=== PATIENT | female | born 1980 | race Caucasian/White ===

== ENCOUNTER 2020-09-19 14:49 | Outpatient (REF) | payer OTHER, SELFPAY ==
[2020-09-19 15:39] LABS: MANUAL DIFF FLAG NO
[2020-09-19 15:46] LABS: Basophils Percent Auto 0.5 % (0-2); Eosinophils Absolute Auto 0.3 X10*3/uL (0.0-0.4); Hematocrit 39.1 % (37-47); Hemoglobin 12.8 g/dl (12.0-16.0); Imm Gran Abs Auto 0.03 X10*3/uL (0.00-0.03); Imm Gran Pct Auto 0.3 % (0.0-0.4); Lymphocytes Absolute Auto 2.5 X10*3/uL (1.2-4.9); Lymphocytes Percent Auto 29.2 % (20-40); Mean Corpuscular HGB Conc 32.7 g/dl (31.0-35.0); Mean Corpuscular Hemoglobin 29.7 pg (27.0-33.0); Mean Corpuscular Volume 90.7 fL (80-98); Mean Platelet Volume 11.3 fL (9.4-12.3); Monocytes Absolute Auto 0.6 X10*3/uL (0.1-1.2); Monocytes Percent Auto 7.2 % (2-11); Neutrophils Absolute Auto 5.2 X10*3/uL (2.0-8.3); Neutrophils Percent Auto 59.8 % (45-73); Platelet Count 346 X10*3/uL (160-400); Red Blood Count 4.31 X10*6/uL (4.20-5.50); Red Cell Distribution Width 13.4 % (11.0-16.0); White Blood Count 8.6 X10*3/uL (4.8-10.8)
[2020-09-19 16:07] LABS: Anion Gap 10 (12-20); Blood Urea Nitrogen 7 mg/dL (9-16); Calcium 8.9 mg/dL (8.4-10.2); Carbon Dioxide 25 mmol/L (22-29); Chloride 106 mmol/L (96-108); Estimated Glomerular Filt Rate > 60; Glucose Fasting 80 mg/dL (60-99); Potassium 4.8 mmol/l (3.3-5.1); Sodium 136 mmol/L (135-145)
[2020-09-19 16:33] LABS: Erythrocyte Sedimentation Rate 10 MM/HR (0-20)
== END 2020-09-19 14:50 | disposition home or self-care (01) ==
LOC: HO.LAB 14:49
PROVIDERS: Visit Provider Nurse Practitioner Family
DX: M25.512 Pain in left shoulder (principal)
CPT/HCPCS: 36415; 80048; 85025; 85652

== ENCOUNTER → 2021-03-13 14:16 | Outpatient (BNVA) | payer OTHER, SELFPAY | PROVIDERS: PCP Internal Medicine; Visit Provider Urology | DX: N39.0 Urinary tract infection, site not specified (principal) | CPT/HCPCS: 51798; 99202 ==

== ENCOUNTER 2021-05-07 14:16 | Outpatient (REF) | payer OTHER, SELFPAY ==
--- NOTE | ~2021-05-07 | US_ITS ---
EXAMINATION: US VENOUS ULTRASOUND WITH DOPPLER LOWER EXTREMITY, LEFT CLINICAL INFORMATION: Pain left lower leg. COMPARISON: None TECHNIQUE: Ultrasound of the deep veins is performed from the hip to the calf with compression sonography and color and pulse Doppler assessment. Spectral analysis with color-flow imaging is performed. FINDINGS: There is normal venous compression and respiratory variation and augmented flow. The visualized common femoral vein, superficial femoral vein, profunda femoral vein, popliteal vein, and the trifurcation region shows no evidence of deep venous thrombosis. There is no significant popliteal fossa cyst. There is a small lymph nodes seen in the groin measuring 2.1 x 0.9 x 0.9 cm. If the patient's symptoms persist, followup ultrasound in 5 days 7 days might be of value to exclude proximal propagation from a non-visualized calf vein. US/US venous duplex LE IMPRESSION: No DVT demonstrated in the left lower extremity.
== END 2021-05-07 14:17 | disposition home or self-care (01) ==
LOC: HO.HMGCX 14:16
PROVIDERS: PCP Internal Medicine; Visit Provider Nurse Practitioner Family
DX: M79.662 Pain in left lower leg (principal); M25.569 Pain in unspecified knee
CPT/HCPCS: 93971

== ENCOUNTER 2021-07-13 00:27 | Emergency (ER) | payer OTHER, SELFPAY ==
--- NOTE | ~2021-07-13 | XR_ITS ---
EXAMINATION: XR ANKLE, LEFT CLINICAL INFORMATION: Ankle injury COMPARISON: 06/24/2018 TECHNIQUE: AP, lateral, and mortise views of the left ankle. FINDINGS: No fracture or dislocation. The ankle mortise is congruent. No ankle joint effusion. The soft tissues are unremarkable. XR/XR ankle LT min 3V IMPRESSION: No acute osseous abnormality.
[2021-07-13 00:36] VITALS: BP 104/69; PULSE 116; RESP 16; TEMP 36.2; O2SAT 94; BMI 32.8
[2021-07-13] MEDS: Acetaminophen 325 MG TABLET 975 MG PO (05:20)
[2021-07-13] MEDS: Ibuprofen 400 MG TABLET PO (05:20)
--- NOTE | 2021-07-13 05:20 | ED_ITS ---
HPI - Extremity Injury (Lower) General Chief Complaint: Extremity Injury, Lower Stated Complaint: foot inj Time Seen by Provider: 07/13/21 05:10 Source: patient Mode of arrival: ambulatory History of Present Illness HPI Narrative: 40-year-old female states that she was walking down a small hill yesterday and twisted her left ankle with subsequent swelling and pain but was able to continue to bear weight but wanted to have the ankle further evaluated. She states that she has twisted this ankle many times in the past. She denies any numbness or tingling into the foot and otherwise has no acute complaints. Related Data Previous Rx's Medication Instructions Recorded nitrofurantoin macrocrystal 50 mg 50 mg PO BEDTIME 90 Days #90 cap 01/24/21 capsule ascorbic acid (vitamin C) 1,000 mg 1 g PO DAILY 90 Days #90 tab 03/13/21 tablet sulfamethoxazole 400 1 tab PO BEDTIME 90 Days #90 tab 03/13/21 mg-trimethoprim 80 mg tablet (Bactrim) cyclobenzaprine 5 mg tablet 5 mg PO TID PRN #15 tab 05/07/21 Allergies Allergy/AdvReac Type Severity Reaction Status Date / Time No Known Allergies Allergy Verified 01/24/21 13:24 Review of Systems Review of Systems: Pertinent positives and negatives as stated in HPI 10 point review of systems is otherwise negative. [facility] Past Medical History Source: nursing notes reviewed Medical History Recurrent UTI UTI (urinary tract infection) Surgical History History of umbilical hernia repair Family History Family History Father No problems noted. Mother No problems noted. Social History Social History Alcohol intake: never Advance Directives: No Advance Directives Information Provided: No Patient : No Physical Exam Vital Signs: Vital Signs: Last Vital Signs Temp 97.1 F 07/13/21 00:36 Pulse 116 H 07/13/21 00:36 Resp 16 07/13/21 00:36 BP 104/69 07/13/21 00:36 Pulse Ox 94 07/13/21 00:36 Body Mass Index 32.8 VITAL SIGNS: Reviewed. GENERAL: Well developed, well nourished, in no acute distress. HEAD: Normocephalic/atraumatic EYES: PERRLA, EOMI LUNGS: Normal breath sounds. No adventitious sounds or accessory muscle use. SpO2<94> CARDIOVASCULAR: Regular rate and rhythm without noted murmurs ABDOMEN: Soft, non-tender, non-distended with bowel sounds. LEFT ANKLE: Mild swelling noted at the lateral malleolus without erythema or induration and strong, palpable DP/PT with sensation intact. NEUROLOGIC: Alert and oriented x 4. Course Course Course Narrative: 40-year-old female with history and clinical presentation consistent with ankle sprain and on review of all x-rays there is no evidence to suggest fracture or dislocation. Patient was provided with combination analgesics and an Jose Angel wrap was placed on her left ankle and she was discharged home in stable condition. Discharge Plan Discharge Clinical Impression: Left ankle sprain Patient Disposition: Home, Self-Care Instructions: Ankle Sprain (ED), R.I.C.E. Treatment (ED) Additional Instructions: 1. Recommend [id number] Tylenol/ibuprofen as needed for pain control. Also apply ice to unexposed skin for 10-15 minutes, 3 to 4 times a day as needed. 2. Please follow-up with your primary care provider in the next 2-3 days for re- evaluation. Return to the ER for acute worsening of symptoms. Prescriptions: No Action cyclobenzaprine 5 mg tablet 5 mg PO TID PRN (Reason: muscle spasm) Qty: 15 RF: 0 nitrofurantoin macrocrystal 50 mg capsule 50 mg PO BEDTIME 90 Days Qty: 90 RF: 1 sulfamethoxazole-trimethoprim [Bactrim] 400-80 mg tablet 1 tab PO BEDTIME 90 Days Qty: 90 RF: 0 ascorbic acid (vitamin C) 1,000 mg tablet 1 g PO DAILY 90 Days Qty: 90 RF: 1 Referrals: Catherine Cuenca MD [Primary Care Provider] - 2 days
== END 2021-07-13 05:50 | disposition home or self-care (01) ==
PROVIDERS: Emergency Provider Student in an Organized Health Care Education/Training Program; PCP Internal Medicine
DX: S93.402A Sprain of unspecified ligament of left ankle, initial encounter (principal); X50.1XXA Overexertion from prolonged static or awkward postures, initial encounter; Y93.01 Activity, walking, marching and hiking; Y92.828 Other wilderness area as the place of occurrence of the external cause; Y99.9 Unspecified external cause status
CPT/HCPCS: 73610; 99283

== ENCOUNTER 2021-07-30 10:15 | Outpatient (REF) | payer OTHER, SELFPAY ==
--- NOTE | ~2021-07-30 | XR_ITS ---
EXAMINATION: XR FOOT, LEFT CLINICAL INFORMATION: Pain in left foot. COMPARISON: XR left ankle 07/13/2021. XR left foot 07/13/2016. TECHNIQUE: AP, lateral, and oblique views of the left foot. FINDINGS: The bones and soft tissues are normal. No fracture. Alignment is anatomic. Joint spaces are maintained. XR/XR foot LT 2V IMPRESSION: Normal left foot.
[2021-07-30 10:58] LABS: MANUAL DIFF FLAG NO
[2021-07-30 11:05] LABS: Basophils Percent Auto 0.5 % (0-2); Eosinophils Absolute Auto 0.3 X10*3/uL (0.0-0.4); Hematocrit 39.7 % (37-47); Hemoglobin 13.4 g/dl (12.0-16.0); Imm Gran Abs Auto 0.02 X10*3/uL (0.00-0.03); Imm Gran Pct Auto 0.3 % (0.0-0.4); Lymphocytes Absolute Auto 2.2 X10*3/uL (1.2-4.9); Lymphocytes Percent Auto 29.3 % (20-40); Mean Corpuscular HGB Conc 33.8 g/dl (31.0-35.0); Mean Corpuscular Hemoglobin 30.7 pg (27.0-33.0); Mean Corpuscular Volume 90.8 fL (80-98); Mean Platelet Volume 11.3 fL (9.4-12.3); Monocytes Absolute Auto 0.6 X10*3/uL (0.1-1.2); Monocytes Percent Auto 7.7 % (2-11); Neutrophils Absolute Auto 4.4 X10*3/uL (2.0-8.3); Neutrophils Percent Auto 58.2 % (45-73); Platelet Count 313 X10*3/uL (160-400); Red Blood Count 4.37 X10*6/uL (4.20-5.50); Red Cell Distribution Width 12.8 % (11.0-16.0); White Blood Count 7.5 X10*3/uL (4.8-10.8)
[2021-07-30 11:09] LABS: Glucose Urine UA NEG (NEG); Leukocyte Esterase Urine NEG (NEG); Nitrite Urine NEG (NEG); Urine Blood NEG (NEG); Urine Ketones NEG (NEG); Urine Protein NEG (NEG-TRACE)
[2021-07-30 11:10] LABS: Appearance Urine CLEAR; Color Urine YELLOW
[2021-07-30 11:23] LABS: RBC Urine 0-2 /HPF (0); Squamous Epithelial Cell Urine 1+ /LPF; WBC Urine 0-2 /HPF (0-4)
[2021-07-30 11:25] LABS: Alanine Aminotransferase 28 U/L (0-31); Albumin Level 4.4 g/dL (3.5-5.0); Alkaline Phosphatase 62 U/L (39-117); Anion Gap 10 (12-20); Aspartate Amino Transferase 30 U/L (5-31); Bilirubin Total 0.7 mg/dL (0.0-1.0); Blood Urea Nitrogen 7 mg/dL (9-16); Calcium 9.2 mg/dL (8.4-10.2); Carbon Dioxide 23 mmol/L (22-29); Chloride 107 mmol/L (96-108); Estimated Glomerular Filt Rate > 60; Glucose Fasting 87 mg/dL (60-99); Potassium 4.4 mmol/L (3.3-5.1); Sodium 136 mmol/L (135-145); Total Protein 7.5 g/dL (6.5-8.0)
== END 2021-07-30 10:16 | disposition home or self-care (01) ==
LOC: HO.LAB 10:15
PROVIDERS: Absent Provider Nurse Practitioner Family; PCP Internal Medicine; Visit Provider Nurse Practitioner Family
DX: M79.672 Pain in left foot (principal); N39.0 Urinary tract infection, site not specified
CPT/HCPCS: 36415; 73620; 80053; 81001; 85025

== ENCOUNTER 2021-12-19 11:33 | Outpatient (REF) | payer OTHER, SELFPAY ==
--- NOTE | ~2021-12-19 | XR_ITS ---
EXAMINATION: XR LUMBAR SPINE CLINICAL INFORMATION: Reason for Exam M54.9 - Dorsalgia, unspecified COMPARISON: None TECHNIQUE: Frontal lateral and coned-down L5-S1 frontal lateral FINDINGS: Five [id number] lumbar vertebrae were identified maintaining normal height and alignments. Mild narrowing of intervertebral disc spaces suggest underlying degenerative disc disease. Radiolucency projecting over the vertebral body of L4 did not persist on coned-down L5-S1 probably bowel gas.. Paravertebral soft tissues are unremarkable. There are radiolucencies, most likely superimposed bowel gas.. No radiographic evidence of osteolytic or osteoblastic lesions. XR/XR lumbar spine 2-3V IMPRESSION: Mild narrowing of disc spaces suggest mild degenerative disc disease. No fracture. Bone alignments remain satisfactory.
== END 2021-12-19 11:34 | disposition home or self-care (01) ==
LOC: HO.XRAY 11:33
PROVIDERS: PCP Internal Medicine; Visit Provider Internal Medicine
DX: M54.9 Dorsalgia, unspecified (principal)
CPT/HCPCS: 72100

== ENCOUNTER 2021-12-20 09:01 | Outpatient (REF) | payer OTHER, SELFPAY ==
[2021-12-20 09:53] LABS: MANUAL DIFF FLAG NO
[2021-12-20 10:35] LABS: Basophils Absolute Auto 0.1 X10*3/uL (0.0-0.2); Basophils Percent Auto 0.8 % (0-2); Eosinophils Absolute Auto 0.3 X10*3/uL (0.0-0.4); Eosinophils Percent Auto 4.4 % (0-4); Hematocrit 41.3 % (37.0-47.0); Hemoglobin 13.7 g/dl (12.0-16.0); Imm Gran Abs Auto 0.02 X10*3/uL (0.00-0.03); Imm Gran Pct Auto 0.3 % (0.0-0.4); Lymphocytes Absolute Auto 2.3 X10*3/uL (1.2-4.9); Mean Corpuscular HGB Conc 33.2 g/dl (31.0-35.0); Mean Corpuscular Hemoglobin 30.5 pg (27.0-33.0); Mean Platelet Volume 10.8 fL (9.4-12.3); Monocytes Absolute Auto 0.6 X10*3/uL (0.1-1.2); Monocytes Percent Auto 7.6 % (2-11); Neutrophils Absolute Auto 4.3 x10*3/uL (2.0-8.3); Neutrophils Percent Auto 56.9 % (45-73); Platelet Count 343 X10*3/uL (160-400); Red Blood Count 4.49 X10*6/uL (4.20-5.50); Red Cell Distribution Width 13.3 % (11.0-16.0); White Blood Count 7.5 X10*3/uL (4.8-10.8)
[2021-12-20 12:21] LABS: Alanine Aminotransferase 51 U/L (0-31); Albumin Level 4.5 g/dL (3.5-5.0); Alkaline Phosphatase 66 U/L (39-117); Anion Gap 12 (12-20); Aspartate Amino Transferase 52 U/L (5-31); Bilirubin Total 0.7 mg/dL (0.0-1.0); Blood Urea Nitrogen 6 mg/dL (9-16); Calcium 9.4 mg/dL (8.4-10.2); Carbon Dioxide 25 mmol/L (22-29); Chloride 108 mmol/L (96-108); Cholesterol 212 mg/dL; Estimated Glomerular Filt Rate > 60; Glucose Fasting 95 mg/dL (60-99); HDL Cholesterol 59 mg/dL; LDL Cholesterol Calculated 134 mg/dl; Potassium 4.5 mmol/L (3.3-5.1); Sodium 140 mmol/L (135-145); Total Protein 7.5 g/dL (6.5-8.0); Triglycerides 95 mg/dL
[2021-12-20 12:25] LABS: Thyroid Stimulating Hormone 0.66 uIU/mL (0.32-4.0)
[2021-12-28 13:07] LABS: Vitamin D 25-OH, D2 <4 ng/mL; Vitamin D 25-OH, D3 <4 ng/mL; Vitamin D 25-OH, Total <4 ng/mL (30-100)
== END 2021-12-20 09:02 | disposition home or self-care (01) ==
LOC: HO.LAB 09:01
PROVIDERS: PCP Internal Medicine; Visit Provider Internal Medicine
DX: Z00.00 Encounter for general adult medical examination without abnormal findings (principal); E78.5 Hyperlipidemia, unspecified; E55.9 Vitamin D deficiency, unspecified; E66.9 Obesity, unspecified; Z68.33 Body mass index [BMI] 33.0-33.9, adult; D64.9 Anemia, unspecified
CPT/HCPCS: 36415; 80053; 80061; 82306; 84443; 85025

== ENCOUNTER → 2022-02-27 13:53 | Outpatient (BNVA) | payer OTHER, SELFPAY | PROVIDERS: PCP Internal Medicine | DX: Z13.89 Encounter for screening for other disorder (principal) ==

== ENCOUNTER 2022-06-26 11:00 | Outpatient (RCR) | payer OTHER, SELFPAY ==
--- NOTE | 2022-06-17 11:46 | MHC.PT.EP ---
[facility] [place] Office [place] Office [place] Office [address] Evette Gonzalez [address] [phone] F: [phone] F: [phone] F: [phone] F: [phone] Physical Therapy Plan of Care Date of Evaluation: Date of Surgery: Diagnosis: low back pain (RC) Assessment: pt is a 41 y/o female presenting to physical therapy w/ referral for low back pain. Her signs and symptoms are consistent w/ lumbar radiculopathy. Impairments include pain, decreased range of motion, decreased strength, impaired functional mobility, gait impairments and impaired postural awareness. pt is a good candidate for skilled PT due to age, potential remediation of impairments, typical disease/condition progression and prognosis, comorbidities, and motivation. pt would benefit from tailored strengthening and stretching exercise program, functional training, postural re-training, neuromuscular re-education, gait training, modalities as needed for pain, equipment safety demonstration. Frequency and Duration: The patient will be seen 2x/wk for 4 wks Short Term Goals: pt will be I w/ HEP to promote self-management of condition. pt will demo proper sitting posture w/ lumbar roll to promote neutral spine. [employer] Goals: pt will report a statistically significant improvement in self-reported outcome measure, Shira, to promote return to PLOF. pt will demo proper lifting mechanics from floor to chest level w/o verbal cueing to promote neutral spine w/ groceries. Treatment Plan: Modalities to reduce pain, spasms and effusion. Manual therapy to restore motion and function. Therapeutic exercise to improve strength and flexibility. Neuromuscular re-education for posture and balance. Therapeutic activities to return to functional activities of daily living. Electronically signed by: Shagufta Garcia PT, DPT Please sign and return to therapist. Thank you for your referral.
--- NOTE | 2022-07-09 08:25 | MHC.PT.DC ---
[facility] [place] Office [place] Office [place] Office [address] Evette Gonzalez [address] [phone] F: [phone] F: [phone] F: [phone] F: [phone] Physical Therapy Discharge Report Diagnosis: low back pain (RC) Date of Surgery: Date of Evaluation: 06/17/22 Date of Discharge: 07/09/22 Treatments to Date: 2 Cancellations to Date: 1 No Shows to Date: 4 Discharge Status: Visit Non-compliance Discharge Summary: Pt HAS A THOROUGH HEP , ?HER COMPLIANCE W HEP- SHE IS D/C AT CURRENT DUE TO POOR ATTENDANCE W SCHED APPTS, AND, SHE HAS THEREFORE NOT MET HER PT GOALS. Electronically signed by: Zenia Greenberg,PT Please sign and return to therapist. Thank you for your referral.
== END 2022-07-09 08:21 | disposition home or self-care (01) ==
LOC: HO.PT 11:00
PROVIDERS: PCP Nurse Practitioner Family; Visit Provider Nurse Practitioner Family
DX: M54.50 Low back pain, unspecified (principal)
CPT/HCPCS: 97110; 97112; 97161

== ENCOUNTER 2022-09-16 12:05 | Outpatient (REF) | payer OTHER, SELFPAY ==
--- NOTE | ~2022-09-16 | US_ITS ---
EXAMINATION: US VENOUS ULTRASOUND WITH DOPPLER LOWER EXTREMITY, LEFT CLINICAL INFORMATION: Left lower extremity pain. COMPARISON: None TECHNIQUE: Ultrasound of the deep veins is performed from the hip to the calf with compression sonography and color and pulse Doppler assessment. Spectral analysis with color-flow imaging is performed. FINDINGS: There is normal venous compression and respiratory variation and augmented flow. The visualized common femoral vein, superficial femoral vein, profunda femoral vein, popliteal vein, and the trifurcation region shows no evidence of deep venous thrombosis. There is no significant popliteal fossa cyst. Normal morphologic left inguinal lymph nodes. If the patient's symptoms persist, followup ultrasound in 5 days 7 days might be of value to exclude proximal propagation from a non-visualized calf vein. US/US venous duplex LE LT IMPRESSION: No DVT demonstrated in the left lower extremity.
[2022-09-16 14:08] LABS: Alanine Aminotransferase 30 U/L (0-31); Albumin Level 4.4 g/dL (3.5-5.0); Alkaline Phosphatase 68 U/L (39-117); Anion Gap 14 (12-20); Aspartate Amino Transferase 33 U/L (5-31); Bilirubin Total 0.8 mg/dL (0.0-1.0); Blood Urea Nitrogen 6 mg/dL (9-16); Calcium 9.3 mg/dL (8.4-10.2); Carbon Dioxide 25 mmol/L (22-29); Chloride 103 mmol/L (96-108); Estimated Glomerular Filt Rate > 60; Glucose Random 81 mg/dL (60-115); Potassium 4.6 mmol/L (3.3-5.1); Sodium 137 mmol/L (135-145); Total Protein 7.5 g/dL (6.5-8.0)
[2022-09-16 14:31] LABS: Vitamin D 25-OH Total 11.1 ng/mL (>30)
== END 2022-09-16 12:06 | disposition home or self-care (01) ==
LOC: HO.US 12:05
PROVIDERS: PCP Internal Medicine; Visit Provider Internal Medicine
DX: M79.605 Pain in left leg (principal); E55.9 Vitamin D deficiency, unspecified
CPT/HCPCS: 36415; 80053; 82306; 93971

== ENCOUNTER → 2022-11-05 10:20 | Outpatient (BNVA) | payer OTHER, SELFPAY | PROVIDERS: PCP Internal Medicine; Visit Provider Anesthesiology | DX: M47.816 Spondylosis without myelopathy or radiculopathy, lumbar region (principal); G89.4 Chronic pain syndrome; M17.11 Unilateral primary osteoarthritis, right knee | CPT/HCPCS: 99202 ==

== ENCOUNTER 2023-01-26 10:51 | Outpatient (REF) | payer OTHER, SELFPAY ==
--- NOTE | ~2023-01-26 | XR_ITS ---
EXAMINATION: XR KNEE, RIGHT CLINICAL INFORMATION: Pain. COMPARISON: None TECHNIQUE: AP and lateral views of the right knee. FINDINGS: Bony alignment and mineralization are normal. The lateral, medial and patellofemoral joint space compartments are well-maintained. There is mild peripheral osteophyte formation of the medial joint space compartment. No fracture, dislocation or significant joint effusion is seen. There is no foreign body. XR/XR knee RT 2V IMPRESSION: 1. There is very mild osteoarthritic change of the medial joint space compartment of the right knee. 2. No fracture, dislocation or joint effusion is seen.
[2023-01-26 13:09] LABS: Alanine Aminotransferase 34 U/L (0-31); Albumin Level 4.2 g/dL (3.5-5.0); Alkaline Phosphatase 66 U/L (39-117); Anion Gap 13 (12-20); Aspartate Amino Transferase 24 U/L (5-31); Bilirubin Total 0.9 mg/dL (0.0-1.0); Blood Urea Nitrogen 9 mg/dL (9-16); Calcium 8.9 mg/dL (8.4-10.2); Carbon Dioxide 24 mmol/L (22-29); Chloride 105 mmol/L (96-108); Cholesterol 187 mg/dL; Estimated Glomerular Filt Rate > 60; Glucose Fasting 91 mg/dL (60-99); HDL Cholesterol 52 mg/dL; LDL Cholesterol Calculated 112 mg/dl; Potassium 3.9 mmol/L (3.3-5.1); Sodium 138 mmol/L (135-145); Total Protein 7.2 g/dL (6.5-8.0); Triglycerides 118 mg/dL
[2023-01-26 13:23] LABS: Folate 6.6 ng/mL (> or = 4.0); Thyroid Stimulating Hormone 1.03 uIU/mL (0.32-4.0); Vitamin B12 187 pg/mL (200-900); Vitamin D 25-OH Total 12.6 ng/mL (>30)
== END 2023-01-26 10:52 | disposition home or self-care (01) ==
LOC: HO.XRAY 10:51
PROVIDERS: PCP Internal Medicine; Visit Provider Internal Medicine
DX: Z00.00 Encounter for general adult medical examination without abnormal findings (principal); E78.5 Hyperlipidemia, unspecified; E55.9 Vitamin D deficiency, unspecified; E66.9 Obesity, unspecified; Z68.33 Body mass index [BMI] 33.0-33.9, adult; E53.8 Deficiency of other specified B group vitamins; M25.561 Pain in right knee
CPT/HCPCS: 36415; 73560; 80053; 80061; 82306; 82607; 82746; 84443

== ENCOUNTER 2023-02-23 14:28 | Outpatient (REF) | payer OTHER, SELFPAY | END 2023-02-23 14:29 | disposition home or self-care (01) | LOC: HO.HOSX 14:28 | PROVIDERS: Visit Provider Physician Assistant | DX: Z13.89 Encounter for screening for other disorder (principal) ==

== ENCOUNTER 2023-02-25 10:52 | Outpatient (REF) | payer OTHER, SELFPAY ==
--- NOTE | ~2023-02-25 | XR_ITS ---
EXAMINATION: XR CHEST CLINICAL INFORMATION: Wheezing COMPARISON: None available. TECHNIQUE: 2 views of the chest were obtained. FINDINGS: No significant abnormality is noted involving the heart, lungs, mediastinum, bony thorax or soft tissues. XR/XR chest 2V IMPRESSION: Unremarkable examination.
== END 2023-02-25 10:53 | disposition home or self-care (01) ==
LOC: HO.HMGCX 10:52
PROVIDERS: Visit Provider Nurse Practitioner Family
DX: R05.9 Cough, unspecified (principal); R06.2 Wheezing
CPT/HCPCS: 71046

== ENCOUNTER 2023-03-09 23:22 | Emergency (ER) | payer OTHER, SELFPAY ==
[2023-03-09 23:50] VITALS: BP 141/82; PULSE 120; RESP 18; TEMP 36.3; O2SAT 97; BMI 28.3
--- NOTE | 2023-03-09 23:55 | PC.NURSE ---
pt changed into hospital attire, placed Iv line, pt applying Ice pack to her face, face is red and burning per pt. Provider is aware, Will continue to monitor.
--- NOTE | 2023-03-10 00:04 | ED_ITS ---
HPI - Allergic Reaction General Chief complaint: Eye Problems Stated complaint: Eyes burning Time Seen by Provider: 03/09/23 23:56 Source: patient Mode of arrival: ambulatory Limitations: no limitations History of Present Illness HPI narrative: Patient has seasonal allergies was at friend's house having wine suddenly noticed rash of the face with eyes were does not know what allergen causing the reaction. No shortness of breath nose tongue swelling or difficulty in breathing no stridor Related Data Previous Rx's Medication Instructions Recorded ascorbic acid (vitamin C) 1,000 mg 1,000 mg PO DAILY 90 days #90 tabs 06/26/22 tablet omeprazole 20 mg capsule,delayed 20 mg PO DAILY 90 days #90 caps 10/14/22 release azithromycin 250 mg tablet See Rx Instructions PO .COMPLEX #6 01/20/23 tabs fluticasone propionate 50 1 spray intranasal DAILY #9.9 mL 01/20/23 mcg/actuation nasal spray,suspension (Flonase Allergy Relief) cyanocobalamin (vitamin B-12) 1,000 mcg IM Q4W 30 days #2 mL 01/27/23 1,000 mcg/mL injection solution ergocalciferol (vitamin D2) 1,250 1,250 mcg PO QWEEK 90 days #13 caps 01/27/23 mcg (50,000 unit) capsule syringe with needle, safety 3 mL #1 ea 01/27/23 25 gauge x 1 (Easy Touch SheathLock Syringe with Needle) cetirizine 10 mg tablet (All Day 10 mg PO DAILY PRN allergy 02/12/23 Allergy (cetirizine)) symptoms 90 days #90 tabs amoxicillin 500 mg-potassium 1 tab PO BID 7 days #14 tabs 02/25/23 clavulanate 125 mg tablet prednisone 50 mg tablet 50 mg PO DAILY 5 days #5 tabs 02/25/23 albuterol sulfate 90 mcg/actuation 1 inh inhalation QID PRN shortness 03/09/23 aerosol inhaler (Ventolin HFA) of breath or wheezing #8.5 grams diphenhydramine HCl 25 mg capsule 50 mg PO TID PRN allergic reaction 03/10/23 (Benadryl) #30 caps prednisone 20 mg tablet 40 mg PO DAILY #10 tabs 03/10/23 Allergies Allergy/AdvReac Type Severity Reaction Status Date / Time No Known Allergies Allergy Verified 02/25/23 10:21 Review of Systems Review of Systems: Yes all other systems are reviewed and are negative [facility] Past Medical History Medical History Class 1 obesity with body mass index (BMI) of 33.0 to 33.9 in adult Hypovitaminosis D Physical exam Recurrent UTI UTI (urinary tract infection) Surgical History History of umbilical hernia repair Family History Family History Father No problems noted. Mother No problems noted. Social History Social History Housing: Apartment Alcohol intake: current Alcohol intake frequency: holidays/special occasions only Alcohol type: wine Patient Tobacco Use Status: Former Tobacco user (18 years ago) Quit Date: 18 years ago e-Cigarette/Vaping Use: Never Used Second Hand Smoke Exposure: No Advance Directives: No Advance Directives Information Provided: No service: No Current occupational status: unemployed Cognitive needs: No Hearing needs: No Vision needs: No Physical Exam ED Vital Signs: Vital Signs - 24 hr 03/09/23 23:50 Temperature 97.4 F Pulse Rate 120 H Respiratory Rate 18 Blood Pressure 141/82 H Pulse Oximetry 97 Oxygen Delivery Method Room Air BMI result Body Mass Index 28.3 Appearance: Alert. Oriented X3. No acute distress. Eyes: PERRLA, No Nystagmus conjunctiva N ENT: Pharynx normal. Oral Mucosa moist erythematous rash over the face lips and tongue normal uvula normal Neck: Normal inspection. Neck supple. CVS: Normal heart rate and rhythm. Pulses normal. Respiratory: No respiratory distress. Equal air entry bilateral, no wheezing/rales/rhonchi Abdomen: Soft and nontender. Skin: Skin warm and dry. Normal skin color. Normal skin turgor erythematous rash on the face no other rash Extremities: No lower extremity edema. No calf tenderness Neuro: Oriented X 3. Medications Administered Discontinued Medications Generic Name Dose Route Start Last Admin Trade Name Freq PRN Reason Stop Dose Admin Diphenhydramine HCl 25 mg 03/10/23 00:21 03/10/23 00:29 Diphenhydramine Hcl 50 Mg/Ml Vial IVPUSH 03/10/23 00:22 25 mg ONCE ONE Administration Methylprednisolone Sodium Succinate 125 mg 03/10/23 00:21 03/10/23 00:28 Methylprednisolone Sod Succ 125 Mg/2 Ml Vial IVPUSH 03/10/23 00:22 125 mg ONCE ONE Administration Medical Decision Making Medical Decision Making [facility] Narrative: Patient with allergic reaction IV Benadryl and Solu-Medrol will discharge patient home prescription for prednisone and Benadryl advised to follow up with PCP for allergy testing Lab Data Labs: Lab Results 03/10/23 03/10/23 Range/Units 00:57 00:57 Urine Color Yellow Urine Appearance Clear Urine pH 6.0 (5.0-9.0) Ur Specific [place] <= 1.005 (1.005-1.025) Urine Protein Negative (Neg-Trace) mg/dL Urine Glucose (UA) Negative (Negative) mg/dL Urine Ketones Trace (Negative) mg/dL Urine Blood Negative (Negative) Urine Nitrite Negative (Negative) Ur Leukocyte Esterase Negative (Negative) Urine RBC 0-2 (0-2) /HPF Urine WBC 0-5 (0-5) /HPF Ur Squamous Epith Cells 0-2 (0-2) /HPF Other Crystals Present Urine Bacteria None Seen (None Seen) Hyaline Casts 0-2 (0-2) /LPF Urine Opiates Screen Not Detected (Not Detect) Urine Fentanyl Screen Not Detected (Not Detect) Ur Barbiturates Screen Not Detected (Not Detect) Ur Phencyclidine Scrn Not Detected (Not Detect) Ur Amphetamines Screen Not Detected (Not Detect) U Benzodiazepines Scrn Not Detected (Not Detect) Urine Cocaine Screen Not Detected (Not Detect) U Marijuana (THC) Screen Not Detected (Not Detect) Discharge Plan Discharge Clinical Impression: Allergic reaction Patient Disposition: Home, Self-Care Instructions: General Allergic Reaction (ED) Additional Instructions: You have allergic reaction to unknown agent Benadryl 1-2 tablets every 6 hours Prednisone as prescribed Follow with PCP if not better Prescriptions: New prednisone 20 mg tablet 40 mg PO DAILY Qty: 10 0RF diphenhydramine HCl [Benadryl] 25 mg capsule 50 mg PO TID PRN (Reason: allergic reaction) Qty: 30 0RF No Action ascorbic acid (vitamin C) 1,000 mg tablet 1,000 mg PO DAILY 90 Days Qty: 90 1RF omeprazole 20 mg capsule,delayed release(DR/EC) 20 mg PO DAILY 90 Days Qty: 90 1RF cyanocobalamin (vitamin B-12) 1,000 mcg/mL solution 1,000 mcg IM Q4W 30 Days Qty: 2 2RF ergocalciferol (vitamin D2) 1,250 mcg (50,000 unit) capsule 1,250 mcg PO QWEEK 90 Days Qty: 13 1RF (DME) Easy Touch SheathLock Syrg-Ndl 3 mL 25 gauge x 1 syringe See Rx Instructions .Route Qty: 1 3RF Rx Instructions: For b12 deficency cetirizine [All Day Allergy (cetirizine)] 10 mg tablet 10 mg PO DAILY PRN (Reason: allergy symptoms) 90 Days Qty: 90 0RF albuterol sulfate [Ventolin HFA] 90 mcg/actuation HFA aerosol inhaler 1 inh inhalation QID PRN (Reason: shortness of breath or wheezing) Qty: 8.5 1RF prednisone 50 mg tablet 50 mg PO DAILY 5 Days Qty: 5 0RF amoxicillin-pot clavulanate 500-125 mg tablet 1 tab PO BID 7 Days Qty: 14 0RF azithromycin 250 mg tablet See Rx Instructions PO .COMPLEX Qty: 6 0RF Rx Instructions: take 500 mg today (day 1), then 250 mg for 4 days (days 2-5) PO fluticasone propionate [Flonase Allergy Relief] 50 mcg/actuation spray,suspension 1 spray intranasal DAILY Qty: 9.9 1RF Rx Instructions: administer into each nostril
[2023-03-10] MEDS: methylPREDNISolone Sod Succ 125 MG/2 ML VIAL IVPUSH (00:28)
[2023-03-10] MEDS: diphenhydrAMINE HCL 50 MG/ML VIAL 25 MG IVPUSH (00:29)
--- NOTE | 2023-03-10 00:33 | PC.NURSE ---
medicated per Mar, Will continue to monitor.
--- NOTE | 2023-03-10 00:55 | PC.NURSE ---
pt able to ambulate to the bathroom with a steady gait. Will continue to monitor.
[2023-03-10 01:11] LABS: Appearance Urine Clear; Color Urine Yellow; Glucose Urine UA Negative (Negative); Leukocyte Esterase Urine Negative (Negative); Nitrite Urine Negative (Negative); Specific Gravity - Urine <= 1.005 (1.005-1.025); Urine Blood Negative (Negative); Urine Ketones Trace mg/dL (Negative); Urine Protein Negative (Neg-Trace)
[2023-03-10 01:20] LABS: RBC Urine 0-2 /HPF (0-2)
[2023-03-10 01:21] LABS: Bacteria Urine None Seen (None Seen); Hyaline Casts Urine 0-2 /LPF (0-2); Other Crystals Urine Present; Squamous Epithelial Cell Urine 0-2 /HPF (0-2); WBC Urine 0-5 /HPF (0-5)
--- NOTE | 2023-03-10 01:23 | PC.NURSE ---
pt eye acuity completed. left eye 20/15 and right 20/20
[2023-03-10 01:27] LABS: Amphetamine Screen Urine Not Detected (Not Detect); Barbiturates, Urine Not Detected (Not Detect); Benzodiazepines Screen Urine Not Detected (Not Detect); Cannabinoid Screen Urine Not Detected (Not Detect); Cocaine Screen Urine Not Detected (Not Detect); Fentanyl, urine Not Detected (Not Detect); Opiate Screen Urine Not Detected (Not Detect); Phencyclidine Screen Urine Not Detected (Not Detect)
== END 2023-03-10 02:21 | disposition home or self-care (01) ==
PROVIDERS: Emergency Provider Internal Medicine; PCP Internal Medicine
DX: L50.0 Allergic urticaria (principal); H57.13 Ocular pain, bilateral; Z79.899 Other long term (current) drug therapy
CPT/HCPCS: 80307; 81001; 96374; 96375; 99284; J1200; J2930

== ENCOUNTER 2023-03-13 08:01 | Outpatient (REF) | payer OTHER, SELFPAY ==
--- NOTE | ~2023-03-13 | XR_ITS ---
EXAMINATION: XR KNEE AP STANDING BOTH KNEES X-RAY RIGHT KNEE CLINICAL INFORMATION: Pain. COMPARISON: None available. TECHNIQUE: Single standing AP view of both knees. Single sunrise view of the right knee. FINDINGS: No acute fractures or subluxation. Mild joint space narrowing of the medial compartments in both knees. No erosions or chondrocalcinosis. No significant soft tissue abnormality. XR/XR knee standing BI IMPRESSION: 1. No acute fractures or subluxation. 2. 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
--- NOTE | ~2023-03-13 | XR_ITS ---
EXAMINATION: XR KNEE AP STANDING BOTH KNEES X-RAY RIGHT KNEE CLINICAL INFORMATION: Pain. COMPARISON: None available. TECHNIQUE: Single standing AP view of both knees. Single sunrise view of the right knee. FINDINGS: No acute fractures or subluxation. Mild joint space narrowing of the medial compartments in both knees. No erosions or chondrocalcinosis. No significant soft tissue abnormality. XR/XR knee RT 1V IMPRESSION: 1. No acute fractures or subluxation. 2. 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
== END 2023-03-13 08:02 | disposition home or self-care (01) ==
LOC: HO.HOSX 08:01
PROVIDERS: Visit Provider Physician Assistant
DX: M17.11 Unilateral primary osteoarthritis, right knee (principal)
CPT/HCPCS: 73560; 73565; 99202

== ENCOUNTER → 2023-03-25 08:51 | Outpatient (BNVA) | payer OTHER, SELFPAY | PROVIDERS: PCP Internal Medicine; Visit Provider Nurse Practitioner Family | DX: K21.9 Gastro-esophageal reflux disease without esophagitis (principal); R05.1 Acute cough; R14.0 Abdominal distension (gaseous) | CPT/HCPCS: 99202 ==

== ENCOUNTER 2023-03-26 | Outpatient (REF) | payer OTHER, SELFPAY ==
[2023-03-31 15:28] LABS: H Pylori Breath Test Negative (Negative)
== END 2023-03-26 00:01 | disposition home or self-care (01) ==
LOC: HO.LNP
PROVIDERS: Visit Provider Nurse Practitioner Family
DX: Z11.2 Encounter for screening for other bacterial diseases (principal)
CPT/HCPCS: 83013

== ENCOUNTER → 2023-03-26 09:08 | Outpatient (BNVA) | payer OTHER, SELFPAY | PROVIDERS: PCP Internal Medicine; Visit Provider Nurse Practitioner Family | DX: Z11.0 Encounter for screening for intestinal infectious diseases (principal) | CPT/HCPCS: 99211 ==

== ENCOUNTER → 2023-05-13 11:27 | Outpatient (BNVA) | payer OTHER, SELFPAY | PROVIDERS: PCP Internal Medicine; Visit Provider Nurse Practitioner Family | DX: K21.9 Gastro-esophageal reflux disease without esophagitis (principal); R14.0 Abdominal distension (gaseous) | CPT/HCPCS: 99212 ==

== ENCOUNTER 2023-06-20 15:38 | Emergency (ER) | payer OTHER, SELFPAY ==
--- NOTE | ~2023-06-20 | XR_ITS ---
EXAMINATION: XR CHEST CLINICAL INFORMATION: Cough and chest pain COMPARISON: None available. TECHNIQUE: 2 views of the chest were obtained. FINDINGS: No significant abnormality is noted involving the heart, lungs, mediastinum, bony thorax or soft tissues. XR/XR chest 2V IMPRESSION: Unremarkable chest examination.
--- NOTE | 2023-06-20 15:41 | ECG_ITS ---
Test Reason : CHEST TIGHTNESS Blood Pressure : / mmHG Vent. Rate : 093 BPM Atrial Rate : 093 BPM P-R Int : 134 ms QRS Dur : 070 ms QT Int : 364 ms P-R-T Axes : 028 -02 -04 degrees QTc Int : 452 ms Normal sinus rhythm Possible Left atrial enlargement Nonspecific T wave abnormality Abnormal ECG When compared with ECG of 01-JAN-2013 07:45, T wave inversion now evident in Anterior leads Referred By: Generic ED Physician Electronically Signed By:Richard Bailey
--- NOTE | 2023-06-20 15:44 | ED_ITS ---
HPI - Chest Pain General Chief Complaint: Upper Respiratory Symptoms Stated Complaint: chest tightness, cold symptoms Time Seen by Provider: 06/20/23 18:29 Source: patient Mode of arrival: ambulatory Limitations: no limitations History of Present Illness HPI narrative: Patient is a 42-year-old female who presents emergency department for evaluation of chest tightness, shortness of breath, productive cough with green phlegm. Symptom onset 5 months ago. Has been followed by her primary care provider, completed a course of antibiotics 3 weeks ago, has trialed multiple allergy medication and steroids without any improvement. Last saw her PCP 2 weeks ago, reports no worsening of symptoms but she has not any relief. Reports covid-19 testing yesterday that was negative. Denies fevers. Related Data Previous Rx's Medication Instructions Recorded ascorbic acid (vitamin C) 1,000 mg 1,000 mg PO DAILY 90 days #90 tabs 06/26/22 tablet ergocalciferol (vitamin D2) 1,250 1,250 mcg PO QWEEK 90 days #13 caps 01/27/23 mcg (50,000 unit) capsule syringe with needle, safety 3 mL #1 ea 01/27/23 25 gauge x 1 (Easy Touch SheathLock Syringe with Needle) albuterol sulfate 90 mcg/actuation 1 inh inhalation QID PRN shortness 03/09/23 aerosol inhaler (Ventolin HFA) of breath or wheezing #8.5 grams cromolyn 4 % eye drops 1 drp ophthalmic (eye) QID 30 days 03/10/23 #10 mL diphenhydramine HCl 25 mg capsule 50 mg PO TID PRN allergic reaction 03/10/23 (Benadryl) #30 caps famotidine 20 mg tablet (Pepcid) 20 mg PO BEDTIME #30 tabs 03/25/23 pantoprazole 40 mg tablet,delayed 40 mg PO DAILY #90 tabs 03/25/23 release bupropion HCl 150 mg 24 hr tablet, 150 mg PO QAM 90 days #90 tabs 05/27/23 extended release cetirizine 10 mg tablet (All Day 10 mg PO DAILY PRN allergy 05/27/23 Allergy (cetirizine)) symptoms 90 days #90 tabs cyanocobalamin (vitamin B-12) 1,000 mcg IM Q4W 30 days #2 mL 06/28/23 1,000 mcg/mL injection solution azithromycin 250 mg tablet See Rx Instructions PO .COMPLEX #6 06/05/23 tabs fluticasone propionate 50 1 spray intranasal DAILY #9.9 mL 06/05/23 mcg/actuation nasal spray,suspension (Flonase Allergy Relief) amoxicillin 875 mg-potassium 1 tab PO Q12H #14 tabs 06/20/23 clavulanate 125 mg tablet fexofenadine 180 mg tablet 180 mg PO DAILY #14 tabs 06/20/23 (Allergy Relief (fexofenadine)) Allergies Allergy/AdvReac Type Severity Reaction Status Date / Time No Known Allergies Allergy Verified 06/05/23 15:59 Review of Systems Review of Systems: Constitutional : No Weight loss, No Fever, No Chills ENT/Mouth :? Positive sore throat, positive Rhinorrhea, positive sinus congestion Eyes: No Eye Pain, No Swelling Cardiovascular : pos Chest Pain, pos SOB, no Dyspnea on Exertion, No Orthopnea, No Edema, No Palpitations Respiratory : No Cough, No Sputum Gastrointestinal : No Nausea, No Vomiting, No Diarrhea, No abdominal Pain, No Hematochezia, No Melena Genitourinary : No Dysuria, No Urinary Frequency Musculoskeletal : No joint pain, No Myalgias, No Joint Swelling Skin : No Skin Lesions, No rash Neuro : No Weakness, No Numbness, No Dizziness, No Headache ? Yes all other systems are reviewed and are negative [facility] Past Medical History Attestation statement: The following information was validated with the patient. Source: old records reviewed Medical History Class 1 obesity with body mass index (BMI) of 33.0 to 33.9 in adult Hypovitaminosis D Physical exam Recurrent UTI UTI (urinary tract infection) Surgical History History of umbilical hernia repair Family History Family History Father No problems noted. Mother No problems noted. Social History Social History Housing: Apartment Alcohol intake: current Alcohol intake frequency: holidays/special occasions only Alcohol type: wine Patient Tobacco Use Status: Former Tobacco user Quit Date: 18 years ago e-Cigarette/Vaping Use: Never Used Second Hand Smoke Exposure: No Advance Directives: No Advance Directives Information Provided: No service: No Current occupational status: unemployed Cognitive needs: No Hearing needs: No Vision needs: No Physical Exam Vital Signs: Vital Signs: Last Vital Signs Temp 98.6 F 06/20/23 15:45 Pulse 104 H 06/20/23 15:45 Resp 16 06/20/23 15:45 BP 127/80 06/20/23 15:45 Pulse Ox 97 06/20/23 15:45 O2 Del Method Room Air 06/20/23 15:45 BMI result Body Mass Index 33.3 Appearance: Alert.?Oriented to person, place and time. No acute distress.?Normal affect. Eyes: Pupils equal, round and reactive to light.? ENT: Pharynx normal.??Bilateral frontal and maxillary sinus tenderness upon palpation. TM normal bilaterally. Neck: Normal inspection.? Neck supple.?? CVS: Heart sounds normal. Normal heart rate and rhythm.? Pulses normal.?? Respiratory: No respiratory distress.? Lung sounds clear to auscultation bilaterally?? Abdomen: Soft and non-tender. Normoactive bowel sounds. ?? Skin: Skin warm and dry.? Normal skin color.? Extremities: No lower extremity edema.? Neuro: Moves all extremities spontaneously. Sensation intact bilaterally. CN II- XII intact. No focal neuro deficits. Ambulates with normal steady gait. Course Course Course Narrative: This is an RME: Additional HPI, ROS, PE not included below will be deferred to primary provider. Patient is a 42-year-old female who presents emergency department for evaluation of chest tightness, shortness of breath, productive cough with green phlegm. Symptom onset 5 months ago. Has been followed by her primary care provider, completed a course of antibiotics 3 weeks ago, has trialed multiple allergy medication and steroids without any improvement. Last saw her PCP 2 weeks ago, reports no worsening of symptoms but she has not any relief. Reports covid-19 testing yesterday that was negative. Denies fevers. Plan: Labs, EKG, CXR Medical Decision Making Medical Decision Making MDM Narrative: Patient is a 42-year-old female who presents to the emergency department for recurrent sinusitis type symptoms. She is overall well-appearing, nontoxic, afebrile. Upon review of her office visits with primary care provider she has received multiple treatments since December of 2022 including treatment with azithromycin, Flonase, Zyrtec, Sudafed, prednisone, Benadryl, cetirizine, Augmentin. As of yet the only time she reports having any significant improvement was when she was taking Augmentin which was in January. Most recently 06/05/2023 she was treated with a 5 day course of azithromycin and reports no improvement in her symptoms. I had an at length discussion with patient regarding chronic sinusitis, in etiology such as bacterial, viral, and allergic rhinitis. As she has had symptomatic relief once over the past 2 months with Augmentin will trial treatment at this time with 7 day course, in addition advised that she may trial fexofenadine as this is the only other antihistamine she has not trialed. Reports not much improvement with prednisone, therefore would defer at this time. I advised patient that she will likely require further follow-up with an store sales leader as per PCP recommendation, and/or ENT specialist. At this time feel that she is stable for discharge, reviewed worrisome signs and symptoms that would warrant re-evaluation in the emergency department. All questions were answered. Differential Diagnosis Differential Diagnoses: The differential diagnosis associated with the presentation includes (Chronic sinusitis, asthma, allergic rhinitis, medication overuse reaction) Lab Data MDM Lab Attestation statement: I reviewed the patient's lab results. CBC and CMP are overall unremarkable. COVID-19 testing is negative 06/20/23 16:44 06/20/23 16:44 Labs: Lab Results 06/20/23 06/20/23 06/20/23 Range/Units 16:44 16:44 16:44 WBC 8.7 (4.8-10.8) X10*3/uL RBC 4.49 (4.20-5.50) X10*6/uL Hgb 13.4 (12.0-16.0) g/dl Hct 40.9 (37.0-47.0) % MCV 91.1 (80.0-98.0) fL MCH 29.8 (27.0-33.0) pg MCHC 32.8 (31.0-35.0) g/dl RDW 13.3 (11.0-16.0) % Plt Count 312 (160-400) X10*3/uL MPV 11.0 (9.4-12.3) fL Immature Gran % (Auto) 0.2 (0.0-0.4) % Neut % (Auto) 70.1 (45-73) % Lymph % (Auto) 13.4 L (20-40) % [place] % (Auto) 9.2 (2-11) % Eos % (Auto) 6.4 H (0-4) % Baso % (Auto) 0.7 (0-2) % Lymph # (Auto) 1.2 (1.2-4.9) X10*3/uL [place] # (Auto) 0.8 (0.1-1.2) X10*3/uL Eos # (Auto) 0.6 H (0.0-0.4) X10*3/uL Baso # (Auto) 0.1 (0.0-0.2) X10*3/uL Abs Immat Gran (auto) 0.02 (0.00-0.03) X10*3/uL Absolute Neuts (auto) 6.1 (2.0-8.3) x10*3/uL Absolute Nucleated RBC 0.000 (0.0-0.012) X10*3/uL Nucleated RBC % (auto) 0.0 (0.0-0.2) /100WBC Sodium 141 (135-145) mmol/L Potassium 3.6 (3.3-5.1) mmol/L Chloride 105 (96-108) mmol/L Carbon Dioxide 27 (22-29) mmol/L Anion Gap 13 (12-20) BUN 7 L (9-16) mg/dL Creatinine 0.68 (0.5-1.4) mg/dL Estim Creat Clear Calc 113.8 Estimated GFR > 60 Random Glucose 95 (60-115) mg/dL Calcium 9.1 (8.4-10.2) mg/dL Total Bilirubin 0.4 (0.0-1.0) mg/dL AST 28 (5-31) U/L ALT 31 (0-31) U/L Alkaline Phosphatase 70 (39-117) U/L Troponin I High Sens < 2.7 (<3.5-17.0) ng/L Total Protein 7.6 (6.5-8.0) g/dL Albumin 4.4 (3.5-5.0) g/dL COVID-19 (KYLE) (Negative) COVID-19 Clin Com 06/20/23 Range/Units 16:44 WBC (4.8-10.8) X10*3/uL RBC (4.20-5.50) X10*6/uL Hgb (12.0-16.0) g/dl Hct (37.0-47.0) % MCV (80.0-98.0) fL MCH (27.0-33.0) pg MCHC (31.0-35.0) g/dl RDW (11.0-16.0) % Plt Count (160-400) X10*3/uL MPV (9.4-12.3) fL Immature Gran % (Auto) (0.0-0.4) % Neut % (Auto) (45-73) % Lymph % (Auto) (20-40) % [place] % (Auto) (2-11) % Eos % (Auto) (0-4) % Baso % (Auto) (0-2) % Lymph # (Auto) (1.2-4.9) X10*3/uL [place] # (Auto) (0.1-1.2) X10*3/uL Eos # (Auto) (0.0-0.4) X10*3/uL Baso # (Auto) (0.0-0.2) X10*3/uL Abs Immat Gran (auto) (0.00-0.03) X10*3/uL Absolute Neuts (auto) (2.0-8.3) x10*3/uL Absolute Nucleated RBC (0.0-0.012) X10*3/uL Nucleated RBC % (auto) (0.0-0.2) /100WBC Sodium (135-145) mmol/L Potassium (3.3-5.1) mmol/L Chloride (96-108) mmol/L Carbon Dioxide (22-29) mmol/L Anion Gap (12-20) BUN (9-16) mg/dL Creatinine (0.5-1.4) mg/dL Estim Creat Clear Calc Estimated GFR Random Glucose (60-115) mg/dL Calcium (8.4-10.2) mg/dL Total Bilirubin (0.0-1.0) mg/dL AST (5-31) U/L ALT (0-31) U/L Alkaline Phosphatase (39-117) U/L Troponin I High Sens (<3.5-17.0) ng/L Total Protein (6.5-8.0) g/dL Albumin (3.5-5.0) g/dL COVID-19 (KYLE) Negative (Negative) COVID-19 Clin Com See Note Independent Interpretation I performed an independent interpretation of an: EKG and Plain X-Ray (Have personally interpreted chest x-ray and agree with radiologist impression, no acute cardiopulmonary process, no evidence of pneumonia.) Interpretation: Rate: 93 Rhythm:? Normal sinus rhythm [place]:? Normal Normal P waves.? Normal ALEJANDRA.?? Normal QRS complex.?? ST T wave :??No ST elevation, no ST depression qTC: 452 prior studies:? December 2012 The study has been interpreted contemporaneously by me. Radiology Impression Discussion of test interpretation with radiology: I have reviewed the radiologist's reading. Radiologist Impression: XR/XR chest 2V IMPRESSION: Unremarkable chest examination. External Record Review External record reviewed: Outpatient record (Primary care office visits as noted above) Prescription Management I considered prescription management with: Antibiotic Discharge Plan Discharge Clinical Impression: Chronic sinusitis Patient Disposition: Home, Self-Care Instructions: Sinusitis (ED) Additional Instructions: As discussed, I have sent a prescription for Augmentin which is an antibiotic to your pharmacy. As you have had response to this antibiotic in the past. Ad ditionally, I have sent a prescription for an alternative allergy medication that you may trial. Ultimately he will require follow-up outpatient with primary care provider and referral to store sales leader and/or ENT specialist. You may return back to the emergency department any new or worsening symptoms or concerns. Prescriptions: New amoxicillin-pot clavulanate 875-125 mg tablet 1 tab PO Q12H Qty: 14 0RF fexofenadine [Allergy Relief (fexofenadine)] 180 mg tablet 180 mg PO DAILY Qty: 14 0RF No Action ascorbic acid (vitamin C) 1,000 mg tablet 1,000 mg PO DAILY 90 Days Qty: 90 1RF ergocalciferol (vitamin D2) 1,250 mcg (50,000 unit) capsule 1,250 mcg PO QWEEK 90 Days Qty: 13 1RF (DME) Easy Touch SheathLock Syrg-Ndl 3 mL 25 gauge x 1 syringe See Rx Instructions .Route Qty: 1 3RF Rx Instructions: For b12 deficency albuterol sulfate [Ventolin HFA] 90 mcg/actuation HFA aerosol inhaler 1 inh inhalation QID PRN (Reason: shortness of breath or wheezing) Qty: 8.5 1RF diphenhydramine HCl [Benadryl] 25 mg capsule 50 mg PO TID PRN (Reason: allergic reaction) Qty: 30 0RF cetirizine [All Day Allergy (cetirizine)] 10 mg tablet 10 mg PO DAILY PRN (Reason: allergy symptoms) 90 Days Qty: 90 0RF cyanocobalamin (vitamin B-12) 1,000 mcg/mL solution 1,000 mcg IM Q4W 30 Days Qty: 2 2RF bupropion HCl 150 mg tablet extended release 24 hr 150 mg PO QAM 90 Days Qty: 90 0RF cromolyn 4 % drops 1 drp ophthalmic (eye) QID 30 Days Qty: 10 1RF fluticasone propionate [Flonase Allergy Relief] 50 mcg/actuation spray,suspension 1 spray intranasal DAILY Qty: 9.9 1RF Rx Instructions: administer into each nostril azithromycin 250 mg tablet See Rx Instructions PO .COMPLEX Qty: 6 0RF Rx Instructions: take 500 mg today (day 1), then 250 mg for 4 days (days 2-5) PO famotidine [Pepcid] 20 mg tablet 20 mg PO BEDTIME Qty: 30 3RF pantoprazole 40 mg tablet,delayed release (DR/EC) 40 mg PO DAILY Qty: 90 2RF Rx Instructions: take one tablet half an hour before breakfast Referrals: Catherine Cuenca MD [Primary Care Provider] - Interventions: ED Discharge Assessment Last Done: 06/20/23 20:11 Discharge Date/Time: 06/20/23 20:12
[2023-06-20 15:45] VITALS: BP 127/80; PULSE 104; RESP 16; TEMP 37; O2SAT 97; BMI 33.3
[2023-06-20 16:49] LABS: MANUAL DIFF FLAG NO
[2023-06-20 16:52] LABS: Basophils Absolute Auto 0.1 X10*3/uL (0.0-0.2); Basophils Percent Auto 0.7 % (0-2); Eosinophils Absolute Auto 0.6 X10*3/uL (0.0-0.4); Eosinophils Percent Auto 6.4 % (0-4); Hematocrit 40.9 % (37.0-47.0); Hemoglobin 13.4 g/dl (12.0-16.0); Imm Gran Abs Auto 0.02 X10*3/uL (0.00-0.03); Imm Gran Pct Auto 0.2 % (0.0-0.4); Lymphocytes Absolute Auto 1.2 X10*3/uL (1.2-4.9); Lymphocytes Percent Auto 13.4 % (20-40); Mean Corpuscular HGB Conc 32.8 g/dl (31.0-35.0); Mean Corpuscular Hemoglobin 29.8 pg (27.0-33.0); Mean Corpuscular Volume 91.1 fL (80.0-98.0); Monocytes Absolute Auto 0.8 X10*3/uL (0.1-1.2); Monocytes Percent Auto 9.2 % (2-11); Neutrophils Absolute Auto 6.1 x10*3/uL (2.0-8.3); Neutrophils Percent Auto 70.1 % (45-73); Platelet Count 312 X10*3/uL (160-400); Red Blood Count 4.49 X10*6/uL (4.20-5.50); Red Cell Distribution Width 13.3 % (11.0-16.0); White Blood Count 8.7 X10*3/uL (4.8-10.8)
[2023-06-20 17:05] LABS: COVID-19 Test Negative (Negative); IDNOW Serial# 08D9AD1C
[2023-06-20 17:06] LABS: Alanine Aminotransferase 31 U/L (0-31); Albumin Level 4.4 g/dL (3.5-5.0); Alkaline Phosphatase 70 U/L (39-117); Anion Gap 13 (12-20); Aspartate Amino Transferase 28 U/L (5-31); Bilirubin Total 0.4 mg/dL (0.0-1.0); Blood Urea Nitrogen 7 mg/dL (9-16); Calcium 9.1 mg/dL (8.4-10.2); Carbon Dioxide 27 mmol/L (22-29); Chloride 105 mmol/L (96-108); Creatinine Clr Calc Pharmacy 113.8; Estimated Glomerular Filt Rate > 60; Glucose Random 95 mg/dL (60-115); Potassium 3.6 mmol/L (3.3-5.1); Sodium 141 mmol/L (135-145); Total Protein 7.6 g/dL (6.5-8.0)
[2023-06-20 17:13] LABS: Troponin-I High Sensitivity < 2.7 ng/L (<3.5-17.0)
== END 2023-06-20 20:12 | disposition home or self-care (01) ==
PROVIDERS: Nurse Practitioner Family; Emergency Provider Emergency Medicine; PCP Internal Medicine
DX: J32.8 Other chronic sinusitis (principal); R07.89 Other chest pain; R06.02 Shortness of breath; Z20.822 Contact with and (suspected) exposure to COVID-19
CPT/HCPCS: 71046; 80053; 84484; 85025; 87635; 93005; 99283

== ENCOUNTER → 2023-06-20 15:41 | Outpatient (BNV) | payer OTHER, SELFPAY | PROVIDERS: Emergency Provider Emergency Medicine; PCP Internal Medicine; Visit Provider Internal Medicine Cardiovascular Disease | DX: R07.9 Chest pain, unspecified (principal) | CPT/HCPCS: 93010 ==

== ENCOUNTER 2023-06-24 10:57 | Outpatient (REF) | payer OTHER, SELFPAY ==
[2023-06-25 01:48] LABS: CT PCR NOT DETECTED (Not Detect.); NG PCR NOT DETECTED (Not Detect.)
[2023-06-25 14:53] LABS: BV Int Neg Control Negative (Negative); BV Int Pos Control Positive (Positive)
[2023-06-30 04:18] LABS: HPV mRNA E6/E7 rflx Not Detected (Not Detected)
== END 2023-06-24 10:58 | disposition home or self-care (01) ==
LOC: HO.LNP 10:57
PROVIDERS: PCP Internal Medicine; Visit Provider Advanced Practice Midwife
DX: Z01.419 Encounter for gynecological examination (general) (routine) without abnormal findings (principal); Z11.51 Encounter for screening for human papillomavirus (HPV)
CPT/HCPCS: 0353U; 87480; 87510; 87624; 87660; 88142

== ENCOUNTER 2023-06-24 10:57 | Outpatient (AMB) | payer OTHER, SELFPAY ==
[2023-06-24 11:08] VITALS: BP 118/70; BMI 33.5
--- NOTE | 2023-06-24 11:08 | MHC.OFFVIS ---
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 Required: No Accompanied by: Self / Same As Patient Allergies No Known Allergies Allergy (Verified 06/24/23 11:08) Medication List - Last Reviewed 06/24/23 by Swetha Goldberg, TRISTAN albuterol sulfate 90 mcg/actuation (Ventolin HFA) 1 inh inhalation QID PRN amoxicillin 500 mg PO BID ascorbic acid (vitamin C) 1,000 mg PO DAILY 90 days bupropion HCl 150 mg PO QAM 90 days cetirizine (All Day Allergy (cetirizine)) 10 mg PO DAILY PRN 90 days cromolyn 4% 1 drp ophthalmic (eye) QID 30 days cyanocobalamin (vitamin B-12) 1,000 mcg IM Q4W 30 days diphenhydramine HCl (Benadryl) 50 mg (2 x 25 mg) PO TID PRN ergocalciferol (vitamin D2) 1,250 mcg PO QWEEK 90 days famotidine (Pepcid) 20 mg PO BEDTIME fexofenadine (Allergy Relief (fexofenadine)) 180 mg PO DAILY fluconazole 150 mg PO Q3D 2 doses fluticasone propionate 50 mcg/actuation (Flonase Allergy Relief) 1 spray intranasal DAILY pantoprazole 40 mg PO DAILY syringe with needle, safety (Easy Touch SheathLock Syringe with Needle) For b12 deficency Is last menstrual period known: Yes Last menstrual period: 06/16/23 (heavier and clots increasing pain and heavier over last 5 yrs ) HPI New patient Annual HPI Details 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 She did have a couple of her children here she is sexually active. But her partner had a vasectomy. Her periods have been getting very heavy over the last 5 years they last about 5 days. She had a Mirena in the past and she did not like how it made her feel at all and she feels like she gained weight and blew up on it. She is so frustrated with the inability to lose weight that she gets very depressed about it and does not feel good at all. She was interested in the weight loss program but she did not think that she qualified she thought she had an appointment coming up with her primary care provider but does not have 1 till December. She has been suffering this year with recurrent sinus infections and was in the emergency room again this weekend with difficulty breathing and congestion they said she did not have bronchitis but she did still have a sinus infection and she is on her 3rd course of antibiotics in recent times she is on Augmentin a 7 day course. She has gotten yeast infections in the past and they can be pretty awful. She has no symptoms of it right now. But she would welcome prescription for Diflucan rather than cream. As she has used both for yeast infections in the past. She started probiotics as well and she just bought some kombucha yesterday but has not tried it yet.. [facility] Medical History Class 1 obesity with body mass index (BMI) of 33.0 to 33.9 in adult Hypovitaminosis D Physical exam Recurrent UTI UTI (urinary tract infection) Surgical History History of umbilical hernia repair Family History Father No problems noted. Mother No problems noted. Social History Housing: Apartment Alcohol intake: current Alcohol intake frequency: holidays/special occasions only Alcohol type: wine Patient Tobacco Use Status: Former Tobacco user Quit Date: 18 years ago e-Cigarette/Vaping Use: Never Used Second Hand Smoke Exposure: No service: No Current occupational status: unemployed Cognitive needs: No Hearing needs: No Vision needs: No Female Reproductive History Menstrual Date of last menstrual period: 06/16/23 (heavier and clots increasing pain and heavier over last 5 yrs ) Total pregnancies: 5 Number of Living Children: 5 Date of last pap smear: 06/09/14 Physical Exam Vital Signs: Last Vital Signs BP 118/70 06/24/23 11:08 BMI result Body Mass Index 33.5 Const General: healthy appearing, comfortable, no acute distress, well developed and alert Nutritional Appearance: average body habitus Orientation/consciousness: patient oriented x3 Limitations: no limitations HEENT Head: Yes normocephalic Neck Neck: Yes normal visual inspection Chest Chest palpation & inspection: normal inspection of the chest Breast/axilla inspection: normal inspection of the breasts and normal inspection of the axillae Breast/axilla palpation: normal palpation of the breasts and normal palpation of the axillae Resp Effort & Inspection: normal respiratory effort GI Inspection: Yes normal to inspection, No Abdominal wall edema and No distended Palpation (GI): Soft to palpation and nontender General: Yes bladder normal to palpation External Female Exam: normal external appearance and normal appearance of the urethra Speculum Exam - Vagina: normal appearance of the vagina, normal palpation and normal vaginal discharge Speculum Exam - Cervix: normal appearance of the cervix, normal palpation and nontender Bimanual exam- vagina & uterus: normal bimanual exam, normal palpation, uterine size normal, bladder normal to palpation, consistency normal, normal palpation, uterine mobility normal, uterine shape normal, No Cervical tenderness present, non-tender and no cervical motion tenderness Bimanual Exam- Adnexa, other: normal adnexae, no masses, normal and No adnexal tenderness Neuro General: patient oriented x3 Assessment & Plan Assessment & Plan (1) Class 1 obesity with body mass index (BMI) of 33.0 to 33.9 in adult: Code(s): E66.9 - Obesity, unspecified; Z68.33 - Body mass index [BMI] 33.0-33.9, adult (2) Screening for cervical cancer: Code(s): Z12.4 - Encounter for screening for malignant neoplasm of cervix (3) Sinusitis: Comment: 06/24/2023 currently on 3rd course of antibiotics, on Augmentin for 7 days; will Rx Diflucan as well discussed probiotics. Code(s): J32.9 - Chronic sinusitis, unspecified Plan -----Discussed in this visit the following: healthy balanced diet, regular and consistent exercise, getting recommended health screens, doing the best she can for her particular health concerns, kegel exercises, pap smear screening and followup recommendations, mammography screening and SBE, normal changes in cycles in her life stage--- . I reviewed her heavy menses at some length and discussed some of the options which could include a Mirena which she was somewhat reluctant to consider but which she might consider and I gave her a brochure about it. She has had it in the past but blamed some of her weight gain on it. Discussed the possible option of progestin only control pills but there be no guarantee that they would work but they might be worth a try and if they did help than that would be fine but if she did not like how they made her feel she could just stop them as well. Alternatives would include considering ablation surgery with all of its risks but usually people need to try a Mirena 1st for it even to be considered. She will think about her options. She does get depressed about her weight but she does have a therapist and she has had the same therapist for 7 years and she has finds it very very helpful and she talks to her every week. She would like me to place the weight management referral which I did and I gave her the brochure for that as well she is not sure she would qualify for surgery but I also said that they have a weight management program that is not surgical. Additionally she believes that she has a mammogram ordered and I told her that if I did not see the order in the system I would place it because she is 42. We will see her in 1 year unless she decides for Mirena or to come sooner Discussed the many challenges with weight loss in some detail as well. Orders: Orders Bacterial Vaginosis Panel Today Z01.419 - Encounter for gynecological examination (general) (routine) without abnormal findings CT NG by PCR Today Z01.419 - Encounter for gynecological examination (general) (routine) without abnormal findings Pap Smear Today Z01.419 - Encounter for gynecological examination (general) (routine) without abnormal findings Referrals Medical Weight Management Referral E66.9 - Obesity, unspecified, J32.9 - Chronic sinusitis, unspecified, Z12.4 - Encounter for screening for malignant neoplasm of cervix, Z68.33 - Body mass index [BMI] 33.0-33.9, adult Medications: New fluconazole may repeat second dose 72 hrs after first dose if symptoms persist 150 mg PO Q3D 2 doses 2 tabs 0RF Coding Level of Care Code New Pt Prev Care 40-64y(53168) Diagnoses Class 1 obesity with body mass index (BMI) of 33.0 to 33.9 in adult E66.9; Z68.33 Screening for cervical cancer Z12.4 Sinusitis J32.9
== END 2023-06-24 12:20 | disposition home or self-care (01) ==
LOC: HO.HWS 10:57
PROVIDERS: PCP Internal Medicine; Visit Provider Advanced Practice Midwife
DX: Z01.419 Encounter for gynecological examination (general) (routine) without abnormal findings (principal); E66.9 Obesity, unspecified; Z68.33 Body mass index [BMI] 33.0-33.9, adult; J32.9 Chronic sinusitis, unspecified
CPT/HCPCS: 99386

== ENCOUNTER 2023-09-02 08:49 | Outpatient (AMB) | payer OTHER, SELFPAY ==
--- NOTE | 2023-09-02 08:57 | AM.OFFVISNUR ---
Intake Intake Visit Reasons: B12 Allergies No Known Allergies Allergy (Verified 06/24/23 11:08) Office Meds cyanocobalamin (vitamin B-12) 1,000 mcg/mL injection solution Performing Provider: Catherine Schmitt MD [facility] Administered by: Jacinta Steele RN on 09/02/23 08:57 Dose Route Admin Location Dispensed Lot Number Expiration Date NDC Heel [employer]orter 1,000 mcg IM left deltoid 1 mL [id number] 01/27/25 28623-703-76 [employer] Coding Assessment & Plan Assessment & Plan Orders: Orders AMB Vitamin B12 Injection Patient Supplied Today D51.9 - Vitamin B12 deficiency anemia, unspecified
== END 2023-09-02 08:58 | disposition home or self-care (01) ==
LOC: HO.HMGH 08:49
PROVIDERS: PCP Internal Medicine; Visit Provider Internal Medicine
DX: D51.9 Vitamin B12 deficiency anemia, unspecified (principal)
CPT/HCPCS: 96372; J3420

== ENCOUNTER 2023-11-18 08:49 | Outpatient (AMB) | payer OTHER, SELFPAY ==
--- NOTE | 2023-11-18 09:39 | MHC.OFFWIV ---
Intake Vital Signs 11/18/23 09:41 Height 5 ft 3 in BP 124/70 Blood Pressure Location Lt brachial Position Sitting Pulse 98 Pulse Source Pulse Oximeter Temp 97.6 F Temp Source Temporal Artery Scan Pulse Oximetry (%) 100 Oxygen Delivery Method Room Air Intake Visit Reasons: EP shortness breath voice loss sinus [id number] Intake Note: Pt is here c/o SOB, sinus pressure and voice loss. Patient Tobacco Use Status: Former Tobacco user Quit Date: 18 years ago Allergies No Known Allergies Allergy (Verified 11/18/23 09:39) Do you need a note to return to daycare/school/sports/work: No HPI HPI Comments History of Present Illness Details Patient is a 42-year-old female in today for sick visit. She states that for the past several weeks she has experienced symptoms of cough, sinus pressure, headache, sore throat. The patient states that when she blows her nose the mucus is bright green/yellow. She has a past medical history significant for asthma. She has tried NyQuil and Tylenol and her albuterol inhaler with little relief. Denies having fever, vomiting, dizziness, chest pain, shortness a breath. Denies travel, or anyone else in the house being sick. Her primary concern is sinus pressure and headache, and lingering cough. Will collect upper respiratory swab. Will have an office Duo[employer]eb. [facility] Medical History Class 1 obesity with body mass index (BMI) of 33.0 to 33.9 in adult Hypovitaminosis D Physical exam Recurrent UTI UTI (urinary tract infection) Surgical History History of umbilical hernia repair Family History Father No problems noted. Mother No problems noted. Social History Housing: Apartment Alcohol intake: current Alcohol intake frequency: holidays/special occasions only Alcohol type: wine Patient Tobacco Use Status: Former Tobacco user Quit Date: 18 years ago e-Cigarette/Vaping Use: Never Used Second Hand Smoke Exposure: No service: No Current occupational status: unemployed Cognitive needs: No Hearing needs: No Vision needs: No Review of Systems Const Details: Constitutional : No Weight loss, No Fever, No Chills, No Fatigue, No Malaise ENT/Mouth : Admits sore throat, Sinus tenderness. Eyes: No Eye Pain, No Swelling, No Redness Cardiovascular : No Chest Pain, No SOB, No Dyspnea on Exertion, No Orthopnea, No Edema, No Palpitations Respiratory : Admits Cough, No Sputum, No Wheezing Gastrointestinal : No Nausea, No Vomiting, No Diarrhea, No Constipation, No abdominal Pain, No Hematochezia, No Melena Neuro : No Weakness, No Numbness, No Dizziness, No Headache Psych : No Anxiety/Panic, No Depression Heme/Lymph: No Bruising, No Bleeding,No Lymphadenopathy Endocrine : No Polyuria, No Polydipsia All other systems reviewed and are negative Physical Exam Vital Signs: Last Vital Signs Temp 97.6 F 11/18/23 09:41 Pulse 98 11/18/23 09:41 BP 124/70 11/18/23 09:41 Pulse Ox 100 11/18/23 09:41 Oxygen Delivery Method Room Air 11/18/23 09:41 Vital signs reviewed and are stable Const Other: Appearance: Alert.? Oriented X3.? No acute distress.? Head: Normocephalic, atraumatic, no step-offs or deformities Eyes: Pupils equal, round and reactive to light.? ENT: Pharynx normal cobblestoned. Sinus tenderness maxillary and frontal. Bilateral effusion TM no erythema. Neck: Normal inspection.? Neck supple.? Full range of motion CVS: Normal heart rate and rhythm.? Pulses normal.? Respiratory: No respiratory distress.? Breath sounds diminshed.? Abdomen: Soft and nontender.? Neuro: Oriented X 3.? No motor deficit.? No sensory deficit. CN 2-12 intact After in office nebulizer treatment lung sounds remained unchanged. Pulse was 94 beats per minute, oxygen saturation 99%, respiratory rate 20 breaths per minute. Results Reviewed Results Reviewed: Will call patient with upper respiratory swab results. Assessment & Plan Assessment & Plan (1) Upper respiratory tract infection: Comment: Patient likely has upper respiratory tract infection. Patient has been instructed that she can use [id number] Mucinex, and Tylenol, along with prescription of prednisone and benzonatate. Patient has been instructed on how to take these medications properly in the common side effects. Code(s): J06.9 - Acute upper respiratory infection, unspecified Qualifiers: URI type: unspecified URI Qualified Code(s): J06.9 - Acute upper respiratory infection, unspecified Plan: Take your medications as prescribed. If you were prescribed antibiotics today, it is important that you take your medication to their entirety, do not skip any doses, do not finish them early. Follow-up with your primary care provider this week. Return to the emergency department with new or worsening symptoms. Such as fevers, chills, chest pain, shortness of breath, nausea, vomiting, dizziness, headache, vision changes, lethargy In case of emergency call 911 (2) Acute sinus infection: Comment: Patient will be given Augmentin to be taken as directed. She has been educated on the side effects of these medications and how to take them properly. Code(s): J01.90 - Acute sinusitis, unspecified Qualifiers: Sinusitis location: maxillary Recurrence: not specified as recurrent Qualified Code(s): J01.00 - Acute maxillary sinusitis, unspecified Plan: Take your medications as prescribed. If you were prescribed antibiotics today, it is important that you take your medication to their entirety, do not skip any doses, do not finish them early. Follow-up with your primary care provider this week. Return to the emergency department with new or worsening symptoms. Such as fevers, chills, chest pain, shortness of breath, nausea, vomiting, dizziness, headache, vision changes, lethargy In case of emergency call 911 Orders: Orders SARS-CoV2/FLU/RSV Today J06.9 - Acute upper respiratory infection, unspecified Medications: New prednisone 50 mg PO DAILY 5 tabs 0RF amoxicillin-pot clavulanate 875-125 mg 1 tab PO BID 20 tabs 0RF benzonatate 100 mg PO BID PRN 20 caps 0RF cough Coding Level of Care Code Est Pt Level 3 (31284) Diagnoses Upper respiratory tract infection, unspecified type J06.9 URI type: unspecified URI Acute maxillary sinusitis, recurrence not specified J01.00 Sinusitis location: maxillary Recurrence: not specified as recurrent Time Spent (min) 30
[2023-11-18 09:41] VITALS: BP 124/70; PULSE 98; TEMP 36.4; O2SAT 100
== END 2023-11-18 11:25 | disposition home or self-care (01) ==
PROVIDERS: PCP Internal Medicine; Visit Provider Nurse Practitioner Primary Care
DX: J06.9 Acute upper respiratory infection, unspecified (principal); J01.00 Acute maxillary sinusitis, unspecified
CPT/HCPCS: 99213

== ENCOUNTER 2023-11-18 13:56 | Outpatient (REF) | payer OTHER, SELFPAY ==
[2023-11-18 14:55] LABS: Influenza A PCR NEGATIVE (Negative); Influenza B PCR NEGATIVE (Negative); Resp Syncy Virus RNA Qual PCR NEGATIVE (Negative); SARS COV2 PCR INHOUSE NEGATIVE (Negative)
== END 2023-11-18 13:57 | disposition home or self-care (01) ==
LOC: HO.HMGCLNP 13:56
PROVIDERS: Visit Provider Nurse Practitioner Primary Care
DX: J06.9 Acute upper respiratory infection, unspecified (principal); Z11.52 Encounter for screening for COVID-19
CPT/HCPCS: 0241U

== ENCOUNTER 2023-12-28 09:33 | Outpatient (AMB) | payer OTHER, SELFPAY ==
--- NOTE | 2023-12-28 09:51 | AM.OFFVISNUR ---
Intake Intake Visit Reasons: B-12 Allergies No Known Allergies Allergy (Verified 11/18/23 09:39) Office Meds cyanocobalamin (vitamin B-12) 1,000 mcg/mL injection solution Performing Provider: Catherine Schmitt MD [facility] Administered by: Akash Wilson RN on 12/28/23 09:45 Dose Route Admin Location Dispensed Lot Number Expiration Date ND [employer] 1,000 mcg IM left deltoid 1 mL [id number] 10/30/25 85478-145-49 TOM CARRION Comments: patient consented for b12 injection. tolerated well. Coding Assessment & Plan Assessment & Plan Orders: Orders AMB Vitamin B12 Injection Patient Supplied Today E53.8 - Deficiency of other specified B group vitamins
== END 2023-12-28 09:50 | disposition home or self-care (01) ==
LOC: HO.HMGH 09:33
PROVIDERS: PCP Internal Medicine; Visit Provider Internal Medicine
DX: E53.8 Deficiency of other specified B group vitamins (principal)
CPT/HCPCS: 96372; J3420

== ENCOUNTER 2024-01-14 08:58 | Outpatient (AMB) | payer OTHER, SELFPAY ==
[2024-01-14 09:17] VITALS: BP 118/70; PULSE 84; TEMP 36.5; O2SAT 96; BMI 32.8
--- NOTE | 2024-01-14 09:17 | AM.OFFWIN_ITS ---
Intake Vital Signs 01/14/24 09:17 Height 5 ft 3 in Weight 185 lb BMI 32.8 BP 118/70 Blood Pressure Location Lt brachial Position Sitting Pulse 84 Pulse Source Pulse Oximeter Temp 97.7 F Temp Source Temporal Artery Scan Pulse Oximetry (%) 96 Oxygen Delivery Method Room Air Intake Visit Reasons: EP Bilateral Ear pain/?Sinus Infection [phone] Intake Note: pt is here today for bilateral ear pain sinus infection started 1 week ago Patient Tobacco Use Status: Former Tobacco user Quit Date: 18 years ago Allergies No Known Allergies Allergy (Verified 01/14/24 09:18) Do you need a note to return to daycare/school/sports/work: No HPI HPI Comments History of Present Illness Details 43 y/o female patient presents to walk i n clinic with c/o URI symptoms that started 1 week ago. Reports nasal congestion and bilateral ear pain. She has tried mucinex, sudafed, Afrin OTC with no relief. Denies fevers chills, nausea or vomiting. Denies SOB or chest pains. [facility] Medical History Class 1 obesity with body mass index (BMI) of 33.0 to 33.9 in adult Hypovitaminosis D Physical exam Recurrent UTI UTI (urinary tract infection) Surgical History History of umbilical hernia repair Family History Father No problems noted. Mother No problems noted. Social History Housing: Apartment Alcohol intake: current Alcohol intake frequency: holidays/special occasions only Alcohol type: wine Patient Tobacco Use Status: Former Tobacco user Quit Date: 18 years ago e-Cigarette/Vaping Use: Never Used Second Hand Smoke Exposure: No service: No Current occupational status: unemployed Cognitive needs: No Hearing needs: No Vision needs: No Review of Systems Const All systems reviewed & are unremarkable except as noted in HPI and below Physical Exam Vital Signs: Last Vital Signs Temp 97.7 F 01/14/24 09:17 Pulse 84 01/14/24 09:17 BP 118/70 01/14/24 09:17 Pulse Ox 96 01/14/24 09:17 Oxygen Delivery Method Room Air 01/14/24 09:17 BMI result Body Mass Index 32.8 Const General: comfortable and no acute distress HEENT Head: Yes normocephalic Ears: external ears normal and TM's normal bilaterally General nose exam: Normal external nose present, Abnormal mucous membranes and turbinates present boggy and erythematous and Nasal discharge present Face and sinus: Yes sinus tenderness Mouth: moist mucous membranes Throat: Yes posterior oropharynx normal Resp Effort & Inspection: normal respiratory effort Auscultation: clear to auscultation bilaterally Cardio Rate: regular rate Rhythm: regular rhythm Assessment & Plan Assessment & Plan (1) Acute rhinosinusitis: Code(s): J01.90 - Acute sinusitis, unspecified Plan: - OTC cold/cough remedies - Warm fluids - rest Orders: Orders SARS-CoV2/FLU/RSV Today J01.90 - Acute sinusitis, unspecified Medications: New azithromycin 500 mg PO DAILY 3 days 3 tabs 0RF J01.90 - Acute sinusitis, unspecified Coding Level of Care Code Est Pt Level 3 (36580) Diagnoses Acute rhinosinusitis J01.90 Time Spent (min) 15
== END 2024-01-14 10:16 | disposition home or self-care (01) ==
PROVIDERS: PCP Internal Medicine; Visit Provider Nurse Practitioner Family
DX: J01.90 Acute sinusitis, unspecified (principal)
CPT/HCPCS: 99213

== ENCOUNTER 2024-01-14 13:00 | Outpatient (REF) | payer OTHER, SELFPAY ==
[2024-01-14 14:00] LABS: Influenza A PCR NEGATIVE (Negative); Influenza B PCR NEGATIVE (Negative); Resp Syncy Virus RNA Qual PCR NEGATIVE (Negative); SARS COV2 PCR INHOUSE NEGATIVE (Negative)
== END 2024-01-14 13:01 | disposition home or self-care (01) ==
LOC: HO.HMGCLNP 13:00
PROVIDERS: Visit Provider Nurse Practitioner Family
DX: J01.90 Acute sinusitis, unspecified (principal)
CPT/HCPCS: 0241U

== ENCOUNTER 2024-01-26 08:42 | Outpatient (AMB) | payer OTHER, SELFPAY ==
--- NOTE | 2024-01-26 08:47 | MHC.PC.OV ---
Vital Signs 01/26/24 08:49 Height 5 ft 3 in Weight 183 lb BMI 32.4 BP 126/80 Blood Pressure Location Lt brachial Position Sitting Intake Visit Reasons: PE Intake Note: Patient here for a physical exam Digitizer Operator Required: No Accompanied by: Self / Same As Patient Allergies No Known Allergies Allergy (Verified 01/26/24 09:17) Medication List - Last Reconciled 01/26/24 by Catherine Schmitt MD albuterol sulfate 90 mcg/actuation (Ventolin HFA) 1 inh inhalation QID PRN ascorbic acid (vitamin C) 1,000 mg PO DAILY 90 days bupropion HCl 150 mg PO QAM 90 days cetirizine (All Day Allergy (cetirizine)) 10 mg PO DAILY PRN 90 days cromolyn 4% 1 drp ophthalmic (eye) QID 30 days cyanocobalamin (vitamin B-12) 1,000 mcg IM Q4W 30 days diphenhydramine HCl (Benadryl) 50 mg (2 x 25 mg) PO TID PRN ergocalciferol (vitamin D2) 1,250 mcg PO QWEEK 90 days famotidine (Pepcid) 20 mg PO BEDTIME fexofenadine (Allergy Relief (fexofenadine)) 180 mg PO DAILY fluticasone propionate 50 mcg/actuation (Flonase Allergy Relief) 1 spray intranasal DAILY pantoprazole 40 mg PO DAILY syringe with needle, safety (Easy Touch SheathLock Syringe with Needle) For b12 deficency Tobacco use date assessed: 01/26/24 Dental Screening Dental Screen Date: 01/26/24 Did you have a dental visit in the last 12 months?: No Did you have a dental problem in the last 6 months where you did not have access to dental care?: No Was dental information given to patient?: Patient has dentist HPI HPI Comments History of Present Illness Details This is a 43-year-old female with mild major depression that comes for her physical exam. On bupropion for depression and she declines to increase the medication. Last Pap smear was 2022 and had HPV negative. No chest pain or shortness of breath. 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 [facility] Medical History Hypovitaminosis D Class 1 obesity with body mass index (BMI) of 33.0 to 33.9 in adult Physical exam Recurrent UTI UTI (urinary tract infection) Surgical History History of umbilical hernia repair Family History Father No problems noted. Mother No problems noted. Social History Housing: Apartment Alcohol intake: current Alcohol intake frequency: holidays/special occasions only Alcohol type: wine Patient Tobacco Use Status: Former Tobacco user Quit Date: 18 years ago e-Cigarette/Vaping Use: Never Used Second Hand Smoke Exposure: No service: No Current occupational status: unemployed Cognitive needs: No Hearing needs: No Vision needs: No Questionnaire PHQ-9 Over the last 2 weeks, how often have you been bothered by any of the following problems? 1. Little interest or pleasure in doing things: not at all 2. Feeling down, depressed, or hopeless: nearly every day 3. Trouble falling or staying asleep, or sleeping too much: nearly every day 4. Feeling tired or having little energy: nearly every day 5. Poor appetite or overeating: not at all 6. Feeling bad about yourself - or that you are a failure or have let yourself or your family down: not at all 7. Trouble concentrating on things, such as reading the newspaper or watching television: several days 8. Moving or speaking so slowly that other people could have noticed. Or the opposite - being so fidgety or restless that you have been moving around a lot more than usual: several days 9. Thoughts that you would be better off or of hurting yourself in some way: not at all Total score: 11 Depression Screening Interpretation: Positive Depression Screening Follow-up: Existing condition and Community Mental Health Worker F/U Depression Screening Done: Yes [id number] - PHQ-9 Billing: Yes Source: Developed by Drs. Gasper Juan, Bernice Michel, Enrique Dinero and colleagues, with an educational marta from [employer]. Thrive Questionnaire Date Thrive assessed: 01/26/24 I am a: Patient What is your living situation today?: I have a steady place to live Within the past 12 months, did the food you bought not last and you didn't have the money to get more?: Never true Within the past 12 months, did you worry whether your food would run out before you got money to buy more?: Never true Do you have trouble paying for medicines?: No Do you have trouble getting transportation to medical appointments?: No Do you have trouble paying your heating and electricity bill?: No Do you have trouble taking care of your child, family member or friend?: No Do you have trouble with day-to-day activities such as bathing, preparing meals, shopping, managing finances, etc.?: No Are you currently unemployed and looking for a job?: No Are you interested in more education?: No Please select the resources that you would like help with: None Currently or been in a relationship where the following occur: no concerns reported THRIVE Score: 0 AUDIT C Alcohol Use Questionnaire (AUDIT-C) 1. How often do you have a drink containing alcohol?: Never Total Score: 0 Score Reviewed/Action Taken: No KVNG-7 AMB Questionnaire KVNG-7 Date KVNG - 7 assessed: 01/26/24 Feeling nervous, anxious, or on edge: 3 = Nearly every day Not being able to stop or control worryin = Several days Worrying too much about different things: 3 = Nearly every day Trouble relaxin = Several days Being so restless that it is hard to sit still: 0 = Not at all Becoming easily annoyed or irritable: 3 = Nearly every day Feeling afraid as if something awful might happen: 1 = Several days Total KVNG-7 score (0-4 normal; 5-9 mild; 10-14 moderate; 15-21 severe): 12 Source: Developed by Drs. Gasper Juan, Bernice Michel, Enrique Dinero and colleagues, with an educational marta from [employer]. KVNG-7 Assessment Billing KVNG-7 Assessment Tool: KVNG-7 Assessment 17869 Review of Systems Const All systems reviewed & are unremarkable except as noted in HPI and below Eyes Reports no additional complaints, Denies change in vision and Denies other visual disturbances Card Denies chest pain at rest, Denies chest pain with activity, Denies edema, Denies irregular heart rhythm, Denies claudication, Denies dyspnea, Denies dyspnea on exertion, Denies orthopnea, Denies paroxysmal nocturnal dyspnea and Denies slow heart rate Resp Denies cough, Denies dyspnea and Denies dyspnea on exertion GI Denies abdominal pain, Denies change in bowel habits, Denies excessive flatus, Denies nausea and Denies vomiting Denies urinary incontinence, Denies urinary hesitancy and Denies urinary urgency Musc Denies abnormal gait, Denies atrophy, Denies deformity and Denies limited range of motion Skin/Breast Denies bleeding lesions, Denies changing lesions and Denies rash Neuro Denies abnormal gait, Denies behavioral changes, Denies confusion and Denies lack of coordination Psych Denies behavioral changes and Denies confusion Physical exam (Primary Care) Vital Signs: Last Vital Signs BP 126/80 01/26/24 08:49 BMI result Body Mass Index 32.4 Tobacco/Smoking Status: Tobacco use Status Tobacco use date assessed 01/26/24 01/26/24 09:00 Patient Tobacco Use Status Former Tobacco user 01/26/24 08:50 e-Cigarette/Vaping Use Never Used 01/26/24 08:50 PHQ-9: PHQ-9 Score PHQ-9: Total score 11 01/26/24 09:00 Depression Screening Interpretation: Positive Depression Screening Follow-up: Existing condition and Community Mental Health Worker F/U Thrive Assessment: Date of Thrive Assessment Date Thrive assessed 01/26/24 01/26/24 09:00 Currently or been in a relationship where the following occur: no concerns reported Const General: No confusion Orientation/consciousness: patient oriented x3 and No confusion HENMT Head: Yes normal to inspection, Yes normocephalic and Yes atraumatic Ears: external ears normal General nose exam: Nasal discharge present Eyes General: appearance normal, both eyes and all related structures Eyelids: Yes eyelids normal Conjunctivae: conjunctivae normal Neck Neck: Yes normal visual inspection and Yes supple Resp Effort & Inspection: normal respiratory effort Auscultation: clear to auscultation bilaterally Cardio Jugular venous distension: no JVD Rate: regular rate Rhythm: regular rhythm Heart sounds: S1 normal heart sound present and S2 normal heart sound present GI Inspection: Yes normal to inspection Palpation (GI): Soft to palpation and nontender Auscultation: normal bowel sounds Skin General skin exam: no rashes or lesions noted Neuro General: patient oriented x3, no focal motor deficits and No confusion Extrem General: Yes full ROM Psych Appearance: grossly normal Assessment and Plan Assessment & Plan (1) Physical exam: Code(s): Z00.00 - Encounter for general adult medical examination without abnormal findings Plan: Repeat in a year. (2) Mild major depression: Code(s): F32.0 - Major depressive disorder, single episode, mild Plan: Continue bupropion. Continue counseling once a week. Orders: Orders Vitamin D 25-OH Total Today E55.9 - Vitamin D deficiency, unspecified Intrinsic Factor Antibodies Today E53.8 - Deficiency of other specified B group vitamins T Spot TB Today Z00.00 - Encounter for general adult medical examination without abnormal findings, Z11.1 - Encounter for screening for respiratory tuberculosis Complete Blood Count Auto Diff Today D64.9 - Anemia, unspecified Vitamin B12 and Folate Today E53.8 - Deficiency of other specified B group vitamins Parietal Cell Antibody Today E53.8 - Deficiency of other specified B group vitamins Comprehensive [place]. Panel Fast Today Z00.00 - Encounter for general adult medical examination without abnormal findings Lipid Panel Today Z00.00 - Encounter for general adult medical examination without abnormal findings Coding Level of Care Code Est Pt Prev Care 40-64y(35725) Diagnoses Physical exam Z00.00 Mild major depression F32.0 Additional Codes KVNG-7 Assessment Billing - KVNG-7 Assessment Tool: KVNG-7 Assessment 22735 ([id number]) Time Spent (min) 32
[2024-01-26 08:49] VITALS: BP 126/80; BMI 32.4
== END 2024-01-26 09:23 | disposition home or self-care (01) ==
PROVIDERS: PCP Internal Medicine; Visit Provider Internal Medicine
DX: Z00.00 Encounter for general adult medical examination without abnormal findings (principal); F32.0 Major depressive disorder, single episode, mild
CPT/HCPCS: 99396

== ENCOUNTER 2024-01-27 08:47 | Outpatient (REF) | payer OTHER, SELFPAY ==
[2024-01-27 09:01] LABS: MANUAL DIFF FLAG NO
[2024-01-27 09:15] LABS: Basophils Absolute Auto 0.1 X10*3/uL (0.0-0.2); Basophils Percent Auto 0.9 % (0-2); Eosinophils Absolute Auto 1.2 X10*3/uL (0.0-0.4); Eosinophils Percent Auto 15.4 % (0-4); Hematocrit 41.7 % (37.0-47.0); Hemoglobin 13.8 g/dl (12.0-16.0); Imm Gran Abs Auto 0.02 X10*3/uL (0.00-0.03); Imm Gran Pct Auto 0.3 % (0.0-0.4); Lymphocytes Absolute Auto 2.2 X10*3/uL (1.2-4.9); Lymphocytes Percent Auto 27.5 % (20-40); Mean Corpuscular HGB Conc 33.1 g/dl (31.0-35.0); Mean Corpuscular Hemoglobin 29.6 pg (27.0-33.0); Mean Corpuscular Volume 89.3 fL (80.0-98.0); Mean Platelet Volume 10.8 fL (9.4-12.3); Monocytes Absolute Auto 0.6 X10*3/uL (0.1-1.2); Monocytes Percent Auto 7.7 % (2-11); Neutrophils Absolute Auto 3.8 x10*3/uL (2.0-8.3); Neutrophils Percent Auto 48.2 % (45-73); Platelet Count 318 X10*3/uL (160-400); Red Blood Count 4.67 X10*6/uL (4.20-5.50); Red Cell Distribution Width 13.4 % (11.0-16.0); White Blood Count 7.9 X10*3/uL (4.8-10.8)
[2024-01-27 09:59] LABS: Alanine Aminotransferase 15 U/L (0-31); Albumin Level 4.3 g/dL (3.5-5.0); Alkaline Phosphatase 72 U/L (39-117); Anion Gap 11 (12-20); Aspartate Amino Transferase 19 U/L (5-31); Bilirubin Total 0.7 mg/dL (0.0-1.0); Blood Urea Nitrogen 5 mg/dL (9-16); Calcium 9.4 mg/dL (8.4-10.2); Carbon Dioxide 28 mmol/L (22-29); Chloride 105 mmol/L (96-108); Cholesterol 176 mg/dL (<200); Estimated Glomerular Filt Rate > 60; Glucose Fasting 98 mg/dL (60-99); HDL Cholesterol 51 mg/dL (>40); LDL Cholesterol Calculated 106 mg/dL (<100); Potassium 3.7 mmol/L (3.3-5.1); Sodium 140 mmol/L (135-145); Total Protein 7.5 g/dL (6.5-8.0); Triglycerides 96 mg/dL (<150)
[2024-01-27 10:16] LABS: Vitamin D 25-OH Total 19.4 ng/mL (>30)
[2024-01-27 14:53] LABS: Folate 8.3 ng/mL (> or = 4.0); Vitamin B12 556 pg/mL (200-900)
[2024-01-30 15:42] LABS: TS Negative Control Passed; TS Panel A 1; TS Panel B 0; TS Positive Control Passed; TSpotTB Negative (Negative)
[2024-02-04 12:52] LABS: Parietal Cell Antibody <=20.0 Unit (<=20.0)
[2024-02-04 20:27] LABS: Intrinsic Factor Antibodies Negative (Negative)
== END 2024-01-27 08:48 | disposition home or self-care (01) ==
LOC: HO.LAB 08:47
PROVIDERS: PCP Internal Medicine; Visit Provider Internal Medicine
DX: Z00.00 Encounter for general adult medical examination without abnormal findings (principal); E55.9 Vitamin D deficiency, unspecified; E53.8 Deficiency of other specified B group vitamins; D64.9 Anemia, unspecified; Z11.1 Encounter for screening for respiratory tuberculosis
CPT/HCPCS: 36415; 80053; 80061; 82306; 82607; 82746; 83516; 85025; 86340; 86481

== ENCOUNTER 2024-02-18 08:52 | Outpatient (AMB) | payer OTHER, SELFPAY ==
--- NOTE | 2024-02-18 08:54 | AM.OFFVISNUR ---
Intake Intake Visit Reasons: B12 shot Allergies No Known Allergies Allergy (Verified 01/26/24 09:17) Office Meds cyanocobalamin (vitamin B-12) 1,000 mcg/mL injection solution Performing Provider: Catherine Schmitt MD [facility] Administered by: Ora Aguirre RN on 02/18/24 08:56 Dose Route Admin Location Dispensed Lot Number Expiration Date [employer] 1,000 mcg IM 1 mL [id number] 01/27/25 14321-946-77 [employer] Coding Assessment & Plan Assessment & Plan Orders: Orders AMB Vitamin B12 Injection Patient Supplied Today E53.8 - Deficiency of other specified B group vitamins
== END 2024-02-18 09:01 | disposition home or self-care (01) ==
PROVIDERS: PCP Internal Medicine; Visit Provider Internal Medicine
DX: E53.8 Deficiency of other specified B group vitamins (principal)
CPT/HCPCS: 96372; J3420

== ENCOUNTER 2024-02-24 08:48 | Outpatient (AMB) | payer OTHER, SELFPAY ==
[2024-02-24 09:15] VITALS: BP 112/80; PULSE 66; TEMP 36.4; O2SAT 97
--- NOTE | 2024-02-24 09:15 | MHC.OFFWIV ---
Intake Vital Signs 02/24/24 09:15 Height 5 ft 3 in Weight 18 lb BMI 3.2 BP 112/80 Blood Pressure Location Lt brachial Position Sitting Pulse 66 Pulse Source Pulse Oximeter Temp 97.6 F Temp Source Temporal Artery Scan Pulse Oximetry (%) 97 Oxygen Delivery Method Room Air Intake Visit Reasons: EP Bilateral Ear pain Intake Note: pt is here today for bilateral ear pain started 3 days ago Patient Tobacco Use Status: Former Tobacco user Quit Date: 18 years ago Allergies No Known Allergies Allergy (Verified 02/24/24 09:35) Do you need a note to return to daycare/school/sports/work: No HPI HPI Comments History of Present Illness Details 43-year-old female presents today complaining of bilateral ear pain nasal congestion cough. She states she has a past medical history of seasonal allergies and has been congested for 1 year. She was seen by an gas engine performance engineer that recommended shot desensitization but the patient's congestion has not cleared for that to begin. She is also still awaiting a referral for pulmonology from her PCP. COUNTS INCLUDE 234 BEDS AT THE [facility] Medical History Hypovitaminosis D Class 1 obesity with body mass index (BMI) of 33.0 to 33.9 in adult Physical exam Recurrent UTI UTI (urinary tract infection) Surgical History History of umbilical hernia repair Family History Father No problems noted. Mother No problems noted. Social History Housing: Apartment Alcohol intake: current Alcohol intake frequency: holidays/special occasions only Alcohol type: wine Patient Tobacco Use Status: Former Tobacco user Quit Date: 18 years ago e-Cigarette/Vaping Use: Never Used Second Hand Smoke Exposure: No service: No Current occupational status: unemployed Cognitive needs: No Hearing needs: No Vision needs: No Review of Systems Eyes Reports no additional complaints ENT Reports nasal congestion, Reports nasal discharge and Reports sinus pressure Card Reports no additional complaints Resp Reports cough and Reports wheezing GI Reports no additional complaints Musc Reports no additional complaints Aller/Immun Reports seasonal rhinorrhea and Reports wheezing Physical Exam Vital Signs: Last Vital Signs Temp 97.6 F 03/27/24 09:15 Pulse 66 02/24/24 09:15 BP 112/80 02/24/24 09:15 Pulse Ox 97 02/24/24 09:15 Oxygen Delivery Method Room Air 02/24/24 09:15 BMI result Body Mass Index 3.2 Const General: no acute distress HEENT Head: Yes normal to inspection, Yes normocephalic and Yes atraumatic Ears: TM abnormal bulging and erythematous General nose exam: Normal external nose present Face and sinus: Yes normal facial exam and Yes sinuses nontender Throat: Yes postnasal drainage Eyes General: appearance normal, both eyes and all related structures Resp Effort & Inspection: normal respiratory effort Auscultation: wheezes scattered wheezes Cardio Rate: regular rate Rhythm: regular rhythm Assessment & Plan Assessment & Plan (1) Otitis media: Code(s): H66.90 - Otitis media, unspecified, unspecified ear Plan: tke steroids and antibiotics as planned. Pt will call PCP for pulmonary F/U (2) Cough: Code(s): R05.9 - Cough, unspecified Qualifiers: Cough type: acute Qualified Code(s): R05.1 - Acute cough Plan: see plan Plan see plan Medications: New amoxicillin 875 mg PO BID 7 days 14 tabs 0RF prednisone prednisone 5 mg: take 8 tablets (40 mg) on Day 1; 7 tablets (35 mg) on Day 2; then decrease by 1 tablet every day until finished PO 21 ea 0RF Coding Level of Care Code Est Pt Level 3 (77543) Diagnoses Otitis media H66.90 Acute cough R05.1 Cough type: acute
== END 2024-02-24 10:15 | disposition home or self-care (01) ==
PROVIDERS: PCP Internal Medicine; Visit Provider Physician Assistant Medical
DX: H66.90 Otitis media, unspecified, unspecified ear (principal); R05.1 Acute cough
CPT/HCPCS: 99213

== ENCOUNTER 2024-03-24 13:36 | Outpatient (AMB) | payer OTHER, SELFPAY ==
--- NOTE | 2024-03-24 13:42 | AM.OFFVISNUR ---
Intake Intake Visit Reasons: b-12 shot Allergies No Known Allergies Allergy (Verified 02/24/24 09:35) Office Meds cyanocobalamin (vitamin B-12) 1,000 mcg/mL injection solution Performing Provider: Catherine Schmitt MD [facility] Administered by: Rylee Rueda RN on 03/24/24 13:42 Dose Route Admin Location Dispensed Lot Number Expiration Date NDC [employer] 1,000 mcg IM 1 mL [id number] 01/27/25 23431-154-59 [employer] Coding Assessment & Plan Assessment & Plan Orders: Orders AMB Vitamin B12 Injection Patient Supplied Today E53.8 - Deficiency of other specified B group vitamins Medications: New cyanocobalamin (vitamin B-12) 1,000 mcg IM ONCE 1 mL 0RF E53.8 - Deficiency of other specified B group vitamins
== END 2024-03-24 13:44 | disposition home or self-care (01) ==
LOC: HO.HMGH 13:36
PROVIDERS: PCP Internal Medicine; Visit Provider Internal Medicine
DX: E53.8 Deficiency of other specified B group vitamins (principal)
CPT/HCPCS: 96372; J3420

== ENCOUNTER 2024-03-24 18:13 | Emergency (ER) | payer OTHER, SELFPAY ==
--- NOTE | ~2024-03-24 | XR_ITS ---
EXAMINATION: XR CHEST CLINICAL INFORMATION: Cough times months. COMPARISON: Chest radiograph dated 06/20/2023. TECHNIQUE: 2 views of the chest were obtained. FINDINGS: Heart size is normal. The lungs are clear. There is no pleural effusion or pneumothorax. No acute osseous abnormality. XR/XR chest 2V IMPRESSION: Stable appearance of the heart and lungs. No active disease.
[2024-03-24 18:28] VITALS: BP 147/76; PULSE 93; RESP 18; TEMP 36.7; O2SAT 96; BMI 32.6
--- NOTE | 2024-03-24 18:29 | ED.GENADULT ---
HPI - General Adult General Chief complaint: Upper Respiratory Symptoms Stated complaint: shortness of breath Time Seen by Provider: 03/24/24 22:38 Source: patient, RN notes reviewed and old records reviewed Mode of arrival: ambulatory Limitations: no limitations History of Present Illness HPI narrative: 43-year-old female presents for evaluation of cough, congestion, shortness of breath. Patient denies any history of asthma or COPD She does state that she has prescribed an albuterol inhaler which she believes is not helping Denies any fevers, chills, sick contacts She reports that she is tried [id number] Mucinex, Claritin and Zyrtec without any improvement She reports her symptoms started a few months ago but have been worse over the last couple of days She has associated headache She reports some chest tightness with coughing only Denies any other medical history Related Data Previous Rx's ?Medication ?Instructions ?Recorded ascorbic acid (vitamin C) 1,000 mg 1,000 mg PO DAILY 90 days #90 tabs 06/26/22 tablet syringe with needle, safety 3 mL #1 ea 01/27/23 25 gauge x 1 (Easy Touch SheathLock Syringe with Needle) cromolyn 4 % eye drops 1 drp ophthalmic (eye) QID 30 days 03/10/23 #10 mL diphenhydramine HCl 25 mg capsule 50 mg (2 x 25 mg) PO TID PRN 03/10/23 (Benadryl) allergic reaction #30 caps famotidine 20 mg tablet (Pepcid) 20 mg PO BEDTIME #30 tabs 03/25/23 fluticasone propionate 50 1 spray intranasal DAILY #9.9 mL 06/05/23 mcg/actuation nasal spray,suspension (Flonase Allergy Relief) fexofenadine 180 mg tablet 180 mg PO DAILY #14 tabs 06/20/23 (Allergy Relief (fexofenadine)) cyanocobalamin (vitamin B-12) 1,000 mcg IM Q4W 30 days #2 mL 10/24/23 1,000 mcg/mL injection solution albuterol sulfate 90 mcg/actuation 1 inh inhalation QID PRN shortness 11/17/23 aerosol inhaler (Ventolin HFA) of breath or wheezing #8.5 grams cetirizine 10 mg tablet (All Day 10 mg PO DAILY PRN allergy 01/01/24 Allergy (cetirizine)) symptoms 90 days #90 tabs pantoprazole 40 mg tablet,delayed 40 mg PO DAILY #90 tabs 01/01/24 release cholecalciferol (vitamin D3) 25 25 mcg PO DAILY 90 days #90 caps 01/27/24 mcg (1,000 unit) capsule bupropion HCl 150 mg 24 hr tablet, 150 mg PO QAM 90 days #90 tabs 02/14/24 extended release amoxicillin 875 mg tablet 875 mg PO BID 7 days #14 tabs 02/24/24 prednisone 5 mg tablets in a dose See Rx Instructions PO .COMPLEX 02/24/24 pack #21 ea azithromycin 250 mg tablet See Rx Instructions PO .COMPLEX #6 03/24/24 tabs prednisone 20 mg tablet 40 mg (2 x 20 mg) PO DAILY #10 tabs 03/24/24 Allergies Allergy/AdvReac Type Severity Reaction Status Date / Time No Known Allergies Allergy Verified 03/24/24 18:30 Review of Systems Constitutional: Constitutional: Denies body ache(s), Denies chills, Denies fever(s), Reports headache(s) and Reports malaise ENT: Reports headache(s), Reports nasal congestion, Reports nasal discharge and Denies sore throat Cardiovascular: Cardiovascular: Reports dyspnea Respiratory: Respiratory: Reports cough and Reports dyspnea Gastrointestinal: Gastrointestinal: Denies abdominal pain, Denies nausea and Denies vomiting Musculoskeletal: Musculoskeletal: Denies back pain Integumentary/Breasts: Skin/Breast: Denies rash Neurologic: Reports headache(s) Psychiatric: Psychiatric: Denies suicidal ideation [facility] Past Medical History Medical History Hypovitaminosis D Class 1 obesity with body mass index (BMI) of 33.0 to 33.9 in adult Physical exam Recurrent UTI UTI (urinary tract infection) Surgical History History of umbilical hernia repair Family History Family History Father No problems noted. Mother No problems noted. Social History Social History Housing: Apartment Alcohol intake: current Alcohol intake frequency: holidays/special occasions only Alcohol type: wine Patient Tobacco Use Status: Former Tobacco user Quit Date: 18 years ago e-Cigarette/Vaping Use: Never Used Second Hand Smoke Exposure: No Advance Directives: No Advance Directives Information Provided: No Do you have a plan to hurt others: No Plan service: No Current occupational status: unemployed Cognitive needs: No Hearing needs: No Vision needs: No Physical Exam ED Vital Signs: Vital Signs - 24 hr 03/24/24 18:28 Temperature 98.1 F Pulse Rate 93 Respiratory Rate 18 Blood Pressure 147/76 H Pulse Oximetry 96 Oxygen Delivery Method Room Air BMI result Body Mass Index 32.6 Const General: healthy appearing, comfortable, no acute distress, alert and awake Nutritional Appearance: well nourished Orientation/consciousness: patient oriented x3 HENMT Other: Patient has frontal and maxillary sinus tenderness palpation. Head: Yes normocephalic and Yes atraumatic Eyes Eyelids: Yes eyelids normal Conjunctivae: conjunctivae normal Sclerae: sclerae normal Corneas: corneas normal Pupils: Equal, round and reactive pupils present EOM: EOMs intact bilaterally Neck Neck: Yes full ROM Resp Other: There is expiratory wheeze throughout Effort & Inspection: normal respiratory effort, able to speak in complete sentences and not labored Cardio Rate: regular rate Rhythm: regular rhythm GI Inspection: No distended Palpation (GI): Soft to palpation, not firm, nontender and no guarding Auscultation: normoactive bowel sounds Skin General skin exam: elasticity normal Neuro General: patient oriented x3 Cranial nerves: Yes Equal, round and reactive pupils present and Yes Bilaterally intact EOM present Cognition (Neuro): normal cognition Extrem Other: Moving all extremities well without any obvious deformities Course Course Course Narrative: This is a rapid medical exam: Additional HPI, ROS, PE not included below will be deferred to primary provider. Patient is a 43-year-old female with history of asthma presenting to the ED with complaint of shortness of breath, cough and and nasal congestion for a few months. Did not sleep last night due to cough. Lightheaded due to coughing. Chest pain due to coughing. Plan: ekg, viral swabs, CXR Medical Decision Making Medical Decision Making MDM Narrative: 43-year-old female who denies any past medical history presents for evaluation of shortness of breath, nasal congestion. She denies asthma but is prescribed an inhaler. She has not a smoker. Symptoms are consistent with upper respiratory infection with sinusitis her symptoms are present for a few months. She has failed [id number] allergy medication will treat with a Z-Jarrod, prednisone. Vital signs are stable, chest x-ray is clear Differential Diagnosis Differential Diagnoses: The differential diagnosis associated with the presentation includes Upper respiratory infection Pneumonia Bronchitis Sinusitis Allergic rhinitis Lab Data MDM Lab Attestation statement: I reviewed the patient's lab results. Viral swab negative Labs: Lab Results 03/24/24 Range/Units 18:47 Influenza Type A (PCR) NEGATIVE (Negative) Influenza Type B (PCR) NEGATIVE (Negative) RSV RNA Qual (PCR) NEGATIVE (Negative) SARS-CoV-2 RNA (RT-PCR) NEGATIVE (Negative) Independent Interpretation I performed an independent interpretation of an: Plain X-Ray (No focal infiltrates or effusions) Radiology Impression Discussion of test interpretation with radiology: I have reviewed the radiologist's reading. Radiologist Impression: Stable chest x-ray without active process Discharge Plan Discharge Clinical Impression: Acute upper respiratory infection Patient Disposition: Home, Self-Care Instructions: Upper Respiratory Infection (ED) Additional Instructions: Take azithromycin and prednisone as prescribed. Continue using your inhalers as needed I recommend that he use an [id number]-efk-thxsrin allergy medications such as Claritin D or Zyrtec D to help with your symptoms Follow-up with your primary doctor Prescriptions: New azithromycin 250 mg tablet See Rx Instructions .ROUTE .COMPLEX Qty: 6 0RF Rx Instructions: For 250 mg dose pack: take 500 mg today (day 1), then 250 mg for 4 days (days 2-5) prednisone 20 mg tablet 40 mg PO DAILY Qty: 10 0RF No Action ascorbic acid (vitamin C) 1,000 mg tablet 1,000 mg PO DAILY 90 Days Qty: 90 1RF (DME) Easy Touch SheathLock Syrg-Ndl 3 mL 25 gauge x 1 syringe See Rx Instructions .Route Qty: 1 3RF Rx Instructions: For b12 deficency cyanocobalamin (vitamin B-12) 1,000 mcg/mL solution 1,000 mcg IM Q4W 30 Days Qty: 2 2RF albuterol sulfate [Ventolin HFA] 90 mcg/actuation HFA aerosol inhaler 1 inh inhalation QID PRN (Reason: shortness of breath or wheezing) Qty: 8.5 1RF cetirizine [All Day Allergy (cetirizine)] 10 mg tablet 10 mg PO DAILY PRN (Reason: allergy symptoms) 90 Days Qty: 90 0RF pantoprazole 40 mg tablet,delayed release (DR/EC) 40 mg PO DAILY Qty: 90 3RF Rx Instructions: take one tablet half an hour before breakfast cholecalciferol (vitamin D3) 25 mcg (1,000 unit) capsule 25 mcg PO DAILY 90 Days Qty: 90 3RF bupropion HCl 150 mg tablet extended release 24 hr 150 mg PO QAM 90 Days Qty: 90 0RF diphenhydramine HCl [Benadryl] 25 mg capsule 50 mg PO TID PRN (Reason: allergic reaction) Qty: 30 0RF fexofenadine [Allergy Relief (fexofenadine)] 180 mg tablet 180 mg PO DAILY Qty: 14 0RF cromolyn 4 % drops 1 drp ophthalmic (eye) QID 30 Days Qty: 10 1RF fluticasone propionate [Flonase Allergy Relief] 50 mcg/actuation spray,suspension 1 spray intranasal DAILY Qty: 9.9 1RF Rx Instructions: administer into each nostril amoxicillin 875 mg tablet 875 mg PO BID 7 Days Qty: 14 0RF prednisone 5 mg tablets,dose pack See Rx Instructions PO .COMPLEX Qty: 21 0RF Rx Instructions: prednisone 5 mg: take 8 tablets (40 mg) on Day 1; 7 tablets (35 mg) on Day 2; then decrease by 1 tablet every day until finished PO famotidine [Pepcid] 20 mg tablet 20 mg PO BEDTIME Qty: 30 3RF Print Language: Korean
--- NOTE | 2024-03-24 18:30 | ECG_ITS ---
Test Reason : CHEST PAIN Blood Pressure : / mmHG Vent. Rate : 086 BPM Atrial Rate : 086 BPM P-R Int : 136 ms QRS Dur : 066 ms QT Int : 368 ms P-R-T Axes : 040 001 -03 degrees QTc Int : 440 ms Normal sinus rhythm Nonspecific T wave abnormality Abnormal ECG When compared with ECG of 20-JUN-2023 16:23, No significant change was found Referred By: Irlanda Chatman Electronically Signed By:KARYNA GROVER MD
--- NOTE | 2024-03-24 18:46 | MHC.EDTECH ---
Triage tech not informed EKG was ordered for Chest pain.
[2024-03-24 19:30] LABS: Influenza A PCR NEGATIVE (Negative); Influenza B PCR NEGATIVE (Negative); Resp Syncy Virus RNA Qual PCR NEGATIVE (Negative); SARS COV2 PCR INHOUSE NEGATIVE (Negative)
[2024-03-24 22:57] VITALS: BP 123/73; PULSE 83; RESP 16; TEMP 37.1; O2SAT 98
== END 2024-03-24 23:18 | disposition home or self-care (01) ==
PROVIDERS: Registered Nurse Emergency; Emergency Provider Emergency Medicine; PCP Internal Medicine
DX: J06.9 Acute upper respiratory infection, unspecified (principal); R06.02 Shortness of breath; R07.89 Other chest pain; Z11.52 Encounter for screening for COVID-19; Z20.822 Contact with and (suspected) exposure to COVID-19; Z79.899 Other long term (current) drug therapy
CPT/HCPCS: 0241U; 71046; 93005; 99283; 99284

== ENCOUNTER → 2024-03-24 18:30 | Outpatient (BNV) | payer OTHER, SELFPAY | PROVIDERS: Emergency Provider Emergency Medicine; PCP Internal Medicine; Visit Provider Internal Medicine Cardiovascular Disease | DX: R94.31 Abnormal electrocardiogram [ECG] [EKG] (principal) | CPT/HCPCS: 93010 ==

== ENCOUNTER 2024-04-13 08:32 | Outpatient (AMB) | payer OTHER, SELFPAY ==
--- NOTE | 2024-04-13 08:33 | MHC.OFFWIV ---
Intake Vital Signs 04/13/24 08:34 Height 5 ft 3 in Weight 184 lb BMI 32.6 BP 110/80 Blood Pressure Location Lt brachial Position Sitting Pulse 85 Pulse Source Pulse Oximeter Temp 97.3 F Temp Source Temporal Artery Scan Pulse Oximetry (%) 95 Oxygen Delivery Method Room Air Intake Visit Reasons: EP Shortness of breath / bad cough Intake Note: pt is here today for shortness of breath and bad cough started 03/24 Patient Tobacco Use Status: Former Tobacco user Quit Date: 18 years ago Allergies No Known Allergies Allergy (Verified 04/13/24 08:37) Do you need a note to return to daycare/school/sports/work: No HPI HPI Comments History of Present Illness Details 43 y/o female patient who presents to walk in clinic with c/o SOB and cough since 03/24. She was seen and evaluated at [facility] (03/24) for similar symptoms. Chest Xray negative and SARs negative. She was prescribed Z-Pack and Prednisone which she completed the course. This is a chronic on-going issue for 1-2 years now. She sees an career and guidance counselor doctor in [place]. She reports that allergy test showed she is allergic to Dogs, dust, mold etc She currently [facility] and has 2 large Dogs. Reports housing has Mold an dust. She does not have anyway else to go. She does not want to get rid of her Dogs either. [facility] Medical History Hypovitaminosis D Class 1 obesity with body mass index (BMI) of 33.0 to 33.9 in adult Physical exam Recurrent UTI UTI (urinary tract infection) Surgical History History of umbilical hernia repair Family History Father No problems noted. Mother No problems noted. Social History Housing: Apartment Alcohol intake: current Alcohol intake frequency: holidays/special occasions only Alcohol type: wine Patient Tobacco Use Status: Former Tobacco user Quit Date: 18 years ago e-Cigarette/Vaping Use: Never Used Second Hand Smoke Exposure: No service: No Current occupational status: unemployed Cognitive needs: No Hearing needs: No Vision needs: No Review of Systems Const All systems reviewed & are unremarkable except as noted in HPI and below Physical Exam Vital Signs: Last Vital Signs Temp 97.3 F 04/13/24 08:34 Pulse 85 04/13/24 08:34 BP 110/80 04/13/24 08:34 Pulse Ox 95 04/13/24 08:34 Oxygen Delivery Method Room Air 04/13/24 08:34 BMI result Body Mass Index 32.6 Const General: no acute distress Nutritional Appearance: overweight Orientation/consciousness: patient oriented x3 HEENT Head: Yes normocephalic Ears: external ears normal and TM abnormal with fluid behind the TM bilateral General nose exam: Normal external nose present, Abnormal mucous membranes and turbinates present boggy and erythematous and Nasal discharge present Face and sinus: Yes normal facial exam and Yes sinus tenderness Mouth: moist mucous membranes Resp Effort & Inspection: normal respiratory effort and able to speak in complete sentences Auscultation: clear to auscultation bilaterally, no crackles, no rales, no rhonchi and no wheezes Neuro General: patient oriented x3 Assessment & Plan Assessment & Plan (1) Allergic rhinitis: Code(s): J30.9 - Allergic rhinitis, unspecified Qualifiers: Allergic rhinitis trigger: animal hair and dander Qualified Code(s): J30.81 - Allergic rhinitis due to animal (cat) (dog) hair and dander Plan: - Take Cetirizine 40 mg (20 mg in the AM and 20 mg in the PM) - F/u with ENT - Advised to make lifestyle changes; she will need to move away from mold and dust, and probably put the Dogs in a alf. Coding Level of Care Code Est Pt Level 3 (75320) Diagnoses Allergic rhinitis due to animal hair and dander J30.81 Allergic rhinitis trigger: animal hair and dander Time Spent (min) 15
[2024-04-13 08:34] VITALS: BP 110/80; PULSE 85; TEMP 36.3; O2SAT 95; BMI 32.6
== END 2024-04-13 10:25 | disposition home or self-care (01) ==
PROVIDERS: PCP Internal Medicine; Visit Provider Nurse Practitioner Family
DX: J30.81 Allergic rhinitis due to animal (cat) (dog) hair and dander (principal)
CPT/HCPCS: 99213

== ENCOUNTER 2024-04-21 09:05 | Outpatient (AMB) | payer OTHER, SELFPAY ==
--- NOTE | 2024-04-21 09:09 | AM.OFFVISNUR ---
Intake Intake Visit Reasons: b-12 shot Allergies No Known Allergies Allergy (Verified 04/13/24 08:37) Office Meds cyanocobalamin (vitamin B-12) 1,000 mcg/mL injection solution Performing Provider: Catherine Schmitt MD [facility] Administered by: Ingris Arteaga RN on 04/21/24 09:38 Dose Route Admin Location Dispensed Lot Number Expiration Date NDC [employer] 1,000 mcg IM 1 mL [id number] 06/26/25 44970-358-14 [facility] [employer] Coding Assessment & Plan Assessment & Plan Orders: Orders AMB Vitamin B12 Injection Patient Supplied Today E53.8 - Deficiency of other specified B group vitamins Medications: New cyanocobalamin (vitamin B-12) 1,000 mcg IM ONCE 1 mL 0RF E53.8 - Deficiency of other specified B group vitamins
== END 2024-04-21 09:42 | disposition home or self-care (01) ==
PROVIDERS: PCP Internal Medicine; Visit Provider Internal Medicine
DX: E53.8 Deficiency of other specified B group vitamins (principal)
CPT/HCPCS: 96372; J3420

== ENCOUNTER 2024-04-22 09:46 | Outpatient (AMB) | payer OTHER, SELFPAY ==
--- NOTE | 2024-04-22 10:34 | AM.OFFWIN_ITS ---
Intake Vital Signs 04/22/24 10:43 Height 5 ft 3 in Weight 184 lb BMI 32.6 BP 122/78 Blood Pressure Location Rt brachial Position Sitting Pulse 70 Pulse Source Pulse Oximeter Temp 98.0 F Temp Source Temporal Artery Scan Pulse Oximetry (%) 98 Oxygen Delivery Method Room Air Intake Visit Reasons: EST/left ankle pain (lobby) Intake Note: Pt is here for left ankle pain Patient Tobacco Use Status: Former Tobacco user Quit Date: 18 years ago Allergies No Known Allergies Allergy (Verified 04/22/24 10:44) Do you need a note to return to daycare/school/sports/work: No HPI HPI Comments History of Present Illness Details 43 y/o female patient who presents to [facility] in clinic with c/o left ankle pain. Pt reports that last Thursday she twisted her Ankle at home. She has been Elevating it, soaking in warm water and applying Ice on/off. [facility] Medical History Hypovitaminosis D Class 1 obesity with body mass index (BMI) of 33.0 to 33.9 in adult Physical exam Recurrent UTI UTI (urinary tract infection) Surgical History History of umbilical hernia repair Family History Father No problems noted. Mother No problems noted. Social History Housing: Apartment Alcohol intake: current Alcohol intake frequency: holidays/special occasions only Alcohol type: wine Patient Tobacco Use Status: Former Tobacco user Quit Date: 18 years ago e-Cigarette/Vaping Use: Never Used Second Hand Smoke Exposure: No service: No Current occupational status: unemployed Cognitive needs: No Hearing needs: No Vision needs: No Review of Systems Const All systems reviewed & are unremarkable except as noted in HPI and below Physical Exam Vital Signs: Last Vital Signs Temp 98.0 F 04/22/24 10:43 Pulse 70 04/22/24 10:43 BP 122/78 04/22/24 10:43 Pulse Ox 98 04/22/24 10:43 Oxygen Delivery Method Room Air 05/24/24 10:43 BMI result Body Mass Index 32.6 Const General: comfortable and no acute distress Orientation/consciousness: patient oriented x3 Skin General skin exam: no rashes or lesions noted Neuro General: patient oriented x3, gait normal and moves all extremities Extrem Right lower extremity: ankle Details: normal to inspection Left lower extremity: ankle Details: tenderness, swelling and normal ROM Psych Speech and movement: Normal speech and movement present Assessment & Plan Assessment & Plan (1) Left ankle strain: Code(s): S96.912A - Strain of unspecified muscle and tendon at ankle and foot level, left foot, initial encounter Qualifiers: Encounter type: initial encounter Qualified Code(s): S96.912A - Strain of unspecified muscle and tendon at ankle and foot level, left foot, initial encounter Plan: - Continue Icing it, elevating and wrap Jose Angel bandage - Ibuprofen for pain relief. Medications: New ibuprofen 800 mg PO Q8H 60 tabs 0RF S96.912A - Strain of unspecified muscle and tendon at ankle and foot level, left foot, initial encounter Coding Level of Care Code Est Pt Level 3 (51556) Diagnoses Strain of left ankle, initial encounter S96.912A Encounter type: initial encounter Time Spent (min) 15
[2024-04-22 10:43] VITALS: BP 122/78; PULSE 70; TEMP 36.7; O2SAT 98; BMI 32.6
== END 2024-04-22 11:37 | disposition home or self-care (01) ==
PROVIDERS: PCP Internal Medicine; Visit Provider Nurse Practitioner Family
DX: S96.912A Strain of unspecified muscle and tendon at ankle and foot level, left foot, initial encounter (principal)
CPT/HCPCS: 99213

== ENCOUNTER 2024-04-26 08:42 | Outpatient (AMB) | payer OTHER, SELFPAY ==
--- NOTE | 2024-04-26 08:48 | A.OFFPC_ITS ---
Vital Signs 04/26/24 08:49 Height 5 ft 3 in Weight 184 lb BMI 32.6 BP 118/80 Blood Pressure Location Lt brachial Position Sitting Intake Visit Reasons: allergies over a year Intake Note: Patient here c/o Allergies Stuffed Casing Tier Required: No Accompanied by: Self / Same As Patient Allergies No Known Allergies Allergy (Verified 04/26/24 09:19) Medication List - Last Reconciled 04/26/24 by Catherine Schmitt MD albuterol sulfate 90 mcg/actuation (Ventolin HFA) 1 inh inhalation QID PRN ascorbic acid (vitamin C) 1,000 mg PO DAILY 90 days bupropion HCl XL 150 mg PO QAM 90 days cetirizine (All Day Allergy (cetirizine)) 10 mg PO DAILY PRN 90 days cholecalciferol (vitamin D3) 25 mcg PO DAILY 90 days cromolyn 4% 1 drp ophthalmic (eye) QID 30 days cyanocobalamin (vitamin B-12) 1,000 mcg IM Q4W 30 days diphenhydramine HCl (Benadryl) 50 mg (2 x 25 mg) PO TID PRN famotidine (Pepcid) 20 mg PO BEDTIME fexofenadine (Allergy Relief (fexofenadine)) 180 mg PO DAILY fluticasone propionate 50 mcg/actuation (Flonase Allergy Relief) 1 spray intranasal DAILY ibuprofen 800 mg PO Q8H pantoprazole 40 mg PO DAILY syringe with needle, safety (Easy Touch SheathLock Syringe with Needle) For b12 deficency Tobacco use date assessed: 01/26/24 Dental Screening Dental Screen Date: 01/26/24 HPI HPI Comments History of Present Illness Details This is a 43-year-old female with GERD, mild asthma, seasonal allergic rhinitis and mild major depression that comes today complaining of nasal congestion secondary to allergies. She is taking cetirizine twice a day. I added montelukast and refer her to an folder inspector. GERD has been stable with pantoprazole. She use rescue inhaler 1 to 2 times a month. Mild major depression has been somewhat stable with bupropion. Depression well be follow in few months. [facility] Medical History Hypovitaminosis D Class 1 obesity with body mass index (BMI) of 33.0 to 33.9 in adult Physical exam Recurrent UTI UTI (urinary tract infection) Surgical History History of umbilical hernia repair Family History Father No problems noted. Mother No problems noted. Social History Housing: Apartment Alcohol intake: current Alcohol intake frequency: holidays/special occasions only Alcohol type: wine Patient Tobacco Use Status: Former Tobacco user Quit Date: 18 years ago e-Cigarette/Vaping Use: Never Used Second Hand Smoke Exposure: No service: No Current occupational status: unemployed Cognitive needs: No Hearing needs: No Vision needs: No Questionnaire PHQ-9 Over the last 2 weeks, how often have you been bothered by any of the following problems? 1. Little interest or pleasure in doing things: several days 2. Feeling down, depressed, or hopeless: several days 3. Trouble falling or staying asleep, or sleeping too much: several days 4. Feeling tired or having little energy: several days 5. Poor appetite or overeating: several days 6. Feeling bad about yourself - or that you are a failure or have let yourself or your family down: several days 7. Trouble concentrating on things, such as reading the newspaper or watching television: several days 8. Moving or speaking so slowly that other people could have noticed. Or the opposite - being so fidgety or restless that you have been moving around a lot more than usual: several days 9. Thoughts that you would be better off or of hurting yourself in some way: not at all Total score: 8 Depression Screening Interpretation: Positive Depression Screening Follow-up: Existing condition, In treatment and Follow-up Visit Requested Depression Screening Done: Yes 46515 - PHQ-9 Billing: Yes Source: Developed by Drs. Gasper Juan, Bernice Michel, Enrique Dinero and colleagues, with an educational marta from [employer]. Thrive Questionnaire Date Thrive assessed: 01/26/24 KVNG-7 AMB Questionnaire KVNG-7 Date KVNG - 7 assessed: 01/26/24 Source: Developed by Drs. Gaspre Juan, Bernice Michel, Enrique Dinero and colleagues, with an educational marta from [employer]. Review of Systems Const All systems reviewed & are unremarkable except as noted in HPI and below Card Denies chest pain at rest, Denies chest pain with activity, Denies edema, Denies irregular heart rhythm, Denies claudication, Denies dyspnea, Denies dyspnea on exertion, Denies orthopnea, Denies paroxysmal nocturnal dyspnea and Denies slow heart rate Resp Denies cough, Denies dyspnea and Denies dyspnea on exertion Physical exam (Primary Care) Vital Signs: Last Vital Signs BP 118/80 04/26/24 08:49 BMI result Body Mass Index 32.6 Tobacco/Smoking Status: Tobacco use Status Tobacco use date assessed 01/26/24 04/26/24 08:54 Patient Tobacco Use Status Former Tobacco user 04/26/24 08:54 e-Cigarette/Vaping Use Never Used 04/26/24 08:54 PHQ-9: PHQ-9 Score PHQ-9: Total score 8 04/26/24 09:28 Depression Screening Interpretation: Positive Depression Screening Follow-up: Existing condition, In treatment and Follow-up Visit Requested Thrive Assessment: Date of Thrive Assessment Date Thrive assessed 01/26/24 04/26/24 08:54 Resp Effort & Inspection: normal respiratory effort Auscultation: clear to auscultation bilaterally Cardio Jugular venous distension: no JVD Rate: regular rate Rhythm: regular rhythm Heart sounds: S1 normal heart sound present and S2 normal heart sound present Extrem General: Yes full ROM Assessment and Plan Assessment & Plan (1) Mild major depression: Code(s): F32.0 - Major depressive disorder, single episode, mild Plan: Continue bupropion. (2) Seasonal allergic rhinitis: Code(s): J30.2 - Other seasonal allergic rhinitis Qualifiers: Allergic rhinitis trigger: pollen Qualified Code(s): J30.1 - Allergic rhinitis due to pollen Plan: Continue cetirizine 10 mg twice a day. Start montelukast. Referred to an folder inspector. (3) Mild asthma: Code(s): J45.909 - Unspecified asthma, uncomplicated Qualifiers: Asthma persistence: persistent Asthma complication type: uncomplicated Qualified Code(s): J45.30 - Mild persistent asthma, uncomplicated Plan: Use rescue inhaler as needed. (4) Chronic GERD: Code(s): K21.9 - Gastro-esophageal reflux disease without esophagitis Plan: Continue PPIs. Orders: Referrals Allergy & Immunology Referral J30.2 - Other seasonal allergic rhinitis Medications: New montelukast 10 mg PO BEDTIME 30 tabs 0RF 30 days Refilled cetirizine (All Day Allergy (cetirizine)) 10 mg PO DAILY PRN 90 tabs 0RF allergy symptoms 90 days Coding Level of Care Code Est Pt Level 4 (71395) Diagnoses Mild major depression F32.0 Seasonal allergic rhinitis due to pollen J30.1 Allergic rhinitis trigger: pollen Mild persistent asthma without complication J45.30 Asthma persistence: persistent Asthma complication type: uncomplicated Chronic GERD K21.9 Time Spent (min) 21
[2024-04-26 08:49] VITALS: BP 118/80; BMI 32.6
== END 2024-04-26 09:26 | disposition home or self-care (01) ==
PROVIDERS: PCP Internal Medicine; Visit Provider Internal Medicine
DX: J30.1 Allergic rhinitis due to pollen (principal); F32.0 Major depressive disorder, single episode, mild; J45.30 Mild persistent asthma, uncomplicated; K21.9 Gastro-esophageal reflux disease without esophagitis
CPT/HCPCS: 99214

== ENCOUNTER 2024-07-26 09:58 | Outpatient (AMB) | payer OTHER, SELFPAY ==
[2024-07-26 09:59] VITALS: BP 112/64; PULSE 78; O2SAT 99; BMI 32.5
--- NOTE | 2024-07-26 09:59 | MHC.PC.OV ---
Vital Signs 07/26/24 09:59 Height 5 ft 3 in Weight 183 lb 4 oz BMI 32.5 BP 112/64 Blood Pressure Location Lt brachial Position Sitting Pulse 78 Pulse Source Pulse Oximeter Pulse Oximetry (%) 99 Oxygen Delivery Method Room Air Intake Visit Reasons: depression Research Physiologist Required: No Accompanied by: Self / Same As Patient Allergies No Known Allergies Allergy (Verified 07/26/24 10:11) Medication List - Last Reconciled 07/26/24 by Catherine Schmitt MD albuterol sulfate 90 mcg/actuation (Ventolin HFA) 1 inh inhalation QID PRN ascorbic acid (vitamin C) 1,000 mg PO DAILY 90 days bupropion HCl XL 150 mg PO QAM 90 days cetirizine (All Day Allergy (cetirizine)) 10 mg PO DAILY PRN 90 days cholecalciferol (vitamin D3) 25 mcg PO DAILY 90 days cromolyn 4% 1 drp ophthalmic (eye) QID 30 days cyanocobalamin (vitamin B-12) 1,000 mcg IM Q4W 30 days diphenhydramine HCl (Benadryl) 50 mg (2 x 25 mg) PO TID PRN famotidine (Pepcid) 20 mg PO BEDTIME fexofenadine (Allergy Relief (fexofenadine)) 180 mg PO DAILY fluticasone propionate 50 mcg/actuation (Flonase Allergy Relief) 1 spray intranasal DAILY ibuprofen 800 mg PO Q8H montelukast 10 mg PO BEDTIME 30 days pantoprazole 40 mg PO DAILY semaglutide (weight loss) (Wegovy) 0.25 mg (0.5 mL) subcut QWEEK 4 weeks syringe with needle, safety (Easy Touch SheathLock Syringe with Needle) For b12 deficency Tobacco use date assessed: 07/26/24 Dental Screening Dental Screen Date: 07/26/24 Did you have a dental visit in the last 12 months?: No Did you have a dental problem in the last 6 months where you did not have access to dental care?: No Was dental information given to patient?: Patient has dentist HPI HPI Comments History of Present Illness Details This is a 43-year-old female with mild major depression, mild asthma, allergic rhinitis and chronic GERD that comes today complaining of nasal congestion, wheezing and cough that started few days ago. No fever. Will start her on prednisone and antibiotics. Depression stable with bupropion. She use rescue inhaler few times a month. Was referred to an drug abuse worker in March but lost the paper and never called them. I gave her the phone number again to call. GERD stable with PPIs. [facility] Medical History (Updated 07/26/24 @ 12:25 by Catherine Schmitt MD) Hypovitaminosis D Class 1 obesity with body mass index (BMI) of 33.0 to 33.9 in adult Physical exam Recurrent UTI UTI (urinary tract infection) Surgical History History of umbilical hernia repair Family History Father No problems noted. Mother No problems noted. Social History Housing: Apartment Alcohol intake: current Alcohol intake frequency: holidays/special occasions only Alcohol type: wine Patient Tobacco Use Status: Former Tobacco user e-Cigarette/Vaping Use: Never Used Second Hand Smoke Exposure: No service: No Current occupational status: unemployed Cognitive needs: No Hearing needs: No Vision needs: No Questionnaire PHQ-9 Over the last 2 weeks, how often have you been bothered by any of the following problems? 1. Little interest or pleasure in doing things: several days 2. Feeling down, depressed, or hopeless: several days 3. Trouble falling or staying asleep, or sleeping too much: several days 4. Feeling tired or having little energy: several days 5. Poor appetite or overeating: several days 6. Feeling bad about yourself - or that you are a failure or have let yourself or your family down: several days 7. Trouble concentrating on things, such as reading the newspaper or watching television: several days 8. Moving or speaking so slowly that other people could have noticed. Or the opposite - being so fidgety or restless that you have been moving around a lot more than usual: several days 9. Thoughts that you would be better off or of hurting yourself in some way: not at all Total score: 8 Depression Screening Interpretation: Positive Depression Screening Follow-up: Existing condition, In treatment and Follow-up Visit Requested Depression Screening Done: Yes 82378 - PHQ-9 Billing: Yes Source: Developed by Drs. Gasper Juan, Enrique Hernández and colleagues, with an educational marta from [employer]. Thrive Questionnaire Date Thrive assessed: 07/26/24 I am a: Patient What is your living situation today?: I have a steady place to live Within the past 12 months, did the food you bought not last and you didn't have the money to get more?: Never true Within the past 12 months, did you worry whether your food would run out before you got money to buy more?: Never true Do you have trouble paying for medicines?: No Do you have trouble getting transportation to medical appointments?: No Do you have trouble paying your heating and electricity bill?: No Do you have trouble taking care of your child, family member or friend?: No Do you have trouble with day-to-day activities such as bathing, preparing meals, shopping, managing finances, etc.?: No Are you currently unemployed and looking for a job?: No Are you interested in more education?: No Please select the resources that you would like help with: None Currently or been in a relationship where the following occur: No concerns reported THRIVE Score: 0 AUDIT C Alcohol Use Questionnaire (AUDIT-C) 1. How often do you have a drink containing alcohol?: Never Total Score: 0 Score Reviewed/Action Taken: No KVNG-7 AMB Questionnaire KVNG-7 Date KVNG - 7 assessed: 07/26/24 Feeling nervous, anxious, or on edge: 1 = Several days Not being able to stop or control worryin = Several days Worrying too much about different things: 1 = Several days Trouble relaxin = Several days Being so restless that it is hard to sit still: 0 = Not at all Becoming easily annoyed or irritable: 1 = Several days Feeling afraid as if something awful might happen: 1 = Several days Total KVNG-7 score (0-4 normal; 5-9 mild; 10-14 moderate; 15-21 severe): 6 Source: Developed by Bernice Naik Kurt Kroenke and colleagues, with an educational marat from [employer]. Review of Systems Const All systems reviewed & are unremarkable except as noted in HPI and below ENT Reports nasal congestion Card Denies chest pain at rest, Denies chest pain with activity, Denies edema, Denies irregular heart rhythm, Denies claudication, Denies dyspnea, Denies dyspnea on exertion, Denies orthopnea, Denies paroxysmal nocturnal dyspnea and Denies slow heart rate Resp Reports cough, Denies dyspnea, Denies dyspnea on exertion and Reports wheezing Aller/Immun Reports wheezing Physical exam (Primary Care) Vital Signs: Last Vital Signs Pulse 78 07/26/24 09:59 BP 112/64 07/26/24 09:59 Pulse Ox 99 07/26/24 09:59 Oxygen Delivery Method Room Air 07/26/24 09:59 BMI result Body Mass Index 32.5 BMI Assessment/Plan discussion: High BMI High, discussed plan: lifestyle, weight reduction, dietary and physical activity Tobacco/Smoking Status: Tobacco use Status Tobacco use date assessed 07/26/24 07/26/24 10:06 Patient Tobacco Use Status Former Tobacco user 07/26/24 10:06 e-Cigarette/Vaping Use Never Used 07/26/24 10:06 PHQ-9: PHQ-9 Score PHQ-9: Total score 8 07/26/24 11:01 Depression Screening Interpretation: Positive Depression Screening Follow-up: Existing condition, In treatment and Follow-up Visit Requested Thrive Assessment: Date of Thrive Assessment Date Thrive assessed 07/26/24 07/26/24 10:06 Currently or been in a relationship where the following occur: No concerns reported Resp Effort & Inspection: normal respiratory effort Auscultation: clear to auscultation bilaterally Cardio Jugular venous distension: no JVD Rate: regular rate Rhythm: regular rhythm Heart sounds: S1 normal heart sound present and S2 normal heart sound present Extrem General: Yes full ROM Assessment and Plan Assessment & Plan (1) URI (upper respiratory infection): Code(s): J06.9 - Acute upper respiratory infection, unspecified Qualifiers: URI type: unspecified URI Qualified Code(s): J06.9 - Acute upper respiratory infection, unspecified Plan: Start antibiotics and prednisone. (2) Mild major depression: Code(s): F32.0 - Major depressive disorder, single episode, mild Plan: Continue bupropion. (3) Chronic GERD: Code(s): K21.9 - Gastro-esophageal reflux disease without esophagitis Plan: Continue PPIs as needed. (4) Mild asthma: Code(s): J45.909 - Unspecified asthma, uncomplicated Qualifiers: Asthma persistence: persistent Asthma complication type: uncomplicated Qualified Code(s): J45.30 - Mild persistent asthma, uncomplicated Plan: Use rescue inhaler as needed. (5) Allergic rhinitis: Code(s): J30.9 - Allergic rhinitis, unspecified Qualifiers: Allergic rhinitis trigger: animal hair and dander Qualified Code(s): J30.81 - Allergic rhinitis due to animal (cat) (dog) hair and dander Plan: Continue antihistamines. Contact drug abuse worker. Medications: New amoxicillin 500 mg PO Q12H 14 tabs 0RF 7 days prednisone Take 4 tabs for 2 days, then 3 tabs for 2 days, then 2 tabs for 2 days, then 1 tab for 2 days 10 mg PO DIRECTED 20 tabs 0RF 8 days Refilled famotidine (Pepcid) 20 mg PO BEDTIME 30 tabs 3RF K21.9 - Gastro-esophageal reflux disease without esophagitis Coding Level of Care Code Est Pt Level 4 (89876) Complex EM visit Add On G2211 Diagnoses Upper respiratory tract infection, unspecified type J06.9 URI type: unspecified URI Mild major depression F32.0 Chronic GERD K21.9 Mild persistent asthma without complication J45.30 Asthma persistence: persistent Asthma complication type: uncomplicated Allergic rhinitis due to animal hair and dander J30.81 Allergic rhinitis trigger: animal hair and dander Time Spent (min) 23
== END 2024-07-26 10:41 | disposition home or self-care (01) ==
PROVIDERS: PCP Internal Medicine; Visit Provider Internal Medicine
DX: J06.9 Acute upper respiratory infection, unspecified (principal); F32.0 Major depressive disorder, single episode, mild; K21.9 Gastro-esophageal reflux disease without esophagitis; J45.30 Mild persistent asthma, uncomplicated; J30.81 Allergic rhinitis due to animal (cat) (dog) hair and dander
CPT/HCPCS: 99214; G2211

== ENCOUNTER 2024-08-26 09:48 | Outpatient (AMB) | payer OTHER, SELFPAY ==
--- NOTE | 2024-08-26 10:34 | MHC.OFFWIV ---
Intake Vital Signs 08/26/24 10:36 Weight 184 lb BP 126/90 H Blood Pressure Location Lt brachial Position Sitting Pulse 77 Pulse Source Pulse Oximeter Temp 98.2 F Temp Source Oral Pulse Oximetry (%) 97 Oxygen Delivery Method Room Air Intake Visit Reasons: EP-sob, cough Intake Note: Patient here for SOB, cough that has been present for a few weeks on and off. Patient Tobacco Use Status: Former Tobacco user Allergies No Known Allergies Allergy (Verified 08/26/24 10:36) Do you need a note to return to daycare/school/sports/work: No HPI HPI Comments History of Present Illness Details This is a 43-year-old female with past medical history significant for mild persistent asthma who presented to the walk-in clinic complaining of cough and shortness of breath. Patient states this has been ongoing for approximately 3 weeks. She reports severe seasonal allergies causing nasal congestion/rhinorrhea. Patient was seen by her primary care physician on 07/26/2024 and she was given steroids and antibiotics at that time. Patient states it is slightly helped but her symptoms returned. She reports associated wheezing. She states the cough is dry without sputum production or purulence. She denies any fevers or chills. She denies any lower extremity edema or recent travel, recent surgeries, or recent immobilization. [facility] Medical History Hypovitaminosis D Class 1 obesity with body mass index (BMI) of 33.0 to 33.9 in adult Physical exam Recurrent UTI UTI (urinary tract infection) Surgical History History of umbilical hernia repair Family History Father No problems noted. Mother No problems noted. Social History Housing: Apartment Alcohol intake: current Alcohol intake frequency: holidays/special occasions only Alcohol type: wine Patient Tobacco Use Status: Former Tobacco user e-Cigarette/Vaping Use: Never Used Second Hand Smoke Exposure: No service: No Current occupational status: unemployed Cognitive needs: No Hearing needs: No Vision needs: No Review of Systems Const All systems reviewed & are unremarkable except as noted in HPI and below Reports no additional complaints Eyes Reports no additional complaints ENT Reports no additional complaints Card Reports no additional complaints Resp Reports no additional complaints GI Reports no additional complaints Reports no additional complaints Musc Reports no additional complaints Skin/Breast Reports system reviewed and no additional complaints, except as documented Neuro Reports no additional complaints Psych Reports no additional complaints Endo Reports no additional complaints New/Lymph Reports no additional complaints Aller/Immun Reports no additional complaints Physical Exam Vital Signs: Last Vital Signs Temp 98.2 F 08/26/24 10:36 Pulse 77 08/26/24 10:36 BP 126/90 H 08/26/24 10:36 Pulse Ox 97 08/26/24 10:36 Oxygen Delivery Method Room Air 08/26/24 10:36 Const Other: Vital signs reviewed. Constitutional: Non-toxic appearing. No acute distress. Well-developed and well-nourished. HEENT: Normocephalic and atraumatic. Skin: Warm and dry. No rashes or lesions noted. Neck: Full and painless range of motion. No cervical lymphadenopathy. Cardio: Regular rate and rhythm. No murmurs, gallops, or rubs. No lower extremity edema. No JVD. Pulmonary: No respiratory distress. No accessory muscle usage. Patient has end inspiratory and end expiratory wheezing throughout both lungs bilaterally. Gastrointestinal: Soft, nontender, and nondistended in all 4 quadrants. Musculoskeletal: Normal range of motion in joints throughout the body. No deformity or other signs of injury. Neuro: Alert and oriented x4. Cranial nerves 2-12 grossly intact. No focal deficits appreciated. Psych: Normal mood and affect. Assessment & Plan Assessment & Plan (1) Acute asthmatic bronchitis: Code(s): J45.909 - Unspecified asthma, uncomplicated Plan: This is a 42 old female who presented to the walk-in clinic complaining of cough and shortness of breath. She has a history of mild persistent asthma. She has been utilizing her albuterol inhaler 4 times daily without relief. On physical examination, she has end inspiratory and end-expiratory wheezing. Patient likely has acute asthmatic bronchitis in the setting of viral URI/bronchitis versus allergies. Patient was given an albuterol nebulizer treatment in the office with improvement in her symptoms and wheezing. She is maintaining her oxygen saturations on room air and she is in no acute respiratory distress. Patient sent home on a prednisone taper. Hold off on antibiotics given no sputum production/purulence and no fevers. She was advised to follow-up here or proceed to the emergency room if she were to develop worsening shortness of breath, worsening cough with sputum production/purulence, or fever/chills. Patient verbalized understanding and is agreeable with the plan. Orders: Orders SARS-CoV2/FLU/RSV Today J06.9 - Acute upper respiratory infection, unspecified AMB Nebulizer Treatment Today J45.909 - Unspecified asthma, uncomplicated Medications: New prednisone Take 4 tablets daily x 3 days followed by 3 tablets daily x 3 days followed by 2 tablets daily x2 days followed by 1 tablet daily x2 days. 10 mg PO DIRECTED 26 tabs 0RF albuterol sulfate 2.5 mg (3 mL) inhalation ONCE 3 mL 0RF J45.909 - Unspecified asthma, uncomplicated Coding Level of Care Code Est Pt Level 3 (47049) Diagnoses Acute asthmatic bronchitis J45.909
[2024-08-26 10:36] VITALS: BP 126/90; PULSE 77; TEMP 36.8; O2SAT 97
== END 2024-08-26 11:39 | disposition home or self-care (01) ==
PROVIDERS: PCP Internal Medicine; Visit Provider Physician Assistant Medical
DX: J45.909 Unspecified asthma, uncomplicated (principal)

== ENCOUNTER 2024-08-26 09:48 | Outpatient (REF) | payer OTHER, SELFPAY ==
[2024-08-26 13:57] LABS: Influenza A PCR NEGATIVE (Negative); Influenza B PCR NEGATIVE (Negative); Resp Syncy Virus RNA Qual PCR NEGATIVE (Negative); SARS COV2 PCR INHOUSE NEGATIVE (Negative)
== END 2024-08-26 09:49 | disposition home or self-care (01) ==
LOC: HO.LAB 09:48
PROVIDERS: PCP Internal Medicine; Visit Provider Physician Assistant Medical
DX: J45.909 Unspecified asthma, uncomplicated (principal); J06.9 Acute upper respiratory infection, unspecified
CPT/HCPCS: 0241U; 99212

== ENCOUNTER 2025-01-17 14:03 | Outpatient (AMB) | payer OTHER, SELFPAY ==
--- NOTE | 2025-01-17 14:04 | A.OFFVIS_ITS ---
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 Butter Maker Required: No Butter Maker Services: Butter Maker Present Information Interpreted: clinical only Bottling Equipment Sales Representative: Bottling Equipment Sales Representative Present Allergies No Known Allergies Allergy (Verified 01/17/25 14:11) Medication List - Last Reconciled 01/17/25 by Ros Preciado CNM albuterol sulfate 90 mcg/actuation (Ventolin HFA) 1 inh inhalation QID PRN ascorbic acid (vitamin C) 1,000 mg PO DAILY 90 days bupropion HCl XL 150 mg PO QAM 90 days cetirizine (All Day Allergy (cetirizine)) 10 mg PO DAILY PRN 90 days cholecalciferol (vitamin D3) 25 mcg PO DAILY 90 days cromolyn 4% 1 drp ophthalmic (eye) QID 30 days cyanocobalamin (vitamin B-12) 1,000 mcg IM Q4W 30 days diphenhydramine HCl (Benadryl) 50 mg (2 x 25 mg) PO TID PRN famotidine (Pepcid) 20 mg PO BEDTIME fexofenadine (Allergy Relief (fexofenadine)) 180 mg PO DAILY fluticasone propionate 50 mcg/actuation (Flonase Allergy Relief) 1 spray intranasal DAILY ibuprofen 800 mg PO Q8H montelukast 10 mg PO BEDTIME 30 days pantoprazole 40 mg PO DAILY Is last menstrual period known: Yes Last menstrual period: 01/04/25 HPI HPI 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 She does not think she has ever had a mammogram. She has been feeling like it is sometimes uncomfortable when she has sex uterus is getting heavy low down. She lost weight being on Wegovy but she did not like the side effects at all and now she is just trying to keep it off by eating well she does not want to go back on it. 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 [facility] Medical History Hypovitaminosis D Class 1 obesity with body mass index (BMI) of 33.0 to 33.9 in adult Physical exam Recurrent UTI UTI (urinary tract infection) Surgical History History of umbilical hernia repair Family History Father No problems noted. Mother No problems noted. Social History Housing: Apartment Alcohol intake: current Alcohol intake frequency: holidays/special occasions only Alcohol type: wine Patient Tobacco Use Status: Former Tobacco user e-Cigarette/Vaping Use: Never Used Second Hand Smoke Exposure: No service: No Current occupational status: unemployed Cognitive needs: No Hearing needs: No Vision needs: No Female Reproductive History Menstrual Age of Menarche: 14 Duration of menses: other Date of last menstrual period: 01/04/25 control method: other (vasectomy) Total pregnancies: 5 Full term: 5 Date of last pap smear: 06/25/23 (negative) Physical Exam Vital Signs: Last Vital Signs BP 110/62 01/17/25 14:09 BMI result Body Mass Index 28.7 Const General: healthy appearing, comfortable, no acute distress, well developed and alert Nutritional Appearance: average body habitus Orientation/consciousness: patient oriented x3 Limitations: no limitations HEENT Head: Yes normocephalic Neck Neck: Yes normal visual inspection Chest Chest palpation & inspection: normal inspection of the chest Breast/axilla inspection: normal inspection of the breasts and normal inspection of the axillae Breast/axilla palpation: normal palpation of the breasts and normal palpation of the axillae Resp Effort & Inspection: normal respiratory effort GI Inspection: Yes normal to inspection, No Abdominal wall edema and No distended Palpation (GI): Soft to palpation and nontender Other: External exam within normal limits vagina is pink and moist cervix is pink moist shiny smooth mucus indicative of recent ovulation and healthy uterus small midposition mobile nontender adnexa nontender not enlarged. No organomegaly. Patient has muscle tone and uterine elevation checked with vaginal exam and no uterine descensus appreciated at all. Good tone with Kegel as well. General: Yes bladder normal to palpation External Female Exam: normal external appearance and normal appearance of the urethra Speculum Exam - Vagina: normal appearance of the vagina, normal palpation and normal vaginal discharge Speculum Exam - Cervix: normal appearance of the cervix, normal palpation and nontender Bimanual exam- vagina & uterus: normal bimanual exam, normal palpation, uterine size normal, bladder normal to palpation, consistency normal, normal palpation, uterine mobility normal, uterine shape normal, No Cervical tenderness present, non-tender and no cervical motion tenderness Bimanual Exam- Adnexa, other: normal adnexae, no masses, normal and No adnexal tenderness Neuro General: patient oriented x3 Assessment & Plan Assessment & Plan (1) Screening for cervical cancer: Comment: 06/24/2023 Pap equals negative with negative HPV. Code(s): Z12.4 - Encounter for screening for malignant neoplasm of cervix Category: Medical (2) Class 1 obesity with body mass index (BMI) of 33.0 to 33.9 in adult: Code(s): E66.9 - Obesity, unspecified; Z68.33 - Body mass index [BMI] 33.0-33.9, adult Category: Medical (3) Menorrhagia with regular cycle: Code(s): N92.0 - Excessive and frequent menstruation with regular cycle Category: Medical (4) Dysmenorrhea, unspecified: Code(s): N94.6 - Dysmenorrhea, unspecified Category: Medical (5) Breast cancer screening: Code(s): Z12.39 - Encounter for other screening for malignant neoplasm of breast Category: Medical (6) Well woman exam with routine gynecological exam: Code(s): Z01.419 - Encounter for gynecological examination (general) (routine) without abnormal findings Category: Medical Plan Reviewed everything HPI and physical exam findings as well I do not find that her uterus is enlarged or that there is any pathology we will get an ultrasound to assess for possible small fibroids or something that could explain periods having gotten heavier crampy and even a small fibroid might feel heavier and lower in her pelvis and contribute to her symptoms. We will have a visit follow-up in about 3 months to assess what is found. In addition she wants control pills I discussed that normally not start someone in her age on combination OCPs but we will try progestin only OCPs to see if they make a difference with her menses she is not interested a Mirena IU S at this time. In addition I am ordering screening mammogram for her. She will be seeing her primary care provider next month and will be getting lots of blood work, and discussed that that will probably include CBC to check for anemia. Reviewed how to take the OCPs I recommend she start them with her next menses beginning she can take that she is taking. Timeframe/Date Comment Mammogram Pelvic ultrasound Follow-up in 3 months after the ultrasound and for OCP check Orders: Orders MM tomosynthesis screening BI Today Z12.31 - Encounter for screening mammogram for malignant neoplasm of breast, Z12.39 - Encounter for other screening for malignant neoplasm of breast US pelvic and transvaginal Today N92.0 - Excessive and frequent menstruation with regular cycle, N94.6 - Dysmenorrhea, unspecified, Z01.419 - Encounter for gynecological examination (general) (routine) without abnormal findings Medications: New norethindrone (contraceptive) Start at beginning of the next period. 0.35 mg PO DAILY 84 tabs 3RF Coding Level of Care Code Est Pt Prev Care 40-64y(83574) Diagnoses Screening for cervical cancer Z12.4 Class 1 obesity with body mass index (BMI) of 33.0 to 33.9 in adult E66.9; Z68.33 Menorrhagia with regular cycle N92.0 Dysmenorrhea, unspecified N94.6 Breast cancer screening Z12.39 Well woman exam with routine gynecological exam Z01.419
[2025-01-17 14:09] VITALS: BP 110/62; BMI 28.7
== END 2025-01-17 15:37 | disposition home or self-care (01) ==
PROVIDERS: PCP Internal Medicine; Visit Provider Advanced Practice Midwife
DX: Z01.419 Encounter for gynecological examination (general) (routine) without abnormal findings (principal); N92.0 Excessive and frequent menstruation with regular cycle; N94.6 Dysmenorrhea, unspecified; E66.9 Obesity, unspecified; Z68.33 Body mass index [BMI] 33.0-33.9, adult
CPT/HCPCS: 99396; 99459

== ENCOUNTER 2025-01-17 14:03 | Outpatient (REF) | payer OTHER, SELFPAY ==
[2025-01-18 02:38] LABS: CT PCR NOT DETECTED (Not Detect.); NG PCR NOT DETECTED (Not Detect.)
[2025-01-18 11:16] LABS: Bacterial Vaginosis PCR POSITIVE (Negative); Candida Group PCR NOT DETECTED (Not Detect); Candida glab krusei PCR NOT DETECTED (Not Detect); Trichomonas vaginalis PCR NOT DETECTED (Not Detect)
== END 2025-01-17 14:04 | disposition home or self-care (01) ==
LOC: HO.LAB 14:03
PROVIDERS: PCP Internal Medicine; Visit Provider Advanced Practice Midwife
DX: Z01.419 Encounter for gynecological examination (general) (routine) without abnormal findings (principal); N89.8 Other specified noninflammatory disorders of vagina; Z20.2 Contact with and (suspected) exposure to infections with a predominantly sexual mode of transmission
CPT/HCPCS: 81515; 87491; 87591; 99396; 99459

== ENCOUNTER 2025-02-03 13:25 | Outpatient (REF) | payer OTHER, SELFPAY ==
--- NOTE | ~2025-02-03 | US_ITS ---
CLINICAL HISTORY: N92.0 - Excessive and frequent menstruation with regular cycle Ultrasound pelvis transabdominal and transvaginal. COMPARISON: None Technique: Real time sonographic imaging, including color-flow imaging, was performed by the inspector screen printing. Multiple telephone services sales representative static images were saved for review. FINDINGS: Anteverted uterus appears normal and measures 10.5 x 5.1 x 6.6 cm. No uterine fibroids identified. Endometrium: 7 mm, normal. Nabothian cysts present. Right ovary appears normal and measures 3.0 x 2.3 x 2.1 cm. Normal color Doppler. No right adnexal mass identified. Normal appearing physiologic follicles/cysts. Left ovary appears normal and measures 3.1 x 1.8 x 2.0 cm. Normal color Doppler. No left adnexal mass identified. Normal appearing physiologic follicles/cysts. No free fluid identified in the pelvic cul-de-sac. IMPRESSION: 1. No cause for patient's symptoms identified. No evidence of ovarian torsion. This document has been electronically signed by: Louis Maurice MD on 02/06/2025 14:49:18
== END 2025-02-03 13:26 | disposition home or self-care (01) ==
LOC: HO.US 13:25
PROVIDERS: PCP Internal Medicine; Visit Provider Advanced Practice Midwife
DX: N94.6 Dysmenorrhea, unspecified (principal); N92.0 Excessive and frequent menstruation with regular cycle
CPT/HCPCS: 76830; 76856

== ENCOUNTER → 2025-02-03 13:26 | Outpatient (BNV) | payer OTHER, SELFPAY | PROVIDERS: PCP Internal Medicine; Visit Provider Radiology Diagnostic Radiology | DX: N92.0 Excessive and frequent menstruation with regular cycle (principal) | CPT/HCPCS: 76830; 76856 ==

== ENCOUNTER 2025-03-23 10:29 | Outpatient (AMB) | payer OTHER, SELFPAY ==
--- NOTE | 2025-03-23 10:47 | A.OFFPC_ITS ---
Vital Signs 03/23/25 10:49 Height 5 ft 3 in Weight 168 lb BMI 29.8 BP 118/70 Blood Pressure Location Lt brachial Position Sitting Intake Visit Reasons: PE Intake Note: Patient here for a physical exam Boat Puller Required: No Accompanied by: Self / Same As Patient Allergies No Known Allergies Allergy (Verified 03/23/25 10:58) Medication List - Last Reconciled 03/23/25 by Catherine Schmitt MD albuterol sulfate 90 mcg/actuation (Ventolin HFA) 1 inh inhalation QID PRN ascorbic acid (vitamin C) 1,000 mg PO DAILY 90 days bupropion HCl XL 150 mg PO QAM 90 days cetirizine (All Day Allergy (cetirizine)) 10 mg PO DAILY PRN 90 days cholecalciferol (vitamin D3) 25 mcg PO DAILY 90 days cromolyn 4% 1 drp ophthalmic (eye) QID 30 days cyanocobalamin (vitamin B-12) 1,000 mcg IM Q4W 30 days diphenhydramine HCl (Benadryl) 50 mg (2 x 25 mg) PO TID PRN famotidine (Pepcid) 20 mg PO BEDTIME fexofenadine (Allergy Relief (fexofenadine)) 180 mg PO DAILY fluticasone propionate 50 mcg/actuation (Flonase Allergy Relief) 1 spray intranasal DAILY ibuprofen 800 mg PO Q8H metronidazole 0.75%(37.5mg/5gram) 1 appful vaginal BID 5 days montelukast 10 mg PO BEDTIME 30 days norethindrone (contraceptive) 0.35 mg PO DAILY pantoprazole 40 mg PO DAILY Tobacco use date assessed: 03/23/25 Dental Screening Dental Screen Date: 03/23/25 Did you have a dental visit in the last 12 months?: No Did you have a dental problem in the last 6 months where you did not have access to dental care?: No Was dental information given to patient?: Patient has dentist HPI HPI Comments History of Present Illness Details The patient is a 44-year-old female presenting for her physical exam. She has asthma, allergic rhinitis, GERD, depression, and weight issues. Her asthma is currently managed with a rescue inhaler, and her allergic rhinitis is treated with cetirizine. For GERD, the patient reports effective symptom control through pantoprazole and Pepcid, though she experiences occasional heartburn. Mild depression is noted, with a focus on addressing through vitamin supplementation. Weight management remains a concern, with her recent weight loss recorded but expressing further desired reduction. Complains of left breast pain at 10:00 and submandibular lymphadenopathy. - Asthma management with rescue inhaler and control of allergic triggers. - Regular use of cetirizine for allergic rhinitis. - Management of GERD with pantoprazole a nd Pepcid. - Consideration for lifestyle modificati ons and weight management. - Monitoring mental health and depressio n alongside vitamin supplementation. [facility] Medical History (Updated 03/23/25 @ 11:12 by Catherine Schmitt MD) Hypovitaminosis D Class 1 obesity with body mass index (BMI) of 33.0 to 33.9 in adult Physical exam Recurrent UTI UTI (urinary tract infection) Surgical History History of umbilical hernia repair Family History Father No problems noted. Mother No problems noted. Social History Housing: Apartment Alcohol intake: current Alcohol intake frequency: holidays/special occasions only Alcohol type: wine Patient Tobacco Use Status: Former Tobacco user e-Cigarette/Vaping Use: Never Used Second Hand Smoke Exposure: No service: No Current occupational status: unemployed Cognitive needs: No Hearing needs: No Vision needs: No Female Reproductive History Menstrual Age of Menarche: 14 Questionnaire PHQ-9 Over the last 2 weeks, how often have you been bothered by any of the following problems? 1. Little interest or pleasure in doing things: not at all 2. Feeling down, depressed, or hopeless: nearly every day 3. Trouble falling or staying asleep, or sleeping too much: more than half the days 4. Feeling tired or having little energy: more than half the days 5. Poor appetite or overeating: more than half the days 6. Feeling bad about yourself - or that you are a failure or have let yourself or your family down: more than half the days 7. Trouble concentrating on things, such as reading the newspaper or watching television: several days 8. Moving or speaking so slowly that other people could have noticed. Or the opposite - being so fidgety or restless that you have been moving around a lot more than usual: not at all 9. Thoughts that you would be better off or of hurting yourself in some way: not at all Total score: 12 Depression Screening Interpretation: Positive Depression Screening Follow-up: Existing condition, In treatment and Follow-up Visit Requested Depression Screening Done: Yes 70762 - PHQ-9 Billing: Yes Source: Developed by Drs. Gasper Juan, Bernice Michel, Enrique Dinero and colleagues, with an educational marta from [employer]. Thrive Questionnaire Date Thrive assessed: 03/21/25 I am a: Patient What is your living situation today?: I have a steady place to live Within the past 12 months, did the food you bought not last and you didn't have the money to get more?: Never true Within the past 12 months, did you worry whether your food would run out before you got money to buy more?: Never true Do you have trouble paying for medicines?: No Do you have trouble getting transportation to medical appointments?: No Do you have trouble paying your heating and electricity bill?: No Do you have trouble taking care of your child, family member or friend?: No Do you have trouble with day-to-day activities such as bathing, preparing meals, shopping, managing finances, etc.?: No Are you currently unemployed and looking for a job?: Yes Are you interested in more education?: Yes Please select the resources that you would like help with: None Currently or been in a relationship where the following occur: No concerns repor dangelo THRIVE Score: 0 AUDIT C Alcohol Use Questionnaire (AUDIT-C) 1. How often do you have a drink containing alcohol?: Monthly or less 2. How many drinks containing alcohol do you have on a typical day when you are drinking?: 1 or 2 3. How often do you have six or more drinks on one occasion?: Never Total Score: 1 Score Reviewed/Action Taken: No KVNG-7 AMB Questionnaire KVNG-7 Date KVNG - 7 assessed: 03/23/25 Feeling nervous, anxious, or on edge: 1 = Several days Not being able to stop or control worryin = Nearly every day Worrying too much about different things: 3 = Nearly every day Trouble relaxin = Nearly every day Being so restless that it is hard to sit still: 2 = More than half the days Becoming easily annoyed or irritable: 3 = Nearly every day Feeling afraid as if something awful might happen: 3 = Nearly every day Total KVNG-7 score (0-4 normal; 5-9 mild; 10-14 moderate; 15-21 severe): 18 Source: Developed by Drs. Gasper Juan, Bernice Michel, Enrique Dinero and colleagues, with an educational marta from [employer]. KVNG-7 Assessment Billing KVNG-7 Assessment Tool: KVNG-7 Assessment 09291 Review of Systems Const All systems reviewed & are unremarkable except as noted in HPI and below Card Denies chest pain at rest, Denies chest pain with activity, Denies edema, Denies irregular heart rhythm, Denies claudication, Denies dyspnea, Denies dyspnea on exertion, Denies orthopnea, Denies paroxysmal nocturnal dyspnea and Denies slow heart rate Resp Denies cough, Denies dyspnea and Denies dyspnea on exertion GI Denies abdominal pain, Denies change in bowel habits, Denies excessive flatus, Denies nausea and Denies vomiting Denies urinary incontinence, Denies urinary hesitancy and Denies urinary urgency Musc Denies abnormal gait, Denies atrophy, Denies deformity and Denies limited range of motion Skin/Breast Denies bleeding lesions, Denies changing lesions and Denies rash Neuro Denies abnormal gait and Denies lack of coordination Physical exam (Primary Care) Vital Signs: Last Vital Signs BP 118/70 03/23/25 10:49 BMI result Body Mass Index 29.8 Tobacco/Smoking Status: Tobacco use Status Tobacco use date assessed 03/23/25 03/23/25 10:55 Patient Tobacco Use Status Former Tobacco user 03/23/25 10:55 e-Cigarette/Vaping Use Never Used 03/23/25 10:55 PHQ-9: PHQ-9 Score PHQ-9: Total score 12 03/23/25 10:55 Depression Screening Interpretation: Positive Depression Screening Follow-up: Existing condition, In treatment and Follow-up Visit Requested Thrive Assessment: Date of Thrive Assessment Date Thrive assessed 03/21/25 03/23/25 10:55 Currently or been in a relationship where the following occur: No concerns reported [facility] Head: Yes normal to inspection, Yes normocephalic and Yes atraumatic Ears: external ears normal Eyes General: appearance normal, both eyes and all related structures Eyelids: Yes eyelids normal Conjunctivae: conjunctivae normal Neck Neck: Yes lymphadenopathy and Yes submandibular swelling Resp Effort & Inspection: normal respiratory effort Auscultation: clear to auscultation bilaterally Cardio Jugular venous distension: no JVD Rate: regular rate Rhythm: regular rhythm Heart sounds: S1 normal heart sound present and S2 normal heart sound present GI Inspection: Yes normal to inspection Palpation (GI): Soft to palpation and nontender Auscultation: normal bowel sounds Skin General skin exam: no rashes or lesions noted Neuro General: no focal motor deficits Extrem General: Yes full ROM Psych Appearance: grossly normal Coding Level of Care Code Est Pt Level 3 (54465) Est Pt Prev Care 40-64y(34691) Diagnoses Physical exam Z00.00 Breast pain, left N64.4 Submandibular lymphadenopathy R59.0 Mild major depression F32.0 Additional Codes PHQ-9 - 13663 - PHQ-9 Billing: Yes ([id number]) KVNG-7 Assessment Billing - KVNG-7 Assessment Tool: KVNG-7 Assessment 75497 ([id number]) Time Spent (min) 33 Assessment & Plan Assessment & Plan (1) Physical exam: Code(s): Z00.00 - Encounter for general adult medical examination without abnormal findings Category: Medical (2) Breast pain, left: Code(s): N64.4 - Mastodynia Category: Medical (3) Submandibular lymphadenopathy: Code(s): R59.0 - Localized enlarged lymph nodes Category: Medical (4) Mild major depression: Code(s): F32.0 - Major depressive disorder, single episode, mild Category: Medical Plan A holistic plan includes sustaining asthma management with a rescue inhaler and addressing allergic triggers. Alleviating allergic symptoms via cetirizine and managing GERD through pantoprazole and Pepcid form part of the treatment regimen. Mild depression may be aided through vitamin supplements. Continued focus on weight loss is important, with recommendations for lifestyle and diet adjustments. Blood work will evaluate dosing requirements, enhance therapeutic outcomes, and prevent potential medication complications. Patient was informed and verbally consented to the use of an ambient scribe for clinic note documentation during this visit. I discussed with the patient the ongoing management strategy for asthma, allergic rhinitis, GERD, mild depression, and weight management. We thoroughly explored the benefits of her current medications, such as cetirizine and pantoprazole, emphasizing adherence for optimal control. We reviewed the possibility of integrating vitamin supplements to support her mental health. Moreover, I provided guidance on weight management, highlighting the importance of sustained dietary changes and regular physical activity. The necessity of blood work was emphasized to determine if adjustments in current treatments are warranted. Consent for current management strategies was obtained and further follow-up was arranged. Orders: Orders Vitamin D 25-OH Total Today E55.9 - Vitamin D deficiency, unspecified Comprehensive [place]. Panel Fast Today J30.1 - Allergic rhinitis due to pollen US soft tiss head and/or neck Today R59.0 - Localized enlarged lymph nodes MM diagnostic mammo BI Today N64.4 - Mastodynia US breast LT limited Today N64.4 - Mastodynia Complete Blood Count Auto Diff Today D64.9 - Anemia, unspecified IRON PROFILE Today D64.9 - Anemia, unspecified Vitamin B12 and Folate Today E53.8 - Deficiency of other specified B group vitamins Lipid Panel Today E78.5 - Hyperlipidemia, unspecified Patient Instructions: - Continue using your rescue inhaler as needed for asthma. - Take cetirizine for allergies consistently. - Use pantoprazole and Pepcid for heartburn as directed. - Consider vitamin supplements to support mental health. - Focus on balanced nutrition and regular exercise to aid weight loss. - Follow up with me to re-evaluate your progress and treatment plan.
[2025-03-23 10:49] VITALS: BP 118/70; BMI 29.8
== END 2025-03-23 11:11 | disposition home or self-care (01) ==
LOC: HO.HMCH 10:29
PROVIDERS: PCP Internal Medicine; Visit Provider Internal Medicine
DX: Z00.00 Encounter for general adult medical examination without abnormal findings (principal); N64.4 Mastodynia; R59.0 Localized enlarged lymph nodes; F32.0 Major depressive disorder, single episode, mild

== ENCOUNTER 2025-03-23 11:24 | Outpatient (REF) | payer OTHER, SELFPAY ==
[2025-03-23 11:39] LABS: MANUAL DIFF FLAG NO
[2025-03-23 12:05] LABS: Basophils Percent Auto 0.4 % (0-2); Eosinophils Absolute Auto 0.5 X10*3/uL (0.0-0.4); Eosinophils Percent Auto 6.2 % (0-4); Hematocrit 38.6 % (37.0-47.0); Hemoglobin 12.5 g/dl (12.0-16.0); Imm Gran Abs Auto 0.01 X10*3/uL (0.00-0.03); Imm Gran Pct Auto 0.1 % (0.0-0.4); Lymphocytes Absolute Auto 2.5 X10*3/uL (1.2-4.9); Lymphocytes Percent Auto 32.1 % (20-40); Mean Corpuscular HGB Conc 32.4 g/dl (31.0-35.0); Mean Corpuscular Hemoglobin 27.5 pg (27.0-33.0); Mean Corpuscular Volume 84.8 fL (80.0-98.0); Mean Platelet Volume 10.7 fL (9.4-12.3); Monocytes Absolute Auto 0.5 X10*3/uL (0.1-1.2); Monocytes Percent Auto 6.2 % (2-11); Neutrophils Absolute Auto 4.3 x10*3/uL (2.0-8.3); Platelet Count 354 X10*3/uL (160-400); Red Blood Count 4.55 X10*6/uL (4.20-5.50); Red Cell Distribution Width 14.1 % (11.0-16.0); White Blood Count 7.8 X10*3/uL (4.8-10.8)
[2025-03-23 12:44] LABS: Alanine Aminotransferase 14 U/L (0-31); Albumin Level 4.2 g/dL (3.5-5.0); Alkaline Phosphatase 51 U/L (39-117); Anion Gap 8 (12-20); Aspartate Amino Transferase 19 U/L (5-31); Bilirubin Total 0.4 mg/dL (0.0-1.0); Blood Urea Nitrogen 8 mg/dL (9-16); Calcium 8.8 mg/dL (8.4-10.2); Carbon Dioxide 26 mmol/L (22-29); Chloride 107 mmol/L (96-108); Cholesterol 198 mg/dL (<200); Estimated Glomerular Filt Rate > 60; Glucose Fasting 87 mg/dL (60-99); HDL Cholesterol 54 mg/dL (>40); Iron 31 mcg/dL (30-160); LDL Cholesterol Calculated 123 mg/dL (<100); Percent Iron Saturation 8 % (15-50); Potassium 3.9 mmol/L (3.3-5.1); Sodium 137 mmol/L (135-145); Total Iron Binding Capacity 408 mcg/dL (228-428); Total Protein 7.7 g/dL (6.5-8.0); Triglycerides 106 mg/dL (<150); Unsaturated Iron Binding 377 ug/dL
[2025-03-23 13:00] LABS: Vitamin D 25-OH Total 16.2 ng/mL (>30)
[2025-03-23 13:09] LABS: Folate 7.6 ng/mL (> or = 4.0); Vitamin B12 253 pg/mL (200-900)
== END 2025-03-23 11:25 | disposition home or self-care (01) ==
LOC: HO.MAMMO 11:24
PROVIDERS: PCP Internal Medicine; Visit Provider Internal Medicine
DX: Z00.00 Encounter for general adult medical examination without abnormal findings (principal); N64.4 Mastodynia; R59.0 Localized enlarged lymph nodes; F32.0 Major depressive disorder, single episode, mild; E55.9 Vitamin D deficiency, unspecified; J30.1 Allergic rhinitis due to pollen; D64.9 Anemia, unspecified; E78.5 Hyperlipidemia, unspecified; E53.8 Deficiency of other specified B group vitamins
CPT/HCPCS: 36415; 80053; 80061; 82306; 82607; 82746; 83540; 85025; 96127; 99212; 99396

== ENCOUNTER 2025-04-21 09:08 | Outpatient (AMB) | payer OTHER, SELFPAY ==
--- NOTE | 2025-04-21 09:21 | MHC.OFFVIS ---
Vital Signs 04/21/25 09:23 Height 5 ft 3 in Weight 168 lb BMI 29.8 BP 102/82 Intake Visit Reasons: 3 MTh. 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 Required: No Information Interpreted: non-clinical & clinical Accompanied by: Self / Same As Patient Allergies No Known Allergies Allergy (Verified 04/21/25 09:25) Medication List - Last Reconciled 04/21/25 by Ros Preciado CNM albuterol sulfate 90 mcg/actuation (Ventolin HFA) 1 inh inhalation QID PRN ascorbic acid (vitamin C) 1,000 mg PO DAILY 90 days bupropion HCl XL 150 mg PO QAM 90 days cetirizine (All Day Allergy (cetirizine)) 10 mg PO DAILY PRN 90 days cholecalciferol (vitamin D3) 25 mcg PO DAILY 90 days cromolyn 4% 1 drp ophthalmic (eye) QID 30 days cyanocobalamin (vitamin B-12) 1,000 mcg IM Q4W 30 days diphenhydramine HCl (Benadryl) 50 mg (2 x 25 mg) PO TID PRN famotidine (Pepcid) 20 mg PO BEDTIME fexofenadine (Allergy Relief (fexofenadine)) 180 mg PO DAILY fluticasone propionate 50 mcg/actuation (Flonase Allergy Relief) 1 spray intranasal DAILY ibuprofen 800 mg PO Q8H montelukast 10 mg PO BEDTIME 30 days norethindrone (contraceptive) 0.35 mg PO DAILY pantoprazole 40 mg PO DAILY Is last menstrual period known: Yes Last menstrual period: 03/24/25 HPI HPI 3 MTh. Pill check & U/S follow up: Details: Patient is here for control pill follow-up which she is taking to help manage her periods and an ultrasound follow-up which was done to rule out any pathology and also she has concerns about bacterial vaginosis that is recurring but really she wants to get checked for STIs. she has terrible allergies. She is allergic to everything and she has been tested for everything but she has to pit bull dogs and they are her baby's age 3 and 5 and she will not get rid of them. She feels like the periods are just as bad but her sister told her to give it more time. I talked to her about a an IUD and she said that she had it before and it fell out and she got . I reminded her that it does not work if it falls out and then she remembered that the IUD actually worked very well for 5 years it was a NuvaRing that fell out and was on the floor and she got . [facility] Medical History Hypovitaminosis D Class 1 obesity with body mass index (BMI) of 33.0 to 33.9 in adult Physical exam Recurrent UTI UTI (urinary tract infection) Surgical History (Reviewed 04/21/25 @ 09: by Jackelyn Mccoy MA) History of umbilical hernia repair Family History (Reviewed 04/21/25 @ 09: by Jackelyn Mccoy MA) Father No problems noted. Mother No problems noted. Social History Housing: Apartment Alcohol intake: current Alcohol intake frequency: holidays/special occasions only Alcohol type: wine Patient Tobacco Use Status: Former Tobacco user e-Cigarette/Vaping Use: Never Used Second Hand Smoke Exposure: No service: No Current occupational status: unemployed Cognitive needs: No Hearing needs: No Vision needs: No Female Reproductive History Menstrual Age of Menarche: 14 Date of last menstrual period: 03/24/25 control method: pills Physical Exam Vital Signs: Last Vital Signs BP 102/82 04/21/25 09:23 BMI result Body Mass Index 29.8 External Female Exam: normal external appearance and normal appearance of the urethra Speculum Exam - Vagina: normal appearance of the vagina and normal vaginal discharge Speculum Exam - Cervix: normal appearance of the cervix and Cervical os closed Results Reviewed Results Reviewed: atient: Jacinta Verma MR#: [id number] : 1980 Acct:[id number] Age/Sex: 44 / F ADM Date: 02/03/25 Loc: HO.US Attending Dr: Ros Preciado CNM Ordering Physician: Ros Preciado CNM Date of Service: 02/03/25 Procedure(s): US pelvic and transvaginal Accession Number(s): [id number] cc: Ros Preciado CNM; Catherine Cuenca MD~ CLINICAL HISTORY: N92.0 - Excessive and frequent menstruation with regular cycle Ultrasound pelvis transabdominal and transvaginal. COMPARISON: None Technique: Real time sonographic imaging, including color-flow imaging, was performed by the telephone quotation clerk. Multiple medical billing representative static images were saved for review. FINDINGS: Anteverted uterus appears normal and measures 10.5 x 5.1 x 6.6 cm. No uterine fibroids identified. Endometrium: 7 mm, normal. Nabothian cysts present. Right ovary appears normal and measures 3.0 x 2.3 x 2.1 cm. Normal color Doppler. No right adnexal mass identified. Normal appearing physiologic follicles/cysts. Left ovary appears normal and measures 3.1 x 1.8 x 2.0 cm. Normal color Doppler. No left adnexal mass identified. Normal appearing physiologic follicles/cysts. No free fluid identified in the pelvic cul-de-sac. IMPRESSION: 1. No cause for patient's symptoms identified. No evidence of ovarian torsion. This document has been electronically signed by: Louis Maurice MD on 02/06/2025 14:49:18 Dictated By: Louis Maurice MD Signed By: <Electronically signed by Louis Maurice MD in OV> 02/06/25 1450 DD/ 1449 TD/TT: 02/06/25 1449 pap of 06/21= neg w neg hpv. Assessment & Plan Assessment & Plan (1) Menorrhagia with regular cycle: Code(s): N92.0 - Excessive and frequent menstruation with regular cycle Category: Medical (2) Dysmenorrhea, unspecified: Code(s): N94.6 - Dysmenorrhea, unspecified Category: Medical (3) Allergic rhinitis: Code(s): J30.9 - Allergic rhinitis, unspecified Category: Medical Qualifiers: Allergic rhinitis trigger: animal hair and dander Qualified Code(s): J30.81 - Allergic rhinitis due to animal (cat) (dog) hair and dander (4) Encounter for screening examination for sexually transmitted disease: Code(s): Z11.3 - Encounter for screening for infections with a predominantly sexual mode of transmission Category: Medical Plan Patient is here for control pill follow-up which she is taking to help manage her periods and an ultrasound follow-up which was done to rule out any pathology and also she has concerns about bacterial vaginosis that is recurring but really she wants to get checked for STIs. she has terrible allergies. She is allergic to everything and she has been tested for everything but she has to pit bull dogs and they are her baby's age 3 and 5 and she will not get rid of them. She feels like the periods are just as bad but her sister told her to give it more time. I talked to her about a an IUD and she said that she had it before and it fell out and she got . I reminded her that it does not work if it falls out and then she remembered that the IUD actually worked very well for 5 years it was a NuvaRing that fell out and was on the floor and she got . Testing done at her request for gonorrhea chlamydia bacterial vaginosis and yeast she complains of itching but then again she is itching all over her body she is congested her lips are dry her eyes are blurry she has got red rash she areas all over her from her exposure to her dogs who she sleeps with. She takes allergy pills and sprays and has an air purifier and a [place] her but she is still very much exposed. Reviewed that vaginal itching may very well represent her general allergic/atopic condition as she has itching everywhere else as well and her vagina is no different from the rest of her body in that way. Discussed the true symptoms of bacterial vaginosis. Discussed that if she does have BV showing up in the test she will be offered either the gel or the pills or she could try boric acid. Her discharge looked completely clear scant and normal. It did not, not at all appear characteristic of bacterial vaginosis. If there is an STI she will be offered treatment for that as well and I did discuss condom use as well She wants to continue on the pills for a little bit longer I discussed that if she decides that her periods and cramping is not any better at whatever point she decides then the Mirena it would be the next step when we would want to insert it with her menses. Orders: Orders CT NG by PCR Today N89.8 - Other specified noninflammatory disorders of vagina Bacterial Vaginosis Panel Today N89.8 - Other specified noninflammatory disorders of vagina Coding Level of Care Code Est Pt Level 3 (23648) Diagnoses Menorrhagia with regular cycle N92.0 Dysmenorrhea, unspecified N94.6 Allergic rhinitis due to animal hair and dander J30.81 Allergic rhinitis trigger: animal hair and dander Encounter for screening examination for sexually transmitted disease Z11.3
[2025-04-21 09:23] VITALS: BP 102/82; BMI 29.8
== END 2025-04-21 10:26 | disposition home or self-care (01) ==
LOC: HO.HWS 09:08
PROVIDERS: PCP Internal Medicine; Visit Provider Advanced Practice Midwife
DX: N92.0 Excessive and frequent menstruation with regular cycle (principal); N94.6 Dysmenorrhea, unspecified; J30.81 Allergic rhinitis due to animal (cat) (dog) hair and dander; Z11.3 Encounter for screening for infections with a predominantly sexual mode of transmission
CPT/HCPCS: 99213

== ENCOUNTER 2025-04-21 09:08 | Outpatient (REF) | payer OTHER, SELFPAY ==
[2025-04-21 16:43] LABS: Bacterial Vaginosis PCR NEGATIVE (Negative); Candida Group PCR NOT DETECTED (Not Detect); Candida glab krusei PCR NOT DETECTED (Not Detect); Trichomonas vaginalis PCR NOT DETECTED (Not Detect)
[2025-04-21 17:13] LABS: CT PCR NOT DETECTED (Not Detect.); NG PCR NOT DETECTED (Not Detect.)
== END 2025-04-21 09:09 | disposition home or self-care (01) ==
LOC: HO.LNP 09:08
PROVIDERS: PCP Internal Medicine; Visit Provider Advanced Practice Midwife
DX: N92.0 Excessive and frequent menstruation with regular cycle (principal); N94.6 Dysmenorrhea, unspecified; J30.81 Allergic rhinitis due to animal (cat) (dog) hair and dander; Z11.3 Encounter for screening for infections with a predominantly sexual mode of transmission
CPT/HCPCS: 81515; 87491; 87591; 99212

== ENCOUNTER 2025-04-28 09:16 | Outpatient (REF) | payer OTHER, SELFPAY ==
--- NOTE | ~2025-04-28 | US_ITS ---
EXAMINATION: MM DIAGNOSTIC DIGITAL BREAST TOMOSYNTHESIS, BILATERAL Left Limited ultrasound. CLINICAL INFORMATION: Left upper inner breast pain for 6 months. COMPARISON: Mammography: Baseline. TECHNIQUE: Digital breast mammography with tomosynthesis is performed in both the craniocaudal and mediolateral oblique views along with computer-aided detection (CAD). FINDINGS: There are scattered areas of fibroglandular density (ACR BI-RADS breast composition Category b). [place] marker upper inner left breast at the site of the patient's pain without underlying abnormality. There are no significant masses, abnormal calcifications, or other abnormalities. Targeted color Doppler ultrasound in the left breast scanning from 8-1 o'clock in the area the patient's pain demonstrates an incidental hypoechoic oval circumscribed solid mass versus complicated cyst at 2:00 5 cm from nipple measuring 8 x 7 x 5 mm otherwise there is normal fibronodular breast tissue. Results are provided to the patient at time of visit by the technologist. US/US breast LT limited mamm only IMPRESSION: Right: Negative. Left: Hypoechoic oval circumscribed solid mass at 10:00 5 cm from the nipple otherwise no mammographic or sonographic abnormality to account for the patient's left breast pain. The patient was offered follow-up versus ultrasound-guided core needle biopsy and agreed to biopsy at this time. The findings and recommendations were discussed with the patient the procedure will be scheduled. ASSESSMENT: BI-RADS BI-RADS 4 - Suspicious finding RECOMMENDATION: Biopsy recommended This patient's information was entered into a reminder system with a target due date for their next mammogram. Electronically signed by: Alison Rivera DO 04/28/2025 02:02 PM EDT
== END 2025-04-28 09:17 | disposition home or self-care (01) ==
LOC: HO.MAMMO 09:16
PROVIDERS: PCP Internal Medicine; Visit Provider Internal Medicine
DX: N64.4 Mastodynia (principal)
CPT/HCPCS: 76642; 77062; 77066

== ENCOUNTER → 2025-04-28 09:30 | Outpatient (BNV) | payer OTHER, SELFPAY | PROVIDERS: PCP Internal Medicine; Visit Provider Internal Medicine | DX: N63.21 Unspecified lump in the left breast, upper outer quadrant (principal); R92.8 Other abnormal and inconclusive findings on diagnostic imaging of breast | CPT/HCPCS: 76642; 77062; 77066 ==

== ENCOUNTER 2025-05-02 13:09 | Outpatient (REF) | payer OTHER, SELFPAY ==
--- NOTE | ~2025-05-02 | US_ITS ---
EXAMINATION: US HEAD NECK SOFT TISSUE HISTORY: R59.0 - Localized enlarged lymph nodes COMPARISON: There are no prior studies available for comparison. FINDINGS: Sonographic examination of the upper neck was performed. Two normal-appearing subcentimeter lymph nodes are identified which demonstrate thin cortices and prominent fatty earl. US/US soft tiss head and/or neck IMPRESSION: No cervical lymphadenopathy is seen in the upper neck. Electronically signed by: Gasper Henry MD 05/02/2025 02:37 PM EDT
== END 2025-05-02 13:10 | disposition home or self-care (01) ==
LOC: HO.US 13:09
PROVIDERS: PCP Internal Medicine; Visit Provider Internal Medicine
DX: R59.0 Localized enlarged lymph nodes (principal)
CPT/HCPCS: 76536

== ENCOUNTER → 2025-05-02 13:10 | Outpatient (BNV) | payer OTHER, SELFPAY | PROVIDERS: PCP Internal Medicine; Visit Provider Radiology Diagnostic Radiology | DX: R59.0 Localized enlarged lymph nodes (principal) | CPT/HCPCS: 76536 ==

== ENCOUNTER 2025-07-01 00:24 | Emergency (ER) | payer OTHER, SELFPAY ==
[2025-07-01 00:28] VITALS: BP 129/60; PULSE 76; RESP 16; TEMP 36.8; O2SAT 98; BMI 30.6
[2025-07-01 00:57] LABS: IDNOW Serial# 58CA691E; Strep A Nucleic Acid Negative (Negative)
[2025-07-01 01:23] LABS: Resp Syncy Virus RNA Qual PCR NEGATIVE (Negative); SARS COV2 PCR INHOUSE NEGATIVE (Negative)
--- NOTE | 2025-07-01 01:33 | ED.URI ---
HPI - URI/Sore Throat General Chief Complaint: Upper Respiratory Symptoms Stated Complaint: ear pain + throat pain + headache Time Seen by Provider: 07/01/25 01:10 Source: patient Mode of arrival: ambulatory Limitations: no limitations History of Present Illness ED Provider: Dr. Krista Land HPI Narrative: patient comes to the emergency room complaining of bilateral ear discomfort, throat pain, headache, stuffy nose. Patient states it has been couple of days to 3 days with the same symptoms. Patient denies any chest pain or shortness of breath, no nausea vomiting or diarrhea, no UTI symptoms. Denies fever or chills. Related Data Previous Rx's ?Medication ?Instructions ?Recorded ascorbic acid (vitamin C) 1,000 mg 1,000 mg PO DAILY 90 days #90 tabs 06/26/22 tablet cromolyn 4 % eye drops 1 drp ophthalmic (eye) QID 30 days 03/10/23 #10 mL diphenhydramine HCl 25 mg capsule 50 mg (2 x 25 mg) PO TID PRN 03/10/23 (Benadryl) allergic reaction #30 caps fluticasone propionate 50 1 spray intranasal DAILY #9.9 mL 06/05/23 mcg/actuation nasal spray,suspension (Flonase Allergy Relief) fexofenadine 180 mg tablet 180 mg PO DAILY #14 tabs 06/20/23 (Allergy Relief (fexofenadine)) cyanocobalamin (vitamin B-12) 1,000 mcg IM Q4W 30 days #2 mL 10/24/23 1,000 mcg/mL injection solution albuterol sulfate 90 mcg/actuation 1 inh inhalation QID PRN shortness 11/17/23 aerosol inhaler (Ventolin HFA) of breath or wheezing #8.5 grams pantoprazole 40 mg tablet,delayed 40 mg PO DAILY #90 tabs 01/01/24 release ibuprofen 800 mg tablet 800 mg PO Q8H #60 tabs 04/22/24 montelukast 10 mg tablet 10 mg PO BEDTIME 30 days #30 tabs 04/26/24 cetirizine 10 mg tablet (All Day 10 mg PO DAILY PRN allergy 10/21/24 Allergy (cetirizine)) symptoms 90 days #90 tabs norethindrone (contraceptive) 0.35 0.35 mg PO DAILY #84 tabs 01/17/25 mg tablet cholecalciferol (vitamin D3) 25 25 mcg PO DAILY 90 days #90 caps 03/23/25 mcg (1,000 unit) capsule bupropion HCl 150 mg 24 hr tablet, 150 mg PO QAM 90 days #90 tabs 06/27/25 extended release famotidine 20 mg tablet (Pepcid) 20 mg PO BEDTIME #30 tabs 06/27/25 doxylamin 12.5 mg-PSE 10 mg-DM 20 1 packet PO Q4H PRN flu symptoms 07/01/25 mg-acetaminophen 650 mg oral pwdr #6 ea pk (Alla-Bucyrus Plus Cold-Flu) fluticasone propionate 50 1 spray intranasal Q12H #16 grams 07/01/25 mcg/actuation nasal spray,suspension (Children's Flonase Allergy Relief) Allergies Allergy/AdvReac Type Severity Reaction Status Date / Time No Known Allergies Allergy Verified 07/01/25 00:29 Review of Systems Review of Systems: Constitutional : No Weight loss, No Fever, No Chills, No Night Sweats, No Fatigue, No Malaise ENT/Mouth : No Hearing loss, Complaining of bilateral ear discomfort, nasal congestion, mild sore throat Eyes: No Eye Pain, No Swelling, No Redness, No Foreign Body, No Discharge, No Vision Changes Cardiovascular : No Chest Pain, No SOB, No Dyspnea on Exertion, No Orthopnea, No Edema, No Palpitations Respiratory : No Cough, No Sputum, No Wheezing, No Smoke Exposure, No Dyspnea Gastrointestinal : No Nausea, No Vomiting, No Diarrhea, No Constipation, No abdominal Pain, No Hematochezia, No Melena Genitourinary : no irregular bleeding, No Dysuria, No Urinary Frequency, No Hematuria, No Urinary Incontinence, No Urgency, No Flank Pain, No Urinary Flow Changes, No Hesitancy Musculoskeletal : No joint pain, No Myalgias, No Joint Swelling Skin : No Skin Lesions, No rash Neuro : No Weakness, No Numbness, No Paresthesias, No Loss of Consciousness, No Dizziness, No Headache Psych : No Anxiety/Panic, No Depression, No SI/HI/AH/VH, No Social Issues, Heme/Lymph: No Bruising, No Bleeding,No Lymphadenopathy Endocrine : No Polyuria, No Polydipsia, No Temperature Intolerance [facility] Past Medical History Medical History Left breast mass Hypovitaminosis D Class 1 obesity with body mass index (BMI) of 33.0 to 33.9 in adult Physical exam Recurrent UTI UTI (urinary tract infection) Surgical History History of umbilical hernia repair Family History Family History Father No problems noted. Mother No problems noted. Social History Social History Housing: Apartment Alcohol intake: current Alcohol intake frequency: holidays/special occasions only Alcohol type: wine Patient Tobacco Use Status: Former Tobacco user Smoked in Last 30 Days: No e-Cigarette/Vaping Use: Never Used Second Hand Smoke Exposure: No Use of substances other than those prescribed or required for medical reasons: No Advance Directives: No Advance Directives Information Provided: No Do you have a plan to hurt others: No Plan Patient : No service: No Current occupational status: unemployed Cognitive needs: No Hearing needs: No Vision needs: No Physical Exam Exam: Exam: Appearance: Alert. Oriented X3. No acute distress. Eyes: Pupils equal, round and reactive to light. ENT: Pharynx normal. no erythema, normal palatine tonsils, uvula at midline, no soft palate phlegmon. patient does have nasal congestion. Tympanic membranes with small amount of fluid, not infected, normal ear canals, no mastoid bone tenderness Neck: Normal inspection. Neck supple. No lymph nodes noted. No crepitus CVS: Normal heart rate and rhythm. Pulses normal. Normal S1 and S2 Respiratory: No respiratory distress. Breath sounds normal. No Wheezing. No rales Abdomen: Soft and nontender. No rigidity. No distention. Skin: Skin warm and dry. Normal skin color. Normal skin turgor. Extremities: No lower extremity edema. No Lacerations. No Rash Neuro: Oriented X 3. No motor deficit. No sensory deficit. Moving all extremities. No slurred speech. CN 2 through 12 grossly intact Psych: calm, cooperative, normal affect Vital Signs: Vital Signs: Last Vital Signs Temp 98.3 F 07/01/25 00:28 Pulse 76 07/01/25 00:28 Resp 16 07/01/25 00:28 BP 129/60 07/01/25 00:28 Pulse Ox 98 07/01/25 00:28 O2 Del Method Room Air 07/01/25 00:28 BMI result Body Mass Index 30.6 Course Course Course Narrative: patient comes to the emergency room complaining of 3 days of URI symptoms including ear pain, sore throat, headache. Serology labs pending Medical Decision Making Medical Decision Making [facility] Narrative: my interpretation labs: Influenza negative, RSV negative, COVID negative, strep negative physical exam reassuring, patient has a viral URI Differential Diagnosis Differential Diagnoses: The differential diagnosis associated with the presentation includes ( as above) Lab Data [facility] Lab Attestation statement: I reviewed the patient's lab results. Labs: Lab Results 07/01/25 Range/Units 00:41 Influenza Type A (PCR) NEGATIVE (Negative) Influenza Type B (PCR) NEGATIVE (Negative) RSV RNA Qual (PCR) NEGATIVE (Negative) SARS-CoV-2 RNA (RT-PCR) NEGATIVE (Negative) S. pyogenes GrpA BECK Negative (Negative) Discharge Plan Discharge Clinical Impression: Viral URI Patient Disposition: Home, Self-Care Instructions: Viral Syndrome (ED) Additional Instructions: Your serology test are negative for influenza, COVID, RSV and strep. Please follow-up with your primary care physician tomorrow. If you have any worsening or new symptoms, please return to the emergency room or call 911 Prescriptions: New Alla-Bucyrus Plus Cold-Flu 12.5-10-20-650 mg powder in packet 1 packet PO Q4H PRN (Reason: flu symptoms) Qty: 6 0RF Rx Instructions: DNExceed 5 doses/24h fluticasone propionate [Children's Flonase Allergy Rlf] 50 mcg/actuation spray,suspension 1 spray intranasal Q12H Qty: 16 0RF Rx Instructions: administer into each nostril No Action ascorbic acid (vitamin C) 1,000 mg tablet 1,000 mg PO DAILY 90 Days Qty: 90 1RF cyanocobalamin (vitamin B-12) 1,000 mcg/mL solution 1,000 mcg IM Q4W 30 Days Qty: 2 2RF albuterol sulfate [Ventolin HFA] 90 mcg/actuation HFA aerosol inhaler 1 inh inhalation QID PRN (Reason: shortness of breath or wheezing) Qty: 8.5 1RF pantoprazole 40 mg tablet,delayed release (DR/EC) 40 mg PO DAILY Qty: 90 3RF Rx Instructions: take one tablet half an hour before breakfast cetirizine [All Day Allergy (cetirizine)] 10 mg tablet 10 mg PO DAILY PRN (Reason: allergy symptoms) 90 Days Qty: 90 0RF cholecalciferol (vitamin D3) 25 mcg (1,000 unit) capsule 25 mcg PO DAILY 90 Days Qty: 90 3RF famotidine [Pepcid] 20 mg tablet 20 mg PO BEDTIME Qty: 30 1RF bupropion HCl 150 mg tablet extended release 24 hr 150 mg PO QAM 90 Days Qty: 90 0RF diphenhydramine HCl [Benadryl] 25 mg capsule 50 mg PO TID PRN (Reason: allergic reaction) Qty: 30 0RF fexofenadine [Allergy Relief (fexofenadine)] 180 mg tablet 180 mg PO DAILY Qty: 14 0RF cromolyn 4 % drops 1 drp ophthalmic (eye) QID 30 Days Qty: 10 1RF fluticasone propionate [Flonase Allergy Relief] 50 mcg/actuation spray,suspension 1 spray intranasal DAILY Qty: 9.9 1RF Rx Instructions: administer into each nostril montelukast 10 mg tablet 10 mg PO BEDTIME 30 Days Qty: 30 0RF ibuprofen 800 mg tablet 800 mg PO Q8H Qty: 60 0RF norethindrone (contraceptive) 0.35 mg tablet 0.35 mg PO DAILY Qty: 84 3RF Rx Instructions: Start at beginning of the next period. albuterol sulfate 2.5 mg /3 mL (0.083 %) solution for nebulization 2.5 mg inhalation ONCE Qty: 3 0RF Print Language: Spanish
[2025-07-01 01:48] VITALS: BP 137/89; PULSE 88; RESP 20; TEMP 37.1; O2SAT 99
== END 2025-07-01 01:49 | disposition home or self-care (01) ==
PROVIDERS: Emergency Provider Emergency Medicine; PCP Internal Medicine
DX: J06.9 Acute upper respiratory infection, unspecified (principal); H92.03 Otalgia, bilateral; R07.0 Pain in throat; R51.9 Headache, unspecified; R09.81 Nasal congestion; E55.9 Vitamin D deficiency, unspecified; E66.811 Obesity, class 1; Z68.33 Body mass index [BMI] 33.0-33.9, adult; Z87.891 Personal history of nicotine dependence
CPT/HCPCS: 87637; 87651; 99283; 99284

== ENCOUNTER 2025-07-06 13:39 | Outpatient (AMB) | payer OTHER, SELFPAY ==
[2025-07-06 13:51] VITALS: BP 134/79; PULSE 73; RESP 14; O2SAT 100; BMI 30.1
--- NOTE | 2025-07-06 13:51 | AM.OFFWIN_ITS ---
Intake Vital Signs 07/06/25 13:51 07/06/25 14:30 Height 5 ft 3 in 5 ft 3 in Weight 170 lb 170 lb BMI 30.1 30.1 BP 134/79 120/72 Blood Pressure Location Rt brachial Lt brachial Position Sitting Sitting Respiration 14 Pulse 73 72 Pulse Source Pulse Oximeter Pulse Oximeter Temp 97.9 F Temp Source Oral Pulse Oximetry (%) 100 100 Oxygen Delivery Method Room Air Room Air Intake Visit Reasons: Chest pain /unbale to sleep Intake Note: benny Ramos RN: Pt came in. Amb (i) gait steady. C/o left sided chest pain (sharp) x 2 months with left arm numbness last night. Pt has cold/allergy and stated that she is taking otc. Pt denied any nausea/vo miting/dizziness/lightheadedness. Pt speaks in full sentences. Maggie (ETHEL) aware. Patient also expresess insomnia, head pressure Patient Tobacco Use Status: Former Tobacco user Allergies No Known Allergies Allergy (Verified 07/06/25 14:35) Do you need a note to return to daycare/school/sports/work: No HPI HPI Comments History of Present Illness Details 44 y/o Female patient who presents to [facility] walk in clinic with c/o Recurrent Sinusitis, SOB chest tightness resulting to insomnia due to inability to breath when sleeping. Pt was referred to [facility] back in 2023, but failed to follow up with them. Pt reports that they give me medicine but non have worked well . She has been on chronic use of Abx and prednisone. [facility] Medical History Left breast mass Hypovitaminosis D Class 1 obesity with body mass index (BMI) of 33.0 to 33.9 in adult Physical exam Recurrent UTI UTI (urinary tract infection) Surgical History History of umbilical hernia repair Family History Father No problems noted. Mother No problems noted. Social History Housing: Apartment Alcohol intake: current Alcohol intake frequency: holidays/special occasions only Alcohol type: wine Patient Tobacco Use Status: Former Tobacco user e-Cigarette/Vaping Use: Never Used Second Hand Smoke Exposure: No service: No Current occupational status: unemployed Cognitive needs: No Hearing needs: No Vision needs: No Female Reproductive History Menstrual Age of Menarche: 14 Physical Exam Vital Signs: Last Vital Signs Temp 97.9 F 07/06/25 14:30 Pulse 72 07/06/25 14:30 Resp 14 07/06/25 13:51 BP 120/72 07/06/25 14:30 Pulse Ox 100 07/06/25 14:30 Oxygen Delivery Method Room Air 07/06/25 14:30 BMI result Body Mass Index 30.1 Const General: no acute distress and anxious; No comfortable Nutritional Appearance: overweight Orientation/consciousness: patient oriented x3 HEENT Head: Yes normocephalic Ears: external ears normal and TM abnormal with fluid behind the TM bilateral General nose exam: Nasal discharge present Mouth: moist mucous membranes Resp Effort & Inspection: normal respiratory effort Auscultation: clear to auscultation bilaterally Cardio Heart sounds: S1 normal heart sound present and S2 normal heart sound present Neuro General: patient oriented x3 Psych Speech and movement: Normal speech and movement present Affect: Labile affect present Assessment & Plan Assessment & Plan (1) Sinusitis: Code(s): J32.9 - Chronic sinusitis, unspecified Qualifiers: Chronicity: chronic Sinusitis location: maxillary Qualified Code(s): J32.0 - Chronic maxillary sinusitis Plan: Ordered Benadrly 50 mg at Bedtime to aid with Sleep. Sudafed as decongestant Stressed the importance of Following up with Specialists as directed. Pt will call the gardener florist and schedule a f/u appointment. Medications: New diphenhydramine HCl (Benadryl Allergy) 50 mg PO BEDTIME PRN 14 tabs 0RF sleep J32.0 - Chronic maxillary sinusitis pseudoephedrine HCl ER (Sudafed 12 Hour) 120 mg PO Q12H 20 tabs 0RF J32.0 - Chronic maxillary sinusitis Coding Level of Care Code Est Pt Level 4 (66827) Diagnoses Chronic maxillary sinusitis J32.0 Chronicity: chronic Sinusitis location: maxillary Time Spent (min) 20
[2025-07-06 14:30] VITALS: BP 120/72; PULSE 72; TEMP 36.6; O2SAT 100; BMI 30.1
== END 2025-07-06 15:10 | disposition home or self-care (01) ==
PROVIDERS: PCP Internal Medicine; Visit Provider Nurse Practitioner Family
DX: J32.0 Chronic maxillary sinusitis (principal)

== ENCOUNTER → 2025-07-06 13:39 | Outpatient (BNVA) | payer OTHER, SELFPAY | PROVIDERS: PCP Internal Medicine; Visit Provider Nurse Practitioner Family | DX: J32.0 Chronic maxillary sinusitis (principal); R07.89 Other chest pain; R06.02 Shortness of breath | CPT/HCPCS: 99212 ==

== ENCOUNTER 2025-08-02 13:26 | Outpatient (AMB) | payer OTHER, SELFPAY ==
[2025-08-02 13:57] VITALS: BP 124/82; PULSE 82; O2SAT 98; BMI 30.2
--- NOTE | 2025-08-02 13:57 | MHC.OFFVIS ---
Vital Signs 08/02/25 13:57 Height 5 ft 3 in Weight 170 lb 8 oz BMI 30.2 BP 124/82 Blood Pressure Location Lt brachial Position Sitting Pulse 82 Pulse Source Pulse Oximeter Pulse Oximetry (%) 98 Oxygen Delivery Method Room Air Intake Visit Reasons: INP - Somnolence Intake Note: Patient presents [facility] [employer] [employer] Somnolence. not sleeping my 8 hours not even 2 hours of sleep harrison been dealing with this for over a month , I have never experienced this. witnessed snoring/apnea/gasping. Patient states very tired but can not fall asleep. Has taken melatonin and magnesium and did not help. Goes to bed around 9pm but can not get more then hr asleep. Allergies No Known Allergies Allergy (Verified 08/02/25 13:59) HPI Comments Details: 44 year old female presents for a new patient evaluation of obstructive sleep apnea. She has anxiety and her mind races at night with intrusive thoughts.She is sleeping for less than 2 hours a night and never had sleep issues in the past. She goes to bed at 11pm and gets up at 7pm with at least 2-3 x bathroom breaks. She snores loudly will wake herself up, and gasps for air. She has poorly controlled allergies with nasal congestion and rhinorrhea. She is a former tobacco smoker. She has morning headaches daily, she takes ibuprofen and it does not help. She places an ice pack on her forehead. She has to turn the lights off and go into a dark room to lay down for at least an hour. Headaches 2-3x a week and can last 1-2 hour with photo and phonophobia. They start in the occiput and radiate up to the top of the head then to the ethmoid sinuses. Denies vomiting feels nausea, denies vision changes. She gets dizzy, denies vertigo, balance and gait disturbances. She gets really anxious and her mind races with thougths. She is not a smoker, she tried to take MJ edibles to help with sleep, however they do not work. COUNTS INCLUDE 234 BEDS AT THE [facility] Medical History Left breast mass Hypovitaminosis D Class 1 obesity with body mass index (BMI) of 33.0 to 33.9 in adult Physical exam Recurrent UTI UTI (urinary tract infection) Surgical History History of umbilical hernia repair Family History Father No problems noted. Mother No problems noted. Social History Housing: Apartment Alcohol intake: current Alcohol intake frequency: holidays/special occasions only Alcohol type: wine Patient Tobacco Use Status: Former Tobacco user e-Cigarette/Vaping Use: Never Used Second Hand Smoke Exposure: No service: No Current occupational status: unemployed Cognitive needs: No Hearing needs: No Vision needs: No Female Reproductive History Menstrual Age of Menarche: 14 Physical Exam Vital Signs: Last Vital Signs Pulse 82 08/02/25 13:57 BP 124/82 08/02/25 13:57 Pulse Ox 98 08/02/25 13:57 Oxygen Delivery Method Room Air 08/02/25 13:57 BMI result Body Mass Index 30.2 very pleasant Const General: cooperative, no acute distress and tired appearing Nutritional Appearance: average body habitus Orientation/consciousness: patient oriented x3 HEENT Face and sinus: Yes face symmetric Teeth and gingiva: other (mallampti score is 3) Eyes Pupils: Equal, round and reactive pupils present Neck Neck: Yes full ROM Resp Effort & Inspection: normal respiratory effort and able to speak in complete sentences Neuro General: patient oriented x3 and moves all extremities Cranial nerves: Yes Facial sensation intact/muscles of mastication intact, Yes Equal, round and reactive pupils present, Yes Normal accommodation reflex present, Yes Midline tongue present, Yes Ability to bilaterally rotate head present and Yes Ability to bilaterally elevate shoulders present Gait exam (Neuro): Normal gait present Motor exam (neuro): 5/5 motor strength present throughout and Normal motor muscle tone present throughout Psych Appearance: grossly normal Mental Status: mental status grossly normal Thought process: Normal thought process present Thought content: Normal thought content present Assessment & Plan Assessment & Plan (1) Insomnia: Code(s): G47.00 - Insomnia, unspecified Category: Medical Qualifiers: Insomnia type: unspecified Qualified Code(s): G47.00 - Insomnia, unspecified Plan Insomnia HST to r/o ZBIGNIEW melatonin 5mg may take up to 10mg to induce sleep. Pt. declines ambien today. Nasal congestion continue benadryl 50mg po TID, start with 2 daily doses and increase to 3 doses Anxiety continue wellbutrin 150mg Q AM with breakfast Labs reviewed with pt. Vit D is insufficient start vitamin D and B12 is low will do labs to r/o deficiencies /anemia Orders: Orders RT home sleep study 08/02/25 G47.19 - Other hypersomnia Vitamin B12 and Folate Today G47.00 - Insomnia, unspecified Vitamin B6 Today G47.00 - Insomnia, unspecified Vitamin B1 Today G47.00 - Insomnia, unspecified TSH reflex Free T4 Today G47.00 - Insomnia, unspecified Methylmalonic Acid Today G47.00 - Insomnia, unspecified, G47.9 - Sleep disorder, unspecified, R53.83 - Other fatigue IRON PROFILE Today G47.00 - Insomnia, unspecified, G47.9 - Sleep disorder, unspecified, R53.83 - Other fatigue Homocysteine Today G47.00 - Insomnia, unspecified, G47.9 - Sleep disorder, unspecified, R53.83 - Other fatigue Ferritin Today G47.00 - Insomnia, unspecified Vitamin D 25-OH Total Today G47.00 - Insomnia, unspecified Medications: Refilled diphenhydramine HCl (Benadryl Allergy) 50 mg PO BEDTIME PRN 14 tabs 0RF sleep J32.0 - Chronic maxillary sinusitis Patient Instructions: Sleep Hygiene provided: set a scheduled bedtime and wake time to help regulate the circadian rhythm and balance the release of pituitary hormones. Sleep in a dark room, temperatures below 68 degrees, and no devices n bed. Limit caffeinated products 6 hours prior to bed, and limit fluids 2-4 hours prior to bed. Gentle night yoga, diffusing essential oils, and playing soft music can be relaxing. Coding Level of Care Code New Pt Level 4 (61131) Diagnoses Insomnia, unspecified type G47.00 Insomnia type: unspecified Sleep Questionnaire Difficulty falling asleep: Yes Difficulty staying asleep?: Yes Number of arousals: 10x Snoring: Yes Witnessed apneas: Yes Gasping arousals: Yes Nocturia: No GERD: Yes Vivid dreams: Yes Abnormal behavior in sleep: Yes Abnormal movements in sleep: Yes (arms and legs move alot) Morning headaches: Yes Excessive daytime sleepiness: Yes Daytime naps: No Restless legs: Yes Hallucinations: No Sleep paralysis: No Drop attacks: No Sleep Study: No CPAP: No
== END 2025-08-02 14:48 | disposition home or self-care (01) ==
LOC: HO.HSMC 13:26
PROVIDERS: PCP Internal Medicine; Visit Provider Physician Assistant Medical
DX: G47.00 Insomnia, unspecified (principal)
CPT/HCPCS: 99204

== ENCOUNTER → 2025-08-02 13:26 | Outpatient (BNVA) | payer OTHER, SELFPAY | PROVIDERS: PCP Internal Medicine; Visit Provider Physician Assistant Medical | DX: G47.00 Insomnia, unspecified (principal); R53.83 Other fatigue; G47.9 Sleep disorder, unspecified | CPT/HCPCS: 99202 ==

== ENCOUNTER 2025-08-10 08:27 | Outpatient (REF) | payer OTHER, SELFPAY ==
--- NOTE | ~2025-08-10 | XR_ITS ---
EXAMINATION: XR KNEE BILATERAL CLINICAL INFORMATION: M25.561 - Pain in right and left knee COMPARISON: March 13, 2023 TECHNIQUE: AP bilateral standing view of the knees was obtained. Lateral views both knees. FINDINGS: No acute cortical disruption or malalignment. Joint space narrowing involving mostly the medial compartments with sclerosis along the medial tibial plateau. Small marginal osteophyte formation medial femoral condyle and medial tibial plateau, right knee. No suprapatellar bursa joint effusion. No lytic or blastic lesions. No vascular calcifications. XR/XR Knee Luke 1or 2V IMPRESSION: Medial compartment osteoarthrosis/osteoarthritis, mild to moderate bilaterally. Similar since prior exam. Electronically signed by: Valeriy Jennings MD 08/10/2025 10:09 AM EDT
[2025-08-10 09:33] LABS: MANUAL DIFF FLAG NO
--- NOTE | 2025-08-10 09:34 | ECG_ITS ---
Test Reason : chest pain Blood Pressure : */* mmHG Vent. Rate : 75 BPM Atrial Rate : 75 BPM P-R Int : 130 ms QRS Dur : 66 ms QT Int : 390 ms P-R-T Axes : 19 0 6 degrees QTcB Int : 435 ms Normal sinus rhythm Normal ECG When compared with ECG of 24-Mar-2024 18:42, Nonspecific T wave abnormality no longer evident in Anterior leads Referred By: Catherine Schmitt Electronically Signed By: KARYNA GROVER MD
[2025-08-10 11:06] LABS: Hematocrit 35.8 % (37.0-47.0); Hemoglobin 11.3 g/dl (12.0-16.0); Imm Gran Abs Auto 0.04 X10*3/uL (0.00-0.03); Imm Gran Pct Auto 0.4 % (0.0-0.4); Lymphocytes Absolute Auto 2.1 X10*3/uL (1.2-4.9); Mean Corpuscular HGB Conc 31.6 g/dl (31.0-35.0); Mean Corpuscular Hemoglobin 26.0 pg (27.0-33.0); Mean Corpuscular Volume 82.3 fL (80.0-98.0); NRBC Abs Auto 0.000 X10*3/uL (0.0-0.012); NRBC Pct Auto 0.0 /100WBC (0.0-0.2); Platelet Count 467 X10*3/uL (160-400); Red Blood Count 4.35 X10*6/uL (4.20-5.50); White Blood Count 11.3 X10*3/uL (4.8-10.8)
[2025-08-10 11:56] LABS: Iron 33 mcg/dL (30-160); Percent Iron Saturation 8 % (15-50); Total Iron Binding Capacity 404 mcg/dL (228-428); Unsaturated Iron Binding 371 ug/dL
[2025-08-10 12:01] LABS: Ferritin 6 ng/mL (10-250)
[2025-08-10 12:09] LABS: Folate 7.1 ng/mL (> or = 4.0); Vitamin B12 299 pg/mL (200-900)
== END 2025-08-10 08:28 | disposition home or self-care (01) ==
LOC: HO.XRAY 08:27
PROVIDERS: Physician Assistant Medical; PCP Internal Medicine; Visit Provider Internal Medicine
DX: R53.83 Other fatigue (principal); G47.00 Insomnia, unspecified; G47.9 Sleep disorder, unspecified; D64.9 Anemia, unspecified; M25.561 Pain in right knee; M25.562 Pain in left knee; R07.9 Chest pain, unspecified; E53.8 Deficiency of other specified B group vitamins; E55.9 Vitamin D deficiency, unspecified; Z79.899 Other long term (current) drug therapy
CPT/HCPCS: 36415; 73560; 82306; 82607; 82728; 82746; 83090; 83540; 83921; 84207; 84425; 84443; 85025; 93005; 96127; 99212

== ENCOUNTER 2025-08-10 08:27 | Outpatient (AMB) | payer OTHER, SELFPAY ==
[2025-08-10 08:35] VITALS: BP 112/74; PULSE 85; TEMP 36.1; O2SAT 99; BMI 30.2
--- NOTE | 2025-08-10 08:35 | MHC.PC.OV ---
Vital Signs 08/10/25 08:35 Height 5 ft 3 in Weight 170 lb 4 oz BMI 30.2 BP 112/74 Blood Pressure Location Lt brachial Position Sitting Pulse 85 Pulse Source Pulse Oximeter Temp 97.0 F Temp Source Temporal Artery Scan Pulse Oximetry (%) 99 Oxygen Delivery Method Room Air Intake Visit Reasons: follow up [facility] Attendant Required: No Accompanied by: Self / Same As Patient Allergies No Known Allergies Allergy (Verified 08/10/25 08:59) Medication List - Last Reconciled 08/10/25 by Catherine Schmitt MD albuterol sulfate 90 mcg/actuation (Ventolin HFA) 1 inh inhalation QID PRN ascorbic acid (vitamin C) 1,000 mg PO DAILY 90 days bupropion HCl XL 150 mg PO QAM 90 days cetirizine (All Day Allergy (cetirizine)) 10 mg PO DAILY PRN 90 days cholecalciferol (vitamin D3) 25 mcg PO DAILY 90 days cromolyn 4% 1 drp ophthalmic (eye) QID 30 days diphenhydramine HCl (Benadryl) 50 mg (2 x 25 mg) PO TID PRN diphenhydramine HCl (Benadryl Allergy) 50 mg PO BEDTIME PRN mrpucqdye-KGC-BT-acetaminophen 12.5-10-20-650 mg ([place] Plus Cold-Flu) 1 packet PO Q4H PRN famotidine (Pepcid) 20 mg PO BEDTIME PRN fexofenadine (Allergy Relief (fexofenadine)) 180 mg PO DAILY fluticasone propionate 50 mcg/actuation (Children's Flonase Allergy Relief) 1 spray intranasal Q12H ibuprofen 800 mg PO Q8H levalbuterol tartrate 45 mcg/actuation (Xopenex HFA) 2 puffs inhalation Q4-6H PRN 30 days mecobalamin (vitamin B12) 1,000 mcg PO DAILY montelukast 10 mg PO BEDTIME 30 days norethindrone (contraceptive) 0.35 mg PO DAILY pantoprazole 40 mg PO DAILY pseudoephedrine HCl ER (Sudafed 12 Hour) 120 mg PO Q12H Tobacco use date assessed: 08/10/25 Dental Screening Dental Screen Date: 08/10/25 Did you have a dental visit in the last 12 months?: No Did you have a dental problem in the last 6 months where you did not have access to dental care?: No Was dental information given to patient?: No HPI HPI Comments History of Present Illness Details The patient is a 44-year-old female presenting for management of multiple chronic conditions including depression, allergic rhinitis, gastroesophageal reflux disease, vitamin deficiencies, and knee pain. The patient has been taking bupropion 150 mg for depression, which is part of her current medication regimen. She reports no allergies to medications and uses cetirizine for allergic rhinitis. For gastroesophageal reflux disease, she is on pantoprazole. She also takes vitamin D and B12 supplements due to deficiencies noted in previous evaluations. The patient denies smoking and reports occasional alcohol consumption during special occasions. She has been experiencing knee pain in both knees, for which an x-ray and possible referral to orthopedics were discussed. There is a mention of restless leg syndrome, although her hemoglobin levels were reported to be normal in the last check. [facility] Medical History (Updated 08/10/25 @ 09:10 by Catherine Schmitt MD) Left breast mass Hypovitaminosis D Class 1 obesity with body mass index (BMI) of 33.0 to 33.9 in adult Physical exam Recurrent UTI UTI (urinary tract infection) Surgical History History of umbilical hernia repair Family History Father No problems noted. Mother No problems noted. Social History Housing: Apartment Alcohol intake: current Alcohol intake frequency: holidays/special occasions only Alcohol type: wine Patient Tobacco Use Status: Former Tobacco user e-Cigarette/Vaping Use: Never Used Second Hand Smoke Exposure: No service: No Current occupational status: unemployed Cognitive needs: No Hearing needs: No Vision needs: No Female Reproductive History Menstrual Age of Menarche: 14 Questionnaire PHQ-9 Over the last 2 weeks, how often have you been bothered by any of the following problems? 1. Little interest or pleasure in doing things: not at all 2. Feeling down, depressed, or hopeless: nearly every day 3. Trouble falling or staying asleep, or sleeping too much: more than half the days 4. Feeling tired or having little energy: more than half the days 5. Poor appetite or overeating: more than half the days 6. Feeling bad about yourself - or that you are a failure or have let yourself or your family down: more than half the days 7. Trouble concentrating on things, such as reading the newspaper or watching television: several days 8. Moving or speaking so slowly that other people could have noticed. Or the opposite - being so fidgety or restless that you have been moving around a lot more than usual: not at all 9. Thoughts that you would be better off or of hurting yourself in some way: not at all Total score: 12 Depression Screening Interpretation: Positive Depression Screening Follow-up: Existing condition, In treatment and Follow-up Visit Requested Depression Screening Done: Yes [id number] - PHQ-9 Billing: Yes Source: Developed by Drs. Gasper Juan, Bernice Michel, Enrique Dinero and colleagues, with an educational marta from [email or web address] [email or web address]). Thrive Questionnaire Date Thrive assessed: 03/21/25 I am a: Patient What is your living situation today?: I have a steady place to live Within the past 12 months, did the food you bought not last and you didn't have the money to get more?: Never true Within the past 12 months, did you worry whether your food would run out before you got money to buy more?: Never true Do you have trouble paying for medicines?: No Do you have trouble getting transportation to medical appointments?: No Do you have trouble paying your heating and electricity bill?: No Do you have trouble taking care of your child, family member or friend?: No Do you have trouble with day-to-day activities such as bathing, preparing meals, shopping, managing finances, etc.?: No Are you currently unemployed and looking for a job?: Yes Are you interested in more education?: Yes Please select the resources that you would like help with: None Currently or been in a relationship where the following occur: No concerns reported THRIVE Score: 0 AUDIT C Alcohol Use Questionnaire (AUDIT-C) 1. How often do you have a drink containing alcohol?: Monthly or less 2. How many drinks containing alcohol do you have on a typical day when you are drinking?: 1 or 2 3. How often do you have six or more drinks on one occasion?: Never Total Score: 1 KVNG-7 AMB Questionnaire KVNG-7 Date KVNG - 7 assessed: 03/23/25 Feeling nervous, anxious, or on edge: 1 = Several days Not being able to stop or control worryin = Nearly every day Worrying too much about different things: 3 = Nearly every day Trouble relaxin = Nearly every day Being so restless that it is hard to sit still: 2 = More than half the days Becoming easily annoyed or irritable: 3 = Nearly every day Feeling afraid as if something awful might happen: 3 = Nearly every day Total KVNG-7 score (0-4 normal; 5-9 mild; 10-14 moderate; 15-21 severe): 18 Source: Developed by Drs. Gasper Juan, Bernice Michel, Enrique Dinero and colleagues, with an educational marta from [email or web address] [email or web address]). Review of Systems Const All systems reviewed & are unremarkable except as noted in HPI and below Card Denies chest pain at rest, Denies chest pain with activity, Denies edema, Denies irregular heart rhythm, Denies claudication, Denies dyspnea, Denies dyspnea on exertion, Denies orthopnea, Denies paroxysmal nocturnal dyspnea and Denies slow heart rate Resp Denies cough, Denies dyspnea and Denies dyspnea on exertion Physical exam (Primary Care) Vital Signs: Last Vital Signs Temp 97.0 F 08/10/25 08:35 Pulse 85 08/10/25 08:35 BP 112/74 08/10/25 08:35 Pulse Ox 99 08/10/25 08:35 Oxygen Delivery Method Room Air 08/10/25 08:35 BMI result Body Mass Index 30.2 Tobacco/Smoking Status: Tobacco use Status Tobacco use date assessed 08/10/25 08/10/25 08:39 Patient Tobacco Use Status Former Tobacco user 08/10/25 08:39 e-Cigarette/Vaping Use Never Used 08/10/25 08:39 PHQ-9: PHQ-9 Score PHQ-9: Total score 12 08/10/25 08:39 Depression Screening Interpretation: Positive Depression Screening Follow-up: Existing condition, In treatment and Follow-up Visit Requested Thrive Assessment: Date of Thrive Assessment Date Thrive assessed 03/21/25 08/10/25 08:39 Currently or been in a relationship where the following occur: No concerns reported Resp Effort & Inspection: normal respiratory effort Auscultation: clear to auscultation bilaterally Cardio Jugular venous distension: no JVD Rate: regular rate Rhythm: regular rhythm Heart sounds: S1 normal heart sound present and S2 normal heart sound present Extrem General: Yes full ROM Coding Level of Care Code Est Pt Level 4 (84349) Complex EM visit Add On G2211 Diagnoses Mild major depression F32.0 Chest pain R07.9 Hypovitaminosis D E55.9 B12 deficiency E53.8 Left knee pain M25.562 Right knee pain M25.561 Restless leg syndrome G25.81 Allergic rhinitis due to animal hair and dander J30.81 Allergic rhinitis trigger: animal hair and dander Chronic GERD K21.9 Additional Codes PHQ-9 - 14228 - PHQ-9 Billing: Yes ([id number]) Time Spent (min) 24 Assessment & Plan Assessment & Plan (1) Mild major depression: Code(s): F32.0 - Major depressive disorder, single episode, mild Category: Medical (2) Chest pain: Code(s): R07.9 - Chest pain, unspecified Category: Medical (3) Hypovitaminosis D: Code(s): E55.9 - Vitamin D deficiency, unspecified Category: Medical (4) B12 deficiency: Code(s): E53.8 - Deficiency of other specified B group vitamins Category: Medical (5) Left knee pain: Code(s): M25.562 - Pain in left knee Category: Medical (6) Right knee pain: Code(s): M25.561 - Pain in right knee Category: Medical (7) Restless leg syndrome: Code(s): G25.81 - Restless legs syndrome Category: Medical (8) Allergic rhinitis: Code(s): J30.9 - Allergic rhinitis, unspecified Category: Medical Qualifiers: Allergic rhinitis trigger: animal hair and dander Qualified Code(s): J30.81 - Allergic rhinitis due to animal (cat) (dog) hair and dander (9) Chronic GERD: Code(s): K21.9 - Gastro-esophageal reflux disease without esophagitis Category: Medical Plan Plan Patient was informed and verbally consented to the use of an ambient scribe for clinic note documentation during this visit. 1. Major depressive disorder, recurrent, mild F33.0 HCC 59 The patient is currently on bupropion 150 mg for depression management. 2. Allergic rhinitis, unspecified J30.9 Cetirizine is being used for managing allergic rhinitis symptoms. 3. Gastro-esophageal reflux disease without esophagitis K21.9 Pantoprazole is prescribed for gastroesophageal reflux disease. 4. Vitamin D deficiency, unspecified E55.9 Vitamin D supplementation is ongoing due to deficiency. 5. Other vitamin B12 deficiency anemias D51.8 Vitamin B12 supplementation is being continued. 6. Restless legs syndrome G25.81 Restless leg syndrome is considered, but hemoglobin levels are normal. 7. Pain in right knee M25.561 X-rays of both knees are planned, and referral to orthopedics is considered. 8. Pain in left knee M25.562 ZR ordered. Orders: Orders XR knee LT 2V Today M25.562 - Pain in left knee XR knee RT 2V Today M25.561 - Pain in right knee IRON PROFILE Today D64.9 - Anemia, unspecified ECG 12 lead EKG Today R07.9 - Chest pain, unspecified Complete Blood Count Auto Diff Today D64.9 - Anemia, unspecified Vitamin B12 and Folate Today E53.8 - Deficiency of other specified B group vitamins Vitamin D 25-OH Total Today E55.9 - Vitamin D deficiency, unspecified Referrals Orthopedics Referral M25.561 - Pain in right knee, M25.562 - Pain in left knee Medications: New ropinirole administer 1-3 hours before bedtime 0.5 mg PO BEDTIME 90 tabs 1RF 90 days G25.81 - Restless legs syndrome Refilled cromolyn 4% 1 drp ophthalmic (eye) QID 10 mL 1RF 30 days
== END 2025-08-10 09:08 | disposition home or self-care (01) ==
LOC: HO.HMCH 08:27
PROVIDERS: PCP Internal Medicine; Visit Provider Internal Medicine
DX: F32.0 Major depressive disorder, single episode, mild (principal); R07.9 Chest pain, unspecified; E55.9 Vitamin D deficiency, unspecified; E53.8 Deficiency of other specified B group vitamins; M25.562 Pain in left knee; M25.561 Pain in right knee; G25.81 Restless legs syndrome; J30.81 Allergic rhinitis due to animal (cat) (dog) hair and dander; K21.9 Gastro-esophageal reflux disease without esophagitis

== ENCOUNTER → 2025-08-10 09:34 | Outpatient (BNV) | payer OTHER, SELFPAY | PROVIDERS: PCP Internal Medicine; Visit Provider Internal Medicine Cardiovascular Disease | DX: R07.9 Chest pain, unspecified (principal) | CPT/HCPCS: 93010 ==

== ENCOUNTER → 2025-08-10 09:49 | Outpatient (BNV) | payer OTHER, SELFPAY | PROVIDERS: PCP Internal Medicine; Visit Provider Radiology Diagnostic Radiology | DX: M17.0 Bilateral primary osteoarthritis of knee (principal) | CPT/HCPCS: 73560 ==

== ENCOUNTER 2025-09-25 10:18 | Outpatient (AMB) | payer OTHER, SELFPAY ==
[2025-09-25 10:25] VITALS: BP 118/78; PULSE 90; O2SAT 98; BMI 30.5
--- NOTE | 2025-09-25 10:25 | MHC.PC.OV ---
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 Accompanied by: Self / Same As Patient Allergies No Known Allergies Allergy (Verified 09/25/25 10:42) Medication List - Last Reconciled 09/25/25 by Catherine Schmitt MD albuterol sulfate 90 mcg/actuation (Ventolin HFA) 1 inh inhalation QID PRN ascorbic acid (vitamin C) 1,000 mg PO DAILY 90 days bupropion HCl XL 150 mg PO QAM 90 days cetirizine (All Day Allergy (cetirizine)) 10 mg PO DAILY PRN 90 days cholecalciferol (vitamin D3) 25 mcg PO DAILY 90 days cromolyn 4% 1 drp ophthalmic (eye) QID 30 days diphenhydramine HCl (Benadryl) 50 mg (2 x 25 mg) PO TID PRN diphenhydramine HCl (Benadryl Allergy) 50 mg PO BEDTIME PRN pyamyvvww-LHK-QQ-acetaminophen 12.5-10-20-650 mg (Alla-Macy Plus Cold-Flu) 1 packet PO Q4H PRN famotidine (Pepcid) 20 mg PO BEDTIME PRN ferrous sulfate 325 mg PO DAILY 90 days fexofenadine (Allergy Relief (fexofenadine)) 180 mg PO DAILY fluticasone propionate 50 mcg/actuation (Children's Flonase Allergy Relief) 1 spray intranasal Q12H ibuprofen 800 mg PO Q8H levalbuterol tartrate 45 mcg/actuation (Xopenex HFA) 2 puffs inhalation Q4-6H PRN 30 days mecobalamin (vitamin B12) 1,000 mcg PO DAILY montelukast 10 mg PO BEDTIME 30 days norethindrone (contraceptive) 0.35 mg PO DAILY pantoprazole 40 mg PO DAILY pseudoephedrine HCl ER (Sudafed 12 Hour) 120 mg PO Q12H ropinirole 0.5 mg PO BEDTIME 90 days Tobacco use date assessed: 09/25/25 Dental Screening Dental Screen Date: 09/25/25 Did you have a dental visit in the last 12 months?: No Did you have a dental problem in the last 6 months where you did not have access to dental care?: No Was dental information given to patient?: No HPI HPI Comments History of Present Illness Details The patient is a 44-year-old female presenting for a follow-up visit for management of her chronic conditions, including depression and anxiety. Recent lab work revealed a vitamin D deficiency, but other results were normal. Regarding her depression, the patient has been taking bupropion for approximately one and a half months but is uncertain if it is helping. Her current medication regimen includes iron once daily, ibuprofen as needed, a contraceptive, pantoprazole for acid reflux, and ropinirole for restless leg syndrome. She takes ropinirole at night, about three hours before bed, for her restless leg syndrome symptoms and does not experience symptoms during the day. The patient also reports that her allergies are severe. [facility] Medical History (Updated 09/25/25 @ 10:53 by Catherine Schmitt MD) Left breast mass Hypovitaminosis D Class 1 obesity with body mass index (BMI) of 33.0 to 33.9 in adult Physical exam Recurrent UTI UTI (urinary tract infection) Surgical History History of umbilical hernia repair Family History Father No problems noted. Mother No problems noted. Social History Housing: Apartment Alcohol intake: current Alcohol intake frequency: holidays/special occasions only Alcohol type: wine Patient Tobacco Use Status: Former Tobacco user e-Cigarette/Vaping Use: Never Used Second Hand Smoke Exposure: No service: No Current occupational status: unemployed Cognitive needs: No Hearing needs: No Vision needs: No Female Reproductive History Menstrual Age of Menarche: 14 Questionnaire PHQ-9 Over the last 2 weeks, how often have you been bothered by any of the following problems? 1. Little interest or pleasure in doing things: not at all 2. Feeling down, depressed, or hopeless: nearly every day 3. Trouble falling or staying asleep, or sleeping too much: more than half the days 4. Feeling tired or having little energy: more than half the days 5. Poor appetite or overeating: more than half the days 6. Feeling bad about yourself - or that you are a failure or have let yourself or your family down: more than half the days 7. Trouble concentrating on things, such as reading the newspaper or watching television: several days 8. Moving or speaking so slowly that other people could have noticed. Or the opposite - being so fidgety or restless that you have been moving around a lot more than usual: not at all 9. Thoughts that you would be better off or of hurting yourself in some way: not at all Total score: 12 Depression Screening Interpretation: Positive Depression Screening Follow-up: Existing condition, In treatment and Follow-up Visit Requested Depression Screening Done: Yes 46140 - PHQ-9 Billing: Yes Source: Developed by Drs. Gasper Juan, Bernice Michel, Enrique Dinero and colleagues, with an educational marta from [email or web address]. Thrive Questionnaire Date Thrive assessed: 03/21/25 I am a: Patient What is your living situation today?: I have a steady place to live Within the past 12 months, did the food you bought not last and you didn't have the money to get more?: Never true Within the past 12 months, did you worry whether your food would run out before you got money to buy more?: Never true Do you have trouble paying for medicines?: No Do you have trouble getting transportation to medical appointments?: No Do you have trouble paying your heating and electricity bill?: No Do you have trouble taking care of your child, family member or friend?: No Do you have trouble with day-to-day activities such as bathing, preparing meals, shopping, managing finances, etc.?: No Are you currently unemployed and looking for a job?: Yes Are you interested in more education?: Yes Please select the resources that you would like help with: None Currently or been in a relationship where the following occur: No concerns reported THRIVE Score: 0 AUDIT C Alcohol Use Questionnaire (AUDIT-C) 1. How often do you have a drink containing alcohol?: Monthly or less 2. How many drinks containing alcohol do you have on a typical day when you are drinking?: 1 or 2 3. How often do you have six or more drinks on one occasion?: Never Total Score: 1 Score Reviewed/Action Taken: No KVNG-7 AMB Questionnaire KVNG-7 Date KVNG - 7 assessed: 09/25/25 Feeling nervous, anxious, or on edge: 1 = Several days Not being able to stop or control worryin = Nearly every day Worrying too much about different things: 3 = Nearly every day Trouble relaxin = Nearly every day Being so restless that it is hard to sit still: 2 = More than half the days Becoming easily annoyed or irritable: 3 = Nearly every day Feeling afraid as if something awful might happen: 3 = Nearly every day Total KVNG-7 score (0-4 normal; 5-9 mild; 10-14 moderate; 15-21 severe): 18 Source: Developed by Drs. Gasper Juan, Bernice Michel, Enrique Dinero and colleagues, with an educational marta from [email or web address]. KVNG-7 Assessment Billing KVNG-7 Assessment Tool: KVNG-7 Assessment 04125 Review of Systems Const All systems reviewed & are unremarkable except as noted in HPI and below Card Denies chest pain at rest, Denies chest pain with activity, Denies edema, Denies irregular heart rhythm, Denies claudication, Denies dyspnea, Denies dyspnea on exertion, Denies orthopnea, Denies paroxysmal nocturnal dyspnea and Denies slow heart rate Resp Denies cough, Denies dyspnea and Denies dyspnea on exertion Physical exam (Primary Care) Vital Signs: Last Vital Signs Pulse 90 09/25/25 10:25 BP 118/78 09/25/25 10:25 Pulse Ox 98 09/25/25 10:25 Oxygen Delivery Method Room Air 09/25/25 10:25 BMI result Body Mass Index 30.5 BMI Assessment/Plan discussion: High BMI High, discussed plan: lifestyle, weight reduction, dietary and physical activity Tobacco/Smoking Status: Tobacco use Status Tobacco use date assessed 09/25/25 09/25/25 10:30 Patient Tobacco Use Status Former Tobacco user 09/25/25 10:30 e-Cigarette/Vaping Use Never Used 09/25/25 10:30 PHQ-9: PHQ-9 Score PHQ-9: Total score 12 09/25/25 10:48 Depression Screening Interpretation: Positive Depression Screening Follow-up: Existing condition, In treatment and Follow-up Visit Requested Thrive Assessment: Date of Thrive Assessment Date Thrive assessed 03/21/25 09/25/25 10:30 Currently or been in a relationship where the following occur: No concerns reported Resp Effort & Inspection: normal respiratory effort Auscultation: clear to auscultation bilaterally Cardio Jugular venous distension: no JVD Rate: regular rate Rhythm: regular rhythm Heart sounds: S1 normal heart sound present and S2 normal heart sound present Extrem General: Yes full ROM Coding Level of Care Code Est Pt Level 4 (71250) Diagnoses Mild major depression F32.0 Hypovitaminosis D E55.9 Allergic rhinitis due to animal hair and dander J30.81 Allergic rhinitis trigger: animal hair and dander Right wrist pain M25.531 Restless leg syndrome G25.81 Additional Codes KVNG-7 Assessment Billing - KVNG-7 Assessment Tool: KVNG-7 Assessment 91322 ([id number]) PHQ-9 - 42510 - PHQ-9 Billing: Yes ([id number]) Time Spent (min) 23 Assessment & Plan Assessment & Plan (1) Mild major depression: Code(s): F32.0 - Major depressive disorder, single episode, mild Category: Medical (2) Hypovitaminosis D: Code(s): E55.9 - Vitamin D deficiency, unspecified Category: Medical (3) Allergic rhinitis: Code(s): J30.9 - Allergic rhinitis, unspecified Category: Medical Qualifiers: Allergic rhinitis trigger: animal hair and dander Qualified Code(s): J30.81 - Allergic rhinitis due to animal (cat) (dog) hair and dander (4) Right wrist pain: Code(s): M25.531 - Pain in right wrist Category: Medical (5) Restless leg syndrome: Code(s): G25.81 - Restless legs syndrome Category: Medical Plan Plan 1. Depression The patient has been on bupropion for about a month and a half but is uncertain of its therapeutic effect. A refill for bupropion will be provided. 2. Restless Leg Syndrome The patient is managing her symptoms with ropinirole, taken at night about three hours before bed. 3. Gastroesophageal Reflux Disease The patient continues to take pantoprazole for acid reflux. 4. Right Wrist Pain An X-ray of the right hand and wrist has been ordered to evaluate the patient's complaint. Orders: Orders XR wrist RT 2V Today M25.531 - Pain in right wrist Medications: New ropinirole administer 1-3 hours before bedtime 1 mg PO BEDTIME 90 tabs 1RF 90 days Refilled bupropion HCl XL 150 mg PO QAM 90 tabs 0RF 90 days F32.0 - Major depressive disorder, single episode, mild Discontinued ropinirole administer 1-3 hours before bedtime Discontinued Reason: Patient Completed Course 0.5 mg PO BEDTIME 90 days 90 tabs 1RF G25.81 - Restless legs syndrome
== END 2025-09-25 10:54 | disposition home or self-care (01) ==
LOC: HO.HMCH 10:19
PROVIDERS: PCP Internal Medicine; Visit Provider Internal Medicine
DX: F32.0 Major depressive disorder, single episode, mild (principal); E55.9 Vitamin D deficiency, unspecified; J30.81 Allergic rhinitis due to animal (cat) (dog) hair and dander; M25.531 Pain in right wrist; G25.81 Restless legs syndrome

== ENCOUNTER → 2025-09-25 10:18 | Outpatient (BNVA) | payer OTHER, SELFPAY | PROVIDERS: PCP Internal Medicine; Visit Provider Internal Medicine | DX: F32.0 Major depressive disorder, single episode, mild (principal); F41.9 Anxiety disorder, unspecified; E55.9 Vitamin D deficiency, unspecified; J30.81 Allergic rhinitis due to animal (cat) (dog) hair and dander; M25.531 Pain in right wrist; G25.81 Restless legs syndrome | CPT/HCPCS: 96127; 99212 ==

== ENCOUNTER 2025-10-06 08:50 | Outpatient (REF) | payer OTHER, SELFPAY ==
--- NOTE | ~2025-10-06 | XR_ITS ---
EXAMINATION: XR KNEE, LEFT XR KNEE, RIGHT HISTORY: Bilateral knee pain. COMPARISON: 08/10/2025, 03/13/2023. TECHNIQUE: AP view bilateral knees standing, lateral and patellofemoral views each knee. FINDINGS: RIGHT KNEE: No fracture, dislocation, or suspicious bone lesion. Mild osteoarthrosis in the medial and patellofemoral compartments. Mild spurring of the tibial spines. Normal patellar alignment. No abnormal patellar tilt. No evidence of joint effusion. Soft tissues appear normal. LEFT KNEE: No fracture, dislocation, or suspicious bone lesion. Mild osteoarthrosis in the medial and patellofemoral compartments. Mild spurring of the tibial spines. Normal patellar alignment. No abnormal patellar tilt. No evidence of joint effusion. Soft tissues appear normal. XR/XR knee RT 3V IMPRESSION: 1. Mild medial and patellofemoral compartment osteoarthrosis of each knee. 2. No evidence of joint effusion of either knee. Electronically signed by: Fransico Sherwood MD 10/06/2025 09:47 AM [facility]LEE
--- NOTE | ~2025-10-06 | XR_ITS ---
EXAMINATION: XR KNEE, LEFT XR KNEE, RIGHT HISTORY: Bilateral knee pain. COMPARISON: 08/10/2025, 03/13/2023. TECHNIQUE: AP view bilateral knees standing, lateral and patellofemoral views each knee. FINDINGS: RIGHT KNEE: No fracture, dislocation, or suspicious bone lesion. Mild osteoarthrosis in the medial and patellofemoral compartments. Mild spurring of the tibial spines. Normal patellar alignment. No abnormal patellar tilt. No evidence of joint effusion. Soft tissues appear normal. LEFT KNEE: No fracture, dislocation, or suspicious bone lesion. Mild osteoarthrosis in the medial and patellofemoral compartments. Mild spurring of the tibial spines. Normal patellar alignment. No abnormal patellar tilt. No evidence of joint effusion. Soft tissues appear normal. XR/XR knee LT 3V IMPRESSION: 1. Mild medial and patellofemoral compartment osteoarthrosis of each knee. 2. No evidence of joint effusion of either knee. Electronically signed by: Fransico Sherwood MD 10/06/2025 09:47 AM A[facility]LEE
== END 2025-10-06 08:51 | disposition home or self-care (01) ==
LOC: HO.HOSX 08:50
PROVIDERS: Visit Provider Physician Assistant
DX: M17.0 Bilateral primary osteoarthritis of knee (principal); M23.92 Unspecified internal derangement of left knee
CPT/HCPCS: 73562; 99212

== ENCOUNTER 2025-10-06 09:31 | Outpatient (AMB) | payer OTHER, SELFPAY ==
--- NOTE | 2025-10-06 09:47 | MHC.OFFVIS ---
Intake Visit Reasons: New Prob - B/L knee pain Intake Note: Jacinta is a 44 year old female who present today for a evaluation of her bilateral knee pain. Patient was seen last on 03/13/23 for her right knee. Injections were discussed at the last visit and was differed at the time. Patient reports ongoing pain for about for a couple year. She notices that her pain is worse when she is going up and down the stairs and walking. Patient mentions that her right knee is worse than the left. Patient has tried NSAIDs and Lidocaine patches with minimal relief. Allergies No Known Allergies Allergy (Verified 10/06/25 09:50) HPI HPI New Prob - B/L knee pain: Details: Ms. Verma is a 44-year-old female who presents to the office today for evaluation of bilateral knee pain. Patient was last seen on 03/13/2023 for her right knee only at that time. Patient reports that she has continued knee pain in bilateral knees that waxes and wanes but has been progressively getting worse. Her pain worsens with going up and down stairs as well as ambulating for long periods of time. She reports the right knee is more painful than her left. She has tried anti-inflammatories as well as lidocaine patches with mild relief. At her last appointment in 2022 cortisone injections were discussed at that time with the patient opted to defer. PENDING SALE TO [facility] Medical History Left breast mass Hypovitaminosis D Class 1 obesity with body mass index (BMI) of 33.0 to 33.9 in adult Physical exam Recurrent UTI UTI (urinary tract infection) Surgical History History of umbilical hernia repair Family History Father No problems noted. Mother No problems noted. Social History Housing: Apartment Alcohol intake: current Alcohol intake frequency: holidays/special occasions only Alcohol type: wine Patient Tobacco Use Status: Former Tobacco user e-Cigarette/Vaping Use: Never Used Second Hand Smoke Exposure: No service: No Current occupational status: unemployed Cognitive needs: No Hearing needs: No Vision needs: No Female Reproductive History Menstrual Age of Menarche: 14 Review of Systems Const All systems reviewed & are unremarkable except as noted in HPI and below Physical Exam Const General: cooperative, healthy appearing and no acute distress Resp Effort & Inspection: normal respiratory effort and able to speak in complete sentences Extrem Other: Right/Left knee: Normal to inspection. No ecchymosis, erythema, or joint effusion. No tenderness to palpation along the medial or lateral joint lines. Full knee extension and flexion. Crepitus felt with range of motion. NVI. Psych Appearance: grossly normal Mental Status: mental status grossly normal Attitude: cooperative Assessment & Plan Assessment & Plan (1) Patellofemoral arthritis of right knee: Code(s): M17.11 - Unilateral primary osteoarthritis, right knee Category: Medical (2) Internal derangement of left knee: Code(s): M23.92 - Unspecified internal derangement of left knee Category: Medical Plan Ms. Verma is a 44-year-old female who presents to the office today for evaluation of bilateral knee pain. Patient was last seen on 03/13/2023 for her right knee only at that time. Patient reports that she has continued knee pain in bilateral knees that waxes and wanes but has been progressively getting worse. Her pain worsens with going up and down stairs as well as ambulating for long periods of time. She reports the right knee is more painful than her left. She has tried anti-inflammatories as well as lidocaine patches with mild relief. At her last appointment in 2022 cortisone injections were discussed at that time with the patient opted to defer. On the office today, we discussed additional conservative treatment options including physical therapy, cortisone injection and knee bracing. Patient again would like to defer on cortisone injection. Patient however was interested in knee bracing. Patient was fit for bilateral knee Genumed knee braces off the shelf while in the office today. She would like to hold on physical therapy at this time. She will follow up PRN, sooner if needed. X-rays of the bilateral knees which were obtained while in the office today and were reviewed by me, Steffany Sepulveda PA-C, revealed no acute fracture or dislocation. Left knee patellofemoral arthritis. Orders: Orders XR knee LT 3V Today M25.569 - Pain in unspecified knee XR knee RT 3V Today M25.569 - Pain in unspecified knee Coding Level of Care Code Est Pt Level 3 (62896) Diagnoses Patellofemoral arthritis of right knee M17.11 Internal derangement of left knee M23.92
== END 2025-10-06 10:16 | disposition home or self-care (01) ==
LOC: HO.HOS 09:32
PROVIDERS: PCP Internal Medicine; Visit Provider Physician Assistant
DX: M17.11 Unilateral primary osteoarthritis, right knee (principal); M23.8X2 Other internal derangements of left knee
CPT/HCPCS: 99213

== ENCOUNTER → 2025-10-06 09:35 | Outpatient (BNV) | payer OTHER, SELFPAY | PROVIDERS: Visit Provider Radiology Diagnostic Radiology | DX: M17.0 Bilateral primary osteoarthritis of knee (principal) | CPT/HCPCS: 73562 ==

== ENCOUNTER 2025-10-10 01:36 | Emergency (ER) | payer OTHER, SELFPAY ==
[2025-10-10 01:39] VITALS: BP 123/74; PULSE 90; RESP 20; TEMP 36.3; O2SAT 100; BMI 30.1
--- NOTE | 2025-10-10 02:39 | ED.GENADULT ---
HPI - General Adult General Chief complaint: Back Pain/Injury Stated complaint: back pain Time Seen by Provider: 10/10/25 02:02 Source: patient Limitations: no limitations History of Present Illness ED Provider: Shy Ozuna PA-C HPI narrative: 44-year-old female with a history of obesity, restless leg syndrome, known arthritis, known chronic lumbar degenerative changes, chronic pain syndrome, who presents with low back pain. Patient states she has been having left sided lumbar pain for the past 2 days. She can not account for a specific mechanism of injury, but she states she feels as if she ?pulled muscles in her back and ?. Patient states she can not get comfortable, pain worse with position change. Denies radiation of pain down the left lower extremity, weakness of lower extremity, paresthesia, urinary retention or bowel incontinence. Related Data Home Medications ?Medication ?Instructions ?Recorded ?Confirmed famotidine 20 mg tablet (Pepcid) 20 mg PO BEDTIME PRN 07/06/25 09/25/25 mecobalamin (vitamin B12) 1,000 1,000 mcg PO DAILY 07/06/25 09/25/25 mcg lozenges Previous Rx's ?Medication ?Instructions ?Recorded ascorbic acid (vitamin C) 1,000 mg 1,000 mg PO DAILY 90 days #90 tabs 06/26/22 tablet diphenhydramine HCl 25 mg capsule 50 mg (2 x 25 mg) PO TID PRN 03/10/23 (Benadryl) allergic reaction #30 caps fexofenadine 180 mg tablet 180 mg PO DAILY #14 tabs 06/20/23 (Allergy Relief (fexofenadine)) pantoprazole 40 mg tablet,delayed 40 mg PO DAILY #90 tabs 01/01/24 release ibuprofen 800 mg tablet 800 mg PO Q8H #60 tabs 04/22/24 montelukast 10 mg tablet 10 mg PO BEDTIME 30 days #30 tabs 04/26/24 cetirizine 10 mg tablet (All Day 10 mg PO DAILY PRN allergy 10/21/24 Allergy (cetirizine)) symptoms 90 days #90 tabs norethindrone (contraceptive) 0.35 0.35 mg PO DAILY #84 tabs 01/17/25 mg tablet doxylamin 12.5 mg-PSE 10 mg-DM 20 1 packet PO Q4H PRN flu symptoms 07/01/25 mg-acetaminophen 650 mg oral pwdr #6 ea pk ([place] Plus Cold-Flu) fluticasone propionate 50 1 spray intranasal Q12H #16 grams 07/01/25 mcg/actuation nasal spray,suspension (Children's Flonase Allergy Relief) albuterol sulfate 90 mcg/actuation 1 inh inhalation QID PRN shortness 07/04/25 aerosol inhaler (Ventolin HFA) of breath or wheezing #8.5 grams levalbuterol tartrate 45 2 puff inhalation Q4-6H PRN 07/04/25 mcg/actuation aerosol inhaler shortness of breath 30 days #15 (Xopenex HFA) grams pseudoephedrine HCl 120 mg 120 mg PO Q12H #20 tabs 07/06/25 tablet,extended release (Sudafed 12 Hour) cromolyn 4 % eye drops 1 drp ophthalmic (eye) QID 30 days 08/10/25 #10 mL cholecalciferol (vitamin D3) 25 25 mcg PO DAILY 90 days #90 caps 08/14/25 mcg (1,000 unit) capsule ferrous sulfate 325 mg (65 mg 325 mg PO DAILY 90 days #90 tabs 08/14/25 iron) tablet diphenhydramine HCl 50 mg tablet 50 mg PO BEDTIME PRN sleep #14 tabs 09/14/25 (Benadryl Allergy) bupropion HCl 150 mg 24 hr tablet, 150 mg PO QAM 90 days #90 tabs 09/25/25 extended release ropinirole 1 mg tablet 1 mg PO BEDTIME 90 days #90 tabs 09/25/25 ketorolac 10 mg tablet 10 mg PO Q6H PRN pain #20 tabs 10/10/25 methocarbamol 750 mg tablet 1,500 mg (2 x 750 mg) PO Q8H PRN 10/10/25 pain, moderate #24 tabs prednisone 10 mg tablets in a dose 10 mg PO DIRECTED #48 ea 10/10/25 pack Allergies Allergy/AdvReac Type Severity Reaction Status Date / Time No Known Allergies Allergy Verified 10/10/25 01:40 [facility] Past Medical History Medical History Left breast mass Hypovitaminosis D Class 1 obesity with body mass index (BMI) of 33.0 to 33.9 in adult Physical exam Recurrent UTI UTI (urinary tract infection) Surgical History History of umbilical hernia repair Family History Family History Father No problems noted. Mother No problems noted. Social History Social History Housing: Apartment Alcohol intake: current Alcohol intake frequency: holidays/special occasions only Alcohol type: wine Patient Tobacco Use Status: Former Tobacco user Smoked in Last 30 Days: No e-Cigarette/Vaping Use: Never Used Second Hand Smoke Exposure: No Use of substances other than those prescribed or required for medical reasons: No Advance Directives: No Advance Directives Information Provided: Yes service: No Current occupational status: unemployed Cognitive needs: No Hearing needs: No Vision needs: No Physical Exam ED Vital Signs: Vital Signs - 24 hr 10/10/25 01:39 10/10/25 02:57 10/10/25 03:05 Temperature 97.3 F 98 F 98 F Pulse Rate 90 92 92 Respiratory Rate 20 18 18 Blood Pressure 123/74 121/64 121/64 Pulse Oximetry 100 100 100 Oxygen Delivery Method Room Air Room Air Room Air BMI result Body Mass Index 30.1 Medications Administered Discontinued Medications Generic Name Dose Route Start Last Admin Trade Name Freq PRN Reason Stop Dose Admin Diazepam 10 mg 10/10/25 02:38 10/10/25 02:58 Diazepam 5 Mg Tablet PO 10/10/25 02:39 10 mg ONCE ONE Administration Ketorolac Tromethamine 15 mg 10/10/25 02:38 10/10/25 02:58 Ketorolac Tromethamine 15 Mg/Ml Vial IM 10/10/25 02:39 15 mg ONCE ONE Administration Prednisone 10 mg 10/10/25 02:38 10/10/25 02:58 Prednisone 10 Mg Tablet PO 10/10/25 02:39 10 mg ONCE ONE Administration Medical Decision Making Medical Decision Making MDM Narrative: 44-year-old female with a history of obesity, restless leg syndrome, known arthritis, known chronic lumbar degenerative changes, chronic pain syndrome, who presents with low back pain. Patient states she has been having left sided lumbar pain for the past 2 days. She can not account for a specific mechanism of injury, but she states she feels as if she ?pulled muscles in her back and ?. Patient states she can not get comfortable, pain worse with position change. Denies radiation of pain down the left lower extremity, weakness of lower extremity, paresthesia, urinary retention or bowel incontinence. Problem: Obesity, chronic pain including low back pain History: Per patient I have considered the following differential diagnoses: Lumbar strain, lumbar radiculopathy, cauda equina, compression fracture Plan: No indication for labs or imaging, there was no traumatic injury that would warrant imaging. We will treat accordingly. She is not having radicular symptoms, she has having musculoskeletal strain with spasm. She has no red flags that are concerning for cord compression. Differential Diagnosis Differential Diagnoses: The differential diagnosis associated with the presentation includes See medical decision-making Admission/Observation Consideration of admission/observation: Escalation of care including admission/observation considered Not applicable Discharge Plan Discharge Clinical Impression: Acute lumbosacral myofascial strain Patient Disposition: Home, Self-Care Instructions: Low Back Strain (ED), Lower Back Exercises (ED) Additional Instructions: You are being treated for lumbar strain. See home care instructions. Take the steroid taper as directed this is an anti-inflammatory. Use the ketorolac as directed this is an additional anti-inflammatory take it with food. Use the methocarbamol as needed for further pain, this is a muscle relaxant. Do not drive or operate machinery while taking this medication. You should follow up with your primary care provider, you may require physical therapy as an outpatient, they can help expedite this process for you. Prescriptions: New ketorolac 10 mg tablet 10 mg PO Q6H PRN (Reason: pain) Qty: 20 0RF Rx Instructions: maximum total duration of 5 days from all oral, intranasal, or parenteral formulations. Patient received an intramuscular dose of Toradol here in the emergency room prednisone 10 mg tablets,dose pack 10 mg PO DIRECTED Qty: 48 0RF Rx Instructions: see taper instructions methocarbamol 750 mg tablet 1,500 mg PO Q8H PRN (Reason: pain, moderate) Qty: 24 0RF No Action ascorbic acid (vitamin C) 1,000 mg tablet 1,000 mg PO DAILY 90 Days Qty: 90 1RF pantoprazole 40 mg tablet,delayed release (DR/EC) 40 mg PO DAILY Qty: 90 3RF Rx Instructions: take one tablet half an hour before breakfast cetirizine [All Day Allergy (cetirizine)] 10 mg tablet 10 mg PO DAILY PRN (Reason: allergy symptoms) 90 Days Qty: 90 0RF albuterol sulfate [Ventolin HFA] 90 mcg/actuation HFA aerosol inhaler 1 inh inhalation QID PRN (Reason: shortness of breath or wheezing) Qty: 8.5 1RF levalbuterol tartrate [Xopenex HFA] 45 mcg/actuation HFA aerosol inhaler 2 puff inhalation Q4-6H PRN (Reason: shortness of breath) 30 Days Qty: 15 3RF ferrous sulfate 325 mg (65 mg iron) tablet 325 mg PO DAILY 90 Days Qty: 90 1RF cholecalciferol (vitamin D3) 25 mcg (1,000 unit) capsule 25 mcg PO DAILY 90 Days Qty: 90 3RF Benadryl Allergy 50 mg tablet 50 mg PO BEDTIME PRN (Reason: sleep) Qty: 14 0RF diphenhydramine HCl [Benadryl] 25 mg capsule 50 mg PO TID PRN (Reason: allergic reaction) Qty: 30 0RF [place]a-[place] Plus Cold-Flu 12.5-10-20-650 mg powder in packet 1 packet PO Q4H PRN (Reason: flu symptoms) Qty: 6 0RF Rx Instructions: DNExceed 5 doses/24h fluticasone propionate [Children's Flonase Allergy Rlf] 50 mcg/actuation spray,suspension 1 spray intranasal Q12H Qty: 16 0RF Rx Instructions: administer into each nostril fexofenadine [Allergy Relief (fexofenadine)] 180 mg tablet 180 mg PO DAILY Qty: 14 0RF montelukast 10 mg tablet 10 mg PO BEDTIME 30 Days Qty: 30 0RF ibuprofen 800 mg tablet 800 mg PO Q8H Qty: 60 0RF norethindrone (contraceptive) 0.35 mg tablet 0.35 mg PO DAILY Qty: 84 3RF Rx Instructions: Start at beginning of the next period. bupropion HCl 150 mg tablet extended release 24 hr 150 mg PO QAM 90 Days Qty: 90 0RF ropinirole 1 mg tablet 1 mg PO BEDTIME 90 Days Qty: 90 1RF Rx Instructions: administer 1-3 hours before bedtime mecobalamin (vitamin B12) 1,000 mcg lozenge 1,000 mcg PO DAILY Rx Instructions: allow to dissolve in mouth OR may chew lightly before swallowing famotidine [Pepcid] 20 mg tablet 20 mg PO BEDTIME PRN pseudoephedrine HCl [Sudafed 12 Hour] 120 mg tablet extended release 120 mg PO Q12H Qty: 20 0RF albuterol sulfate 2.5 mg /3 mL (0.083 %) solution for nebulization 2.5 mg inhalation ONCE Qty: 3 0RF cromolyn 4 % drops 1 drp ophthalmic (eye) QID 30 Days Qty: 10 1RF Interventions: ED Discharge Assessment Last Done: 10/10/25 03:05 Discharge Date/Time: 10/10/25 03:06 Print Language: Peruvian
[2025-10-10 02:57] VITALS: BP 121/64; PULSE 92; RESP 18; TEMP 36.6; O2SAT 100
[2025-10-10 03:05] VITALS: BP 121/64; PULSE 92; RESP 18; TEMP 36.6; O2SAT 100
== END 2025-10-10 03:06 | disposition home or self-care (01) ==
PROVIDERS: Emergency Provider Emergency Medicine; PCP Internal Medicine
DX: S39.012A Strain of muscle, fascia and tendon of lower back, initial encounter (principal); X58.XXXA Exposure to other specified factors, initial encounter; Y93.9 Activity, unspecified; Y92.9 Unspecified place or not applicable
CPT/HCPCS: 96372; 99284; J1885

== ENCOUNTER → 2025-10-23 10:34 | Outpatient (REF) | payer OTHER, SELFPAY | LOC: HO.SL 10:34 | PROVIDERS: PCP Internal Medicine; Visit Provider Physician Assistant Medical | DX: N92.0 Excessive and frequent menstruation with regular cycle (principal); G47.19 Other hypersomnia | CPT/HCPCS: 95806; 99212 ==

== ENCOUNTER → 2025-10-23 10:44 | Outpatient (BNV) | payer OTHER, SELFPAY | PROVIDERS: PCP Internal Medicine; Visit Provider Psychiatry & Neurology Neurology | DX: G47.33 Obstructive sleep apnea (adult) (pediatric) (principal) | CPT/HCPCS: 95806 ==

== ENCOUNTER 2025-10-23 13:29 | Outpatient (AMB) | payer OTHER, SELFPAY ==
--- NOTE | 2025-10-23 13:39 | A.OFFVIS_ITS ---
Vital Signs 10/23/25 13:40 Height 5 ft 3 in Weight 170 lb BMI 30.1 BP 120/72 Intake Visit Reasons: Heavy bleeding Intake Note: Patient has concerns of heavy menstraul, blood clots and painful cramps. Medical Billing Associate: Medical Billing Associate Present (Jackelyn) Accompanied by: Self / Same As Patient Allergies No Known Allergies Allergy (Verified 10/23/25 13:40) Medication List - Last Reconciled 10/23/25 by Ros Preciado CNM albuterol sulfate 90 mcg/actuation (Ventolin HFA) 1 inh inhalation QID PRN ascorbic acid (vitamin C) 1,000 mg PO DAILY 90 days bupropion HCl XL 150 mg PO QAM 90 days cetirizine (All Day Allergy (cetirizine)) 10 mg PO DAILY PRN 90 days cholecalciferol (vitamin D3) 25 mcg PO DAILY 90 days cromolyn 4% 1 drp ophthalmic (eye) QID 30 days diphenhydramine HCl (Benadryl) 50 mg (2 x 25 mg) PO TID PRN diphenhydramine HCl (Benadryl Allergy) 50 mg PO BEDTIME PRN [id number]-acetaminophen 12.5-10-20-650 mg (Alla-[place] Plus Cold-Flu) 1 packet PO Q4H PRN famotidine (Pepcid) 20 mg PO BEDTIME PRN ferrous sulfate 325 mg PO DAILY 90 days fexofenadine (Allergy Relief (fexofenadine)) 180 mg PO DAILY fluticasone propionate 50 mcg/actuation (Children's Flonase Allergy Relief) 1 spray intranasal Q12H ibuprofen 800 mg PO Q8H ketorolac 10 mg PO Q6H PRN levalbuterol tartrate 45 mcg/actuation (Xopenex HFA) 2 puffs inhalation Q4-6H PRN 30 days mecobalamin (vitamin B12) 1,000 mcg PO DAILY montelukast 10 mg PO BEDTIME 30 days norethindrone (contraceptive) 0.35 mg PO DAILY pantoprazole 40 mg PO DAILY pseudoephedrine HCl ER (Sudafed 12 Hour) 120 mg PO Q12H ropinirole 1 mg PO BEDTIME 90 days Is last menstrual period known: Yes Last menstrual period: 10/20/25 Post menopausal: No Patient : No HPI HPI Heavy bleeding: Details: Complains of heavy may menses has been on norethindrone for them she had been given a Mirena IUD 18 years ago and then had also try to NuvaRing. She had intervening pregnancies She says her periods are still heavy and she just wants them to be gone. She is on day 5 of her menses now she says it started on October 19. She says she uses pads and tampons she has been using tampons today [facility] Medical History Left breast mass Hypovitaminosis D Class 1 obesity with body mass index (BMI) of 33.0 to 33.9 in adult Physical exam Recurrent UTI UTI (urinary tract infection) Surgical History History of umbilical hernia repair Family History Father No problems noted. Mother No problems noted. Social History Housing: Apartment Alcohol intake: current Alcohol intake frequency: holidays/special occasions only Alcohol type: wine Patient Tobacco Use Status: Former Tobacco user e-Cigarette/Vaping Use: Never Used Second Hand Smoke Exposure: No Patient : No service: No Current occupational status: unemployed Cognitive needs: No Hearing needs: No Vision needs: No Female Reproductive History Menstrual Age of Menarche: 14 Date of last menstrual period: 10/20/25 control method: pills Physical Exam Vital Signs: Last Vital Signs BP 120/72 10/23/25 13:40 BMI result Body Mass Index 30.1 Other: External exam no blood evident vagina pink moist with scant end of menses visible cervix appears pink and smooth and healthy appearing no heavy bleeding evident during this exam but patient did just take out a tampon. Testing done for gonorrhea chlamydia trichomoniasis bacterial vaginosis and yeast in anticipation of a future Mirena placement. Assessment & Plan Assessment & Plan (1) Menorrhagia with regular cycle: Code(s): N92.0 - Excessive and frequent menstruation with regular cycle Category: Medical Plan Discussed and reviewed previous interventions. Patient had a pelvic ultrasound in the spring which was normal. She has tried norethindrone OCPs and they have had very little effect on her menses. Discussed that the next step to try would be a Mirena. She inquired about a ParaGard but I informed her that that would make her menses heavier if anything Mirena is not known to increase weight which was a concern for her though Depo-Provera and Nexplanon might. She also inquired about surgery and I told her that endometrial ablation would not be approved unless she had 1st tried less invasive methods such as the Mirena I recommend that is since her menses are almost gone at this point that she return at the beginning of her next menses and I recommend we do an endometrial biopsy and place the Mirena at that 1 visit. Her menses are normal and regular so an EMB is a precaution. Coding Level of Care Code Est Pt Level 3 (32958) Diagnoses Menorrhagia with regular cycle N92.0
[2025-10-23 13:40] VITALS: BP 120/72; BMI 30.1
== END 2025-10-23 14:23 | disposition home or self-care (01) ==
LOC: HO.HWS 13:29
PROVIDERS: PCP Internal Medicine; Visit Provider Advanced Practice Midwife
DX: N92.0 Excessive and frequent menstruation with regular cycle (principal)
CPT/HCPCS: 99213

== ENCOUNTER 2025-10-23 15:30 | Outpatient (REF) | payer OTHER, SELFPAY ==
[2025-10-23 23:13] LABS: Bacterial Vaginosis PCR POSITIVE (Negative); Candida Group PCR NOT DETECTED (Not Detect); Candida glab krusei PCR NOT DETECTED (Not Detect); Trichomonas vaginalis PCR NOT DETECTED (Not Detect)
[2025-10-23 23:44] LABS: CT PCR NOT DETECTED (Not Detect.); NG PCR NOT DETECTED (Not Detect.)
== END 2025-10-23 15:31 | disposition home or self-care (01) ==
LOC: HO.LNP 15:30
PROVIDERS: Visit Provider Advanced Practice Midwife
DX: Z20.2 Contact with and (suspected) exposure to infections with a predominantly sexual mode of transmission (principal); N93.9 Abnormal uterine and vaginal bleeding, unspecified
CPT/HCPCS: 81515; 87491; 87591

== ENCOUNTER 2025-11-02 08:45 | Outpatient (REF) | payer OTHER, SELFPAY ==
--- NOTE | ~2025-11-02 | XR_ITS ---
EXAMINATION: XR WRIST 1-2 VIEWS RIGHT HISTORY: M25.531 - Pain in right wrist COMPARISON: There are no prior studies available for comparison. FINDINGS: Four views of the right wrist including a scaphoid view are submitted. Osseous mineralization is normal. There is no fracture or dislocation. The joint spaces are preserved. The soft tissues are unremarkable. XR/XR wrist RT 2V IMPRESSION: Unremarkable examination of the right wrist. Electronically signed by: Gasper Henry MD 11/02/2025 09:06 AM [facility]
== END 2025-11-02 08:46 | disposition home or self-care (01) ==
LOC: HO.XRAY 08:45
PROVIDERS: PCP Internal Medicine; Visit Provider Internal Medicine
DX: M25.531 Pain in right wrist (principal)
CPT/HCPCS: 73100

== ENCOUNTER → 2025-11-02 08:47 | Outpatient (BNV) | payer OTHER, SELFPAY | PROVIDERS: PCP Internal Medicine; Visit Provider Radiology Diagnostic Radiology | DX: M25.531 Pain in right wrist (principal) | CPT/HCPCS: 73100 ==

== ENCOUNTER 2025-11-07 13:56 | Outpatient (REF) | payer OTHER, SELFPAY ==
[2025-11-08 00:20] LABS: Bacterial Vaginosis PCR NEGATIVE (Negative); Candida Group PCR DETECTED (Not Detect); Candida glab krusei PCR NOT DETECTED (Not Detect); Trichomonas vaginalis PCR NOT DETECTED (Not Detect)
[2025-11-08 00:51] LABS: CT PCR NOT DETECTED (Not Detect.); NG PCR NOT DETECTED (Not Detect.)
== END 2025-11-07 13:57 | disposition home or self-care (01) ==
LOC: HO.LNP 13:56
PROVIDERS: PCP Internal Medicine; Visit Provider Advanced Practice Midwife
DX: N90.89 Other specified noninflammatory disorders of vulva and perineum (principal); R30.0 Dysuria; Z20.2 Contact with and (suspected) exposure to infections with a predominantly sexual mode of transmission
CPT/HCPCS: 81515; 87086; 87147; 87491; 87591; 99212

== ENCOUNTER 2025-11-07 13:56 | Outpatient (AMB) | payer OTHER, SELFPAY ==
--- NOTE | 2025-11-07 14:09 | A.OFFVIS_ITS ---
Vital Signs 11/07/25 14:13 Height 5 ft 3 in Weight 176 lb 2 oz BMI 31.2 BP 110/64 Blood Pressure Location Lt brachial Position Sitting Intake Visit Reasons: vaginal itching Intake Note: finished metronidazole 1 week ago [employer] Required: No Allergies No Known Allergies Allergy (Verified 11/07/25 14:17) Medication List - Last Reconciled 11/07/25 by Kathy Francis LPN albuterol sulfate 90 mcg/actuation (Ventolin HFA) 1 inh inhalation QID PRN ascorbic acid (vitamin C) 1,000 mg PO DAILY 90 days bupropion HCl XL 150 mg PO QAM 90 days cetirizine (All Day Allergy (cetirizine)) 10 mg PO DAILY PRN 90 days cholecalciferol (vitamin D3) 25 mcg PO DAILY 90 days cromolyn 4% 1 drp ophthalmic (eye) QID 30 days diphenhydramine HCl (Benadryl) 50 mg (2 x 25 mg) PO TID PRN diphenhydramine HCl (Benadryl Allergy) 50 mg PO BEDTIME PRN famotidine (Pepcid) 20 mg PO BEDTIME PRN ferrous sulfate 325 mg PO DAILY 90 days fexofenadine (Allergy Relief (fexofenadine)) 180 mg PO DAILY fluticasone propionate 50 mcg/actuation (Children's Flonase Allergy Relief) 1 spray intranasal Q12H ibuprofen 800 mg PO Q8H ketorolac 10 mg PO Q6H PRN levalbuterol tartrate 45 mcg/actuation (Xopenex HFA) 2 puffs inhalation Q4-6H P RN 30 days mecobalamin (vitamin B12) 1,000 mcg PO DAILY montelukast 10 mg PO BEDTIME 30 days norethindrone (contraceptive) 0.35 mg PO DAILY ropinirole 1 mg PO BEDTIME 90 days Is last menstrual period known: Yes Last menstrual period: 10/25/25 Post menopausal: No Patient : No Do you need a note to return to daycare/school/sports/work: No PFSH Medical History Left breast mass Hypovitaminosis D Class 1 obesity with body mass index (BMI) of 33.0 to 33.9 in adult Physical exam Recurrent UTI UTI (urinary tract infection) Surgical History History of umbilical hernia repair Family History Father No problems noted. Mother No problems noted. Social History Housing: Apartment Alcohol intake: current Alcohol intake frequency: holidays/special occasions only Alcohol type: wine Patient Tobacco Use Status: Former Tobacco user e-Cigarette/Vaping Use: Never Used Second Hand Smoke Exposure: No Patient : No service: No Current occupational status: unemployed Cognitive needs: No Hearing needs: No Vision needs: No Female Reproductive History Menstrual Age of Menarche: 14 Duration of menses: 6-7 days Date of last menstrual period: 10/25/25 control method: pills Total pregnancies: 5 Full term: 5 History of abnormal pap smear: Yes History of STI: No History of abnormal mammogram: No Physical Exam Vital Signs: Last Vital Signs BP 110/64 11/07/25 14:13 BMI result Body Mass Index 31.2 Results AMB Urinalysis Automated WC UR Glucose Last Edit by Kathy Francis LPN on 11/07/25 14:46 UR Ketone Last Edit by Kathy Francis LPN on 11/07/25 14:46 UR Specific [place] 1.010 Last Edit by Kathy Francis LPN on 11/07/25 14:46 UR Blood Last Edit by Kathy Francis LPN on 11/07/25 14:46 UR Ph 7.5 Last Edit by Kathy Francis LPN on 11/07/25 14:46 UR Protein Last Edit by Kathy Francis LPN on 11/07/25 14:46 UR Nitrite Last Edit by Kathy Francis LPN on 11/07/25 14:46 UR Leukocytes Moderate Last Edit by Kathy Francis LPN on 11/07/25 14 :46 Assessment & Plan Assessment & Plan Orders: Orders CT NG by PCR Vag/Cerv Today Z11.3 - Encounter for screening for infections with a predominantly sexual mode of transmission Bacterial Vaginosis Panel Today Z11.3 - Encounter for screening for infections with a predominantly sexual mode of transmission Urine Culture Today N39.0 - Urinary tract infection, site not specified Medications: New terconazole 0.4% 1 appful vaginal BEDTIME 45 grams 0RF 7 days clotrimazole-betamethasone 1-0.05 % apply externally a thin coat to the area 1 appl topical BID 45 grams 0RF itching 7 days nitrofurantoin monohyd/m-cryst 100 mg (Macrobid) must administer with a meal/food 100 mg PO BID 10 caps 0RF UTI 5 days Coding
[2025-11-07 14:13] VITALS: BP 110/64; BMI 31.2
--- NOTE | 2025-11-07 14:24 | MHC.OFFVIS ---
Vital Signs 11/07/25 14:13 Height 5 ft 3 in Weight 176 lb 2 oz BMI 31.2 BP 110/64 Blood Pressure Location Lt brachial Position Sitting Intake Visit Reasons: vaginal itching Allergies No Known Allergies Allergy (Verified 11/07/25 14:17) Medication List - Last Reconciled 11/07/25 by Kathy Francis LPN albuterol sulfate 90 mcg/actuation (Ventolin HFA) 1 inh inhalation QID PRN ascorbic acid (vitamin C) 1,000 mg PO DAILY 90 days bupropion HCl XL 150 mg PO QAM 90 days cetirizine (All Day Allergy (cetirizine)) 10 mg PO DAILY PRN 90 days cholecalciferol (vitamin D3) 25 mcg PO DAILY 90 days cromolyn 4% 1 drp ophthalmic (eye) QID 30 days diphenhydramine HCl (Benadryl) 50 mg (2 x 25 mg) PO TID PRN diphenhydramine HCl (Benadryl Allergy) 50 mg PO BEDTIME PRN famotidine (Pepcid) 20 mg PO BEDTIME PRN ferrous sulfate 325 mg PO DAILY 90 days fexofenadine (Allergy Relief (fexofenadine)) 180 mg PO DAILY fluticasone propionate 50 mcg/actuation (Children's Flonase Allergy Relief) 1 spray intranasal Q12H ibuprofen 800 mg PO Q8H ketorolac 10 mg PO Q6H PRN levalbuterol tartrate 45 mcg/actuation (Xopenex HFA) 2 puffs inhalation Q4-6H PRN 30 days mecobalamin (vitamin B12) 1,000 mcg PO DAILY montelukast 10 mg PO BEDTIME 30 days norethindrone (contraceptive) 0.35 mg PO DAILY ropinirole 1 mg PO BEDTIME 90 days HPI Comments Details: Patient is here today with vulvar irritation, has white clumpy vaginal discharge, odor and burning with urination. She reports she is prone to UTI's. Current POP user. Sexually active with retirement partner. [facility] Medical History Left breast mass Hypovitaminosis D Class 1 obesity with body mass index (BMI) of 33.0 to 33.9 in adult Physical exam Recurrent UTI UTI (urinary tract infection) Surgical History History of umbilical hernia repair Family History Father No problems noted. Mother No problems noted. Social History Housing: Apartment Alcohol intake: current Alcohol intake frequency: holidays/special occasions only Alcohol type: wine Patient Tobacco Use Status: Former Tobacco user e-Cigarette/Vaping Use: Never Used Second Hand Smoke Exposure: No Patient : No service: No Current occupational status: unemployed Cognitive needs: No Hearing needs: No Vision needs: No Female Reproductive History Menstrual Age of Menarche: 14 Duration of menses: 6-7 days control method: pills Total pregnancies: 5 Full term: 5 Date of last pap smear: 06/25/23 History of abnormal pap smear: No History of STI: No Date of Mammogram: 04/28/25 History of abnormal mammogram: No Review of Systems Const All systems reviewed & are unremarkable except as noted in HPI and below Physical Exam Vital Signs: Last Vital Signs BP 110/64 11/07/25 14:13 BMI result Body Mass Index 31.2 Const General: cooperative, healthy appearing and no acute distress Orientation/consciousness: patient oriented x3 GI Inspection: Yes normal to inspection Palpation (GI): Soft to palpation and Other GI palpation findings present (Nontender) Rectal Exam - Female: visual inspection normal General: Yes bladder normal to palpation External Female Exam: normal appearance of the urethra and erythema Speculum Exam - Vagina: normal appearance of the vagina, normal palpation and abnormal vaginal discharge (White clumpy) Speculum Exam - Cervix: normal appearance of the cervix and normal palpation Bimanual exam- vagina & uterus: normal bimanual exam, normal palpation, uterine size normal, bladder normal to palpation, normal palpation, uterine shape normal and non-tender Bimanual Exam- Adnexa, other: normal adnexae Neuro General: patient oriented x3 Results AMB Urinalysis Automated WC UR Glucose Last Edit by Kathy Francis LPN on 11/07/25 14:46 UR Ketone Last Edit by Kathy Francis LPN on 11/07/25 14:46 UR Specific [place] 1.010 Last Edit by Kathy Francis LPN on 11/07/25 14:46 UR Blood Last Edit by Kathy Francis LPN on 11/07/25 14:46 UR Ph 7.5 Last Edit by Kathy Francis LPN on 11/07/25 14:46 UR Protein Last Edit by Kathy Francis LPN on 11/07/25 14:46 UR Nitrite Last Edit by Kathy Francis LPN on 11/07/25 14:46 UR Leukocytes Moderate Last Edit by Kathy Francis LPN on 11/07/25 14:46 Assessment & Plan Assessment & Plan (1) Dysuria: Code(s): R30.0 - Dysuria Plan: Urine clean catch obtained, 2+ leukocytes-plan urine culture. Initiate antibiotic therapy while waiting for final culture results. Increase p.o. fluids mostly water avoid Discussed; Increase hydration, mostly water. Avoid carbonated, sugary or artificial sweetened beverages. Always clean and wipe from front to back. Take as directed and complete any medications that may be ordered. Report to the ED immediately if any fever >100.4, flu like symptoms, lightheadedness, dizziness, significant flank pain. The patient expressed understanding and agreement with the plan of care. All of her questions and concerns were addressed to the best of my ability. (2) Vulvar irritation: Code(s): N90.89 - Other specified noninflammatory disorders of vulva and perineum Plan: BV panel and GC chlamydia obtained. Await results for final plan of care. The patient expressed understanding and agreement with the plan of care. All of her questions and concerns were addressed to the best of my ability. Plan Instructions: Clean with warm water, no soaps, scented products. Use a cool cloth to the area several times a day if swollen and/or uncomfortable. Wear loose, cotton underclothes, avoid tight outer clothing. Air when possible. No coitus until well healed. Complete all medications as prescribed. Await final pending results for any changes in the plan of care. Call the office if there is no improvement in 24-48hrs., or if worsening symptoms. The patient expressed understanding and agreement with the plan of care. All of her questions and concerns were addressed to the best of my ability. This note is constructed using voice recognition software. While every effort has been made to ensure accuracy, tactical air defense controller errors may have been included. Orders: Orders CT NG by PCR Vag/Cerv Today Z11.3 - Encounter for screening for infections with a predominantly sexual mode of transmission Bacterial Vaginosis Panel Today Z11.3 - Encounter for screening for infections with a predominantly sexual mode of transmission Urine Culture Today N39.0 - Urinary tract infection, site not specified Medications: New terconazole 0.4% 1 appful vaginal BEDTIME 45 grams 0RF 7 days clotrimazole-betamethasone 1-0.05 % apply externally a thin coat to the area 1 appl topical BID 45 grams 0RF itching 7 days nitrofurantoin monohyd/m-cryst 100 mg (Macrobid) must administer with a meal/food 100 mg PO BID 10 caps 0RF UTI 5 days Coding Level of Care Code Est Pt Level 3 (17544) Diagnoses Dysuria R30.0 Vulvar irritation N90.89
== END 2025-11-07 14:54 | disposition home or self-care (01) ==
LOC: HO.HWS 13:57
PROVIDERS: PCP Internal Medicine; Visit Provider Advanced Practice Midwife
DX: R30.0 Dysuria (principal); N90.89 Other specified noninflammatory disorders of vulva and perineum
CPT/HCPCS: 99213